=== PATIENT | female | born 1940 | race Caucasian/White ===

== ENCOUNTER 2016-08-07 02:57 | Inpatient (IN) ==
[2016-08-07] MEDS ORDERED: SODIUM CHLORIDE 0.9% 500 ML IV STA (03:06)
[2016-08-07] MEDS ORDERED: BUMETANIDE 1 MG/4 ML VIAL IV STA (03:06)
[2016-08-07] MEDS ORDERED: NITROGLYCERIN 2% OINT 1 INCH/GM PACK TOP STA (03:06)
[2016-08-07] MEDS ORDERED: ONDANSETRON 4 MG/2 ML VIAL IV STA (03:06)
[2016-08-07] MEDS ORDERED: MORPHINE 2 MG/1 ML SYRINGE IV STA (03:06)
[2016-08-07] MEDS ORDERED: NITROGLYCERIN 2% OINT 1 INCH/GM PACK TOP ONE (03:19)
[2016-08-07] MEDS ORDERED: ONDANSETRON 4 MG/2 ML VIAL ONE (03:19)
[2016-08-07] MEDS ORDERED: BUMETANIDE 1 MG/4 ML VIAL ONE (03:19)
[2016-08-07] MEDS ORDERED: MORPHINE 2 MG/1 ML SYRINGE ONE (03:20)
[2016-08-07 03:32] LABS: Allen Test Positive
[2016-08-07 03:34] LABS: ABG Base Excess -1.3 MMOL/L (-2.5-2.5); ABG HCO3 23.2 MMOL/L (20-26); ABG Oxygen Saturation 94.5 % (95-100); ABG PCO2 50.4 MM HG (35-48); ABG PH 7.313 (7.35-7.45); ABG PO2 76.9 MM HG (80-95); ABG TCO2 22.8 MMOL/L (23-27)
--- NOTE | 2016-08-07 03:39 | Emergency Department Note ---
Perri Mock Emily, am scribing for, and in the presence of, Dax Espinoza MD 03: 14. Alexis Mock Robert M, MD, personally performed the services described in this documentation, ascribed by Radha Rayo in my presence, and it is both accurate and complete 338 . 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 Pt had heart cath in May 2016, but no stents. She reports having noticed pedal edema in right leg more so than left since May, but denies weight gain. No other complaint/pain in ED. Onset (ago): minute(s) Consistency: constant Severity: moderate Severity scale (1-10): 6 Quality: aching, burning Allergies/Adverse Reactions: Allergies Allergy/AdvReac Type Severity Reaction Status Date / Time No Known Allergies Allergy Unverified 05/28/16 22:21 Home Medications: Home Medications Medication Instructions Recorded Confirmed Type Aspirin [Aspirin EC] 81 mg PO DAILY 05/29/16 08/07/16 History Carvedilol [Coreg] 12.5 mg PO BID 05/29/16 08/07/16 History Estrogens(Conj) Tab [Premarin Tab] 0.625 mg PO DAILY 05/29/16 08/07/16 History Gabapentin Cap/Tab [Neurontin 300 mg PO TID 05/29/16 08/07/16 History Cap/Tab] Irbesartan 300 mg PO DAILY 05/29/16 08/07/16 History Levothyroxine Sodium 150 mcg PO DAILY 05/29/16 08/07/16 History Meloxicam 7.5 mg PO DAILY 05/29/16 08/07/16 History Morphine ER Tab [Ms Contin] 30 mg PO BID 05/29/16 08/07/16 History Oxycodone HCl/Acetaminophen 1 each PO BID PRN 05/29/16 08/07/16 History [Percocet 7.5-325 mg Tablet] cloNIDine HCl [Clonidine HCl] 0.3 mg PO BEDTIME 05/29/16 08/07/16 History cloNIDine TAB [Catapres Tab] 0.2 mg PO DAILY 05/29/16 08/07/16 History clonazePAM TAB [KlonoPIN] 0.5 mg PO BEDTIME 05/29/16 08/07/16 History amLODIPine [Norvasc] 5 mg PO DAILY #30 tablet 05/31/16 08/07/16 Rx hydroCHLOROthiazide 12.5 mg PO DAILY #30 capsule 05/31/16 08/07/16 Rx [Hydrochlorothiazide] Review of System - Review of System 12 point system: reviewed and no additional remarkable complaints except as stated - Review of System Constitutional: Absent: fever, weight gain Head/Ears/Nose/Throat: Absent: nasal drainage Respiratory: Present: respiratory distress Cardiovascular: Present: chest pain, edema (in lower extremities more so in right than left) Gastrointestinal: Absent: abdominal pain, nausea, vomiting Medical,Surgical,& Family Hx - Medical History Musculoskeletal: History of: Back/Neck Problems - Surgical History Thoracic Surgeries: Patient denies;: Organ Transplant Neurologic Surgeries: Patient denies: Neurologic Surgery Reproductive Surgeries: Surgical HX of;: Hysterectomy Orthopedic Surgeries: Surgical HX of;: Spinal Surgery - Family History Family History: noncontributory - Social History Functional capacity: independent ambulation Exam Vital Signs: Vital Signs Temperature 98.2 F 08/07/16 03:00 Pulse Rate 61 08/07/16 03:00 Respiratory Rate 24 08/07/16 03:13 Blood Pressure 162/61 08/07/16 03:00 O2 Sat by Pulse Oximetry 90 L 08/07/16 03:00 - General General appearance: alert, in no apparent distress - Head Head exam: Present: atraumatic, normocephalic - Eye Eye exam: Present: PERRL, EOMI - ENT ENT exam: Present: mucous membranes moist. Absent: mucous membranes dry - Neck Neck exam: Present: full ROM. Absent: tenderness - Chest Chest inspection: Present: symmetric chest wall rise. Absent: tenderness - Respiratory Respiratory exam: Present: accessory muscle use (too distant to speak), rales, respiratory distress (mild to moderate), rhonchi. Absent: normal lung sounds bilaterally - Cardiovascular Cardiovascular exam: Present: tachycardia (mild), normal heart sounds - Abdominal Exam Abdominal exam: Present: soft, normal bowel sounds. Absent: tenderness - Extremities Exam Extremities exam: Present: full ROM, pedal edema (+1 greater in right than left) . Absent: tenderness - Neurological Exam Neurological exam: Present: alert, oriented X3, CN II-XII intact. Absent: motor sensory deficit - Psychiatric Psychiatric exam: Present: normal affect, normal mood - Skin Skin exam: Present: warm, dry Course - Consultations Consultation #1: Dr. Nelly Hutchinson will admit the patient to Dr. Ardon. Time: 04:12 Results - Labs CBC & BMP: 08/07/16 03:06 08/07/16 03:06 Lab Results: I have reviewed the patients labs Labs: Lab Results WBC 7.2 T/CUMM (4-12) 08/07/16 03:06 RBC 4.42 MC/CUMM (3.8-5.5) 08/07/16 03:06 Hgb 12.5 GM/DL (12.0-16.0) 08/07/16 03:06 Hct 37.4 VOL% (35.7-47.0) 08/07/16 03:06 MCV 84.6 FL (87-102) L 08/07/16 03:06 MCH 28 PG (27-34) 08/07/16 03:06 MCHC 33.4 GM/DL (32-36) 08/07/16 03:06 RDW 12.9 % (9.3-17.3) 08/07/16 03:06 Plt Count 375 T/CUMM (130-400) 08/07/16 03:06 MPV 10.4 FL (9.6-12.0) 08/07/16 03:06 Neut % (Auto) 56.5 % (38.7-73.9) 08/07/16 03:06 Lymph % (Auto) 26.6 % (21.3-54.2) 08/07/16 03:06 Amite % (Auto) 9.1 % (1.7-12.7) 08/07/16 03:06 Eos % (Auto) 6.2 % (0.00-10.9) 08/07/16 03:06 Baso % (Auto) 1.0 % (0.0-0.8) H 08/07/16 03:06 Neut # (Auto) 4.1 10*3/uL (1.4-7.4) 08/07/16 03:06 Lymph # (Auto) 1.9 10*3/uL (1.4-4.0) 08/07/16 03:06 [place]ite # (Auto) 0.7 10*3/uL (0.11-0.8) 08/07/16 03:06 Eos # (Auto) 0.5 10*3/uL (0.0-0.87) 08/07/16 03:06 Baso # (Auto) 0.1 10*3/uL (0.0-0.2) 08/07/16 03:06 Immature Gran % 0.6 % 08/07/16 03:06 Nucleated RBC % 0.0 /100WBC 08/07/16 03:06 Immature Gran # 0.04 # 08/07/16 03:06 Nucleated RBCs # 0.00 10*3/uL 08/07/16 03:06 INR 0.9 08/07/16 03:06 PT Patient/Control Mix 9.5 SECS 08/07/16 03:06 Sodium 131 MMOL/L (136-145) L 08/07/16 03:06 Potassium 4.7 MMOL/L (3.5-5.1) 08/07/16 03:06 Chloride 96 MMOL/L (98-107) L 08/07/16 03:06 Carbon Dioxide 28 MMOL/L (21-32) 08/07/16 03:06 Anion Gap 11.7 MMOL/L (5.0-15.0) 08/07/16 03:06 BUN 28 MG/DL (7-18) H 08/07/16 03:06 Creatinine 1.50 MG/DL (0.55-1.02) H 08/07/16 03:06 GFR Calculation 33 ML/MIN 08/07/16 03:06 BUN/Creatinine Ratio 18.00 RATIO (6.00-20.00) 08/07/16 03:06 Glucose 140 MG/DL (74-106) H 08/07/16 03:06 Calculated Osmolality 269.7 MOS/KG (273-304) L 08/07/16 03:06 Calcium 8.4 MG/DL (8.5-10.1) L 08/07/16 03:06 Magnesium 2.9 MG/DL (1.8-2.4) H 08/07/16 03:06 Total Bilirubin < 0.39 MG/DL (0.2-1.0) 08/07/16 03:06 AST 110 U/L (0-37) H 08/07/16 03:06 ALT 26 U/L (13-56) 08/07/16 03:06 Alkaline Phosphatase 111 U/L (45-117) 08/07/16 03:06 Troponin I < 0.015 NG/ML (0.00-0.045) 08/07/16 03:06 Total Protein 7.3 G/DL (6.4-8.3) 08/07/16 03:06 Albumin 3.7 G/DL (3.4-5.0) 08/07/16 03:06 Globulin 3.6 G/DL (2.3-3.5) H 08/07/16 03:06 Albumin/Globulin Ratio 1.0 RATIO (1.1-2.2) L 08/07/16 03:06 ABG pH 7.313 (7.35-7.45) L 08/07/16 03:25 ABG pCO2 50.4 MM HG (35-48) H 08/07/16 03:25 ABG pO2 76.9 MM HG (80-95) L 08/07/16 03:25 ABG HCO3 23.2 MMOL/L (20-26) 08/07/16 03:25 ABG Total CO2 22.8 MMOL/L (23-27) L 08/07/16 03:25 ABG O2 Saturation 94.5 % (95-100) L 08/07/16 03:25 ABG Base Excess -1.3 MMOL/L (-2.5-2.5) 08/07/16 03:25 FiO2 36.00 PERCENT (0-100) 08/07/16 03:25 - Diagnostic Findings Procedure: Chest x-ray: image reviewed by me (Right lower lobe opacity which is slightly more prominent than the left suggests pneumonia versus asymmetric CHF/ pulmonary edema versus pleural effusion) Disposition Clinical Impression: Respiratory distress, Hypoxia, Hypertension, Chronic low back pain, Probable asymmetric pulmonary edema, CHF (congestive heart failure) Case discussed with: patient, patient's family Disposition: Still a Patient Condition: Stable Time of Disposition: 04:11
[2016-08-07 03:48] LABS: Alanine Aminotransferase 26 U/L (13-56); Albumin 3.7 G/DL (3.4-5.0); Alkaline Phosphatase 111 U/L (45-117); Aspartate Amino Transferase 110 U/L (0-37); Bilirubin,Total < 0.39 MG/DL (0.2-1.0); Blood Urea Nitrogen 28 MG/DL (7-18); Calcium 8.4 MG/DL (8.5-10.1); Glucose 140 MG/DL (74-106); Magnesium 2.9 MG/DL (1.8-2.4); Osmolality,Calculated 269.7 MOS/KG (273-304); Potassium 4.7 MMOL/L (3.5-5.1); Sodium 131 MMOL/L (136-145); Total Protein 7.3 G/DL (6.4-8.3); Troponin I Only < 0.015 NG/ML (0.00-0.045)
[2016-08-07 03:49] LABS: Basophils # 0.1 10*3/uL (0.0-0.2); Eosinophils # 0.5 10*3/uL (0.0-0.87); Eosinophils % 6.2 % (0.00-10.9); Hematocrit 37.4 VOL% (35.7-47.0); Hemoglobin 12.5 GM/DL (12.0-16.0); Immature Granulocytes % 0.6 %; Immature Granulocytes Absolute 0.04 #; Lymphocytes # 1.9 10*3/uL (1.4-4.0); Lymphocytes % 26.6 % (21.3-54.2); Mean Corpuscular HGB Conc 33.4 GM/DL (32-36); Mean Corpuscular Hemoglobin 28 PG (27-34); Mean Corpuscular Volume 84.6 FL (87-102); Mean Platelet Volume 10.4 FL (9.6-12.0); Monocytes # 0.7 10*3/uL (0.11-0.8); Monocytes % 9.1 % (1.7-12.7); Neutrophils # 4.1 10*3/uL (1.4-7.4); Neutrophils % 56.5 % (38.7-73.9); Platelet Count 375 T/CUMM (130-400); Red Blood Count 4.42 MC/CUMM (3.8-5.5); Red Cell Distribution Width 12.9 % (9.3-17.3); White Blood Count 7.2 T/CUMM (4-12)
[2016-08-07 03:59] LABS: INR 0.9; PT Patient Result 9.5 SECS
[2016-08-07] MEDS ORDERED: cefTRIAXone 1,000 MG VIAL IV STA (04:09)
[2016-08-07] MEDS ORDERED: ACETAMINOPHEN 325 MG TABLET PO PRN (04:18)
[2016-08-07] MEDS ORDERED: ONDANSETRON 4 MG/2 ML VIAL IV PRN (04:18)
[2016-08-07] MEDS ORDERED: BISACODYL 5 MG TABLET PO PRN (04:18)
[2016-08-07] MEDS ORDERED: IBUPROFEN 600 MG TABLET PO PRN (04:18)
[2016-08-07] MEDS ORDERED: cefTRIAXone 1,000 MG VIAL ONE (04:22)
--- NOTE | 2016-08-07 05:01 | EKG Report ---
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
--- NOTE | 2016-08-07 07:19 | XRay Report ---
XR chest 1V portable Indication: Shortness of breath. Chest one view: Worsening right lower lobe pneumonia when compared 05/28/2016. There is some degree of infiltrate left lung base as well, as well as diffuse coarsening of interstitium of both lungs. Borderline cardiomegaly is stable. Impression: Worsening bibasilar pneumonia since May, especially on the right. PROCEDURE INTERPRETED AT [facility] DEPARTMENT OF RADIOLOGY Final Report Signed by: Hector Shell M.D.
[2016-08-07] MEDS: MELOXICAM 7.5 MG TABLET PO SCH (08:33)
[2016-08-07] MEDS: hydroCHLOROthiazide 12.5 MG CAPSULE PO SCH (08:33)
[2016-08-07] MEDS: ESTROGENS (CONJ) 0.625 MG TABLET PO SCH (08:33)
[2016-08-07] MEDS: ASPIRIN EC 81 MG TABLET PO SCH (08:34)
[2016-08-07] MEDS: IRBESARTAN 150 MG TABLET PO SCH (08:34)
[2016-08-07] MEDS: amLODIPine 5 MG TABLET PO SCH (08:34)
[2016-08-07] MEDS: cloNIDine 0.1 MG TABLET PO SCH ×2 (08:34→20:54)
[2016-08-07] MEDS: LEVOTHYROXINE 150 MCG TABLET PO SCH (08:34)
[2016-08-07] MEDS: GABAPENTIN 300 MG CAPSULE PO SCH ×3 (08:40→20:41)
[2016-08-07] MEDS: FUROSEMIDE 40 MG/4 ML VIAL IV SCH ×2 (08:40→20:43)
[2016-08-07] MEDS: CARVEDILOL 12.5 MG TABLET PO SCH ×2 (08:40→20:55)
[2016-08-07] MEDS: DOCUSATE SODIUM 100 MG CAPSULE PO SCH ×2 (08:40→20:41)
[2016-08-07] MEDS: PANTOPRAZOLE 40 MG TABLET PO SCH (08:49)
[2016-08-07 08:58] LABS: Apearance,Urine CLEAR (Clear); Bilirubin,Urine Negative (Negative); Blood, Urine Negative (Negative); Glucose,Urine (UA) Negative (Negative); Hyaline Casts,Urine 1 /LPF (0-3); Ketones,Urine Negative (Negative); Nitrite,Urine Negative (Negative); Protein,Urine Negative; RBC,Urine <1 /HPF (0-4); Urine Color Light Yellow (Yellow); Urine Specific Gravity 1.003 (1.001-1.035); Urine Urobilinogen < 2.0 EU/DL (0.2-1.0)
--- NOTE | 2016-08-07 09:36 | Family Practice History&Phys ---
Assessment and Plan (1) Chronic low back pain Status: Chronic Assessment and plan: 618 7: We will continue current medication of MS Perez. I am going to hold her Percocet for now Current Visit: No (2) Hypertension Status: Chronic Assessment and plan: 08/07/2016: Continue her current medicines for hypertension. Current Visit: No (3) Chest pain unknown etiology Status: Resolved Assessment and plan: 08/07/2016:. I do not believe this is cardiac origin but abnormal repeat a set of slices enzymes. Current Visit: No History of Present Illness Chief complaint: Dyspnea, burning chest pain History of present illness: Ms. Whatley is a 76 year old female A primary patient of Dr. Osiel Ardon. 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 Came in early this morning with complaints of having chest discomfort but describes it as "burning". She apparently had a republican last night and did not get into bed until 130 to 2:00 in the morning and she was going to bed and developed this pain. She denies any alcohol. She does not smoke and is stable otherwise. It was not associated with any diaphoresis nausea or vomiting. It was equivocally reproducible with deep palpation anteriorly. There was no pain in her left arm and or jaw. She recently had a cath done this past May and it was reported there with is no significant coronary artery disease. At this time she is stable in no acute distress. I do not believe this is cardiac origin as her initial troponin is less than 0.015. I will repeat a set for clarity. She is certainly not having any pain at this time. CBC is normal. ABGs revealed a PO2 of 76 PCO2 50 pH of 7.3. Chemistry is grossly normal except for slight elevation of creatinine 1.5. Urinalysis was negative. Home Medications Medication Instructions Recorded Confirmed Type Aspirin [Aspirin EC] 81 mg PO DAILY 05/29/16 08/07/16 History Carvedilol [Coreg] 12.5 mg PO BID 05/29/16 08/07/16 History Estrogens(Conj) Tab [Premarin Tab] 0.625 mg PO DAILY 05/29/16 08/07/16 History Gabapentin Cap/Tab [Neurontin 300 mg PO TID 05/29/16 08/07/16 History Cap/Tab] Irbesartan 300 mg PO DAILY 05/29/16 08/07/16 History Levothyroxine Sodium 150 mcg PO DAILY 05/29/16 08/07/16 History Meloxicam 7.5 mg PO DAILY 05/29/16 08/07/16 History Morphine ER Tab [Ms Contin] 30 mg PO BID 05/29/16 08/07/16 History Oxycodone HCl/Acetaminophen 1 each PO BID PRN 05/29/16 08/07/16 History [Percocet 7.5-325 mg Tablet] cloNIDine HCl [Clonidine HCl] 0.3 mg PO BEDTIME 05/29/16 08/07/16 History cloNIDine TAB [Catapres Tab] 0.2 mg PO DAILY 05/29/16 08/07/16 History clonazePAM TAB [KlonoPIN] 0.5 mg PO BEDTIME 05/29/16 08/07/16 History amLODIPine [Norvasc] 5 mg PO DAILY #30 tablet 05/31/16 08/07/16 Rx hydroCHLOROthiazide 12.5 mg PO DAILY #30 capsule 05/31/16 08/07/16 Rx [Hydrochlorothiazide] Allergies Allergy/AdvReac Type Severity Reaction Status Date / Time No Known Allergies Allergy Unverified 05/28/16 22:21 12 point system: reviewed and no additional remarkable complaints except as stated (That mentioned in the H&P and physical) Medical,Surgical,& Family Hx - Medical History Cardio: History of: CHF (DX PRESENTLY), Hypertension No history of: Aneurysm, Cardiac Dysrhythmia, Cerebrovascular Disease, [place], Pacemaker, PVD, Valvular Heart Disease, Cardiovascular Problems HEENT: History of: Eye Problem (READING GLASSES), Glaucoma, HEENT Problems ( SINUS (COUGH,RUNNY NOSE)) No history of: Ear Problem, Dental Problems, Oral Cancer Endocrine: History of: Thyroid Disorder No history of: Adrenal Disease, Diabetes Mellitus (IDDM), Diabetes Mellitus ( NIDDM), Endocrine Cancer Respiratory: History of: Respiratory Problems (SOB IN MAY AND JULY 2016) No history of: Asthma, Bronchitis, COPD, Intubation, Obstructive Sleep Apnea , Pulmonary Embolism, Pulmonary Hypertension, Pneumonia, Lung Cancer Genitourinary: History of: Recurring Urinary Tract Infections (WHEN WAS YOUNG), Problems (STRESS INCONTINENCE) Gastrointestinal: History of: GI Problems (HX BURNING IN CHEST AT NIGHT BUT NO DIAGNOISIS GERD) Musculoskeletal: History of: Back/Neck Problems, Herniated Disk, Musculoskeletal Problems (ARTHRITIS) - Surgical History Cardiac Surgeries: Sugical HX of: Cardiac Catheterization (MAY 2016 DR VELAZQUEZ) Thoracic Surgeries: Patient denies;: Kidney (Renal Surgery), Lithotripsy, Nephrectomy, Organ Transplant, Lobectomy Neurologic Surgeries: Patient denies: Neurologic Surgery HEENT Surgeries: Surgical HX of: Thyroid Surgery Patient denies: Eye Surgery, Tonsilectomy & Adenoidectomy Abdominal Surgeries: Surgical HX of: Abdominal Surgery, Appendectomy, Colonoscopy, EGD Patient denies: Cholecystectomy, Gastric Bypass Surgery, Hernia Repair Reproductive Surgeries: Surgical HX of;: Gynecologic Surgery, Hysterectomy Patient denies;: Cystoscopy, Genitourinary Surgery Orthopedic Surgeries: Surgical HX of;: Orthopedic Surgery (HERNIATED DISC), Spinal Surgery (NECK) - Family History Family History: Reports;: Family Anesthesia Reaction (SISTER (TROUBLE WAKING UP) ), Family Hypertension (BRO,SIS), Family Stroke (DAD) Denies;: Family Cancer, Family Diabetes, Family Heart Disease, Family Hematology, Family Psychiatric Problems, Additional Family History - Social History Smoking Status: Never smoker Frequency of Alcohol Use: None Type of Drug Use: None Exam - Constitutional Vitals: Period Temp Pulse Resp BP Sys/[place] Pulse Ox Last 24 Hr 98.2 F-98.2 F 61-61 18-24 162-162/61-61 90 Exam: Generally a pleasant lady. She is alert and oriented. I am a little concerned about mild depression. HEENT pupils are equal reactive to light extraocular movements are intact neck supple and trachea midline. There is no thyromegaly Cardiovascular rate is regular no gallop or rub. EKG reveals sinus rhythm with prolonged IL interval and occasional PVCs. Lungs are clear no shortness of breath at this time Abdomen soft nondistended Extremities no clubbing cyanosis. She does have less than 1+ edema of her right leg on. This is somewhat chronic Results - Labs CBC & BMP: 08/07/16 03:06 08/07/16 03:06
[2016-08-07] MEDS: MORPHINE ER 30 MG TABLET PO SCH ×2 (11:01→20:41)
[2016-08-07 11:32] LABS: Troponin I Only 0.096 NG/ML (0.00-0.045)
[2016-08-07] MEDS: clonazePAM 0.5 MG TABLET PO SCH (20:41)
[2016-08-08 05:16] LABS: Basophils # 0.1 10*3/uL (0.0-0.2); Basophils % 1.2 % (0.0-0.8); Eosinophils # 0.5 10*3/uL (0.0-0.87); Eosinophils % 8.2 % (0.00-10.9); Hematocrit 32.5 VOL% (35.7-47.0); Hemoglobin 10.8 GM/DL (12.0-16.0); Immature Granulocytes % 0.2 %; Immature Granulocytes Absolute 0.01 #; Lymphocytes % 35.1 % (21.3-54.2); Mean Corpuscular HGB Conc 33.2 GM/DL (32-36); Mean Corpuscular Hemoglobin 28 PG (27-34); Mean Corpuscular Volume 83.1 FL (87-102); Monocytes # 0.8 10*3/uL (0.11-0.8); Monocytes % 13.2 % (1.7-12.7); Neutrophils # 2.4 10*3/uL (1.4-7.4); Neutrophils % 42.1 % (38.7-73.9); Platelet Count 331 T/CUMM (130-400); Red Blood Count 3.91 MC/CUMM (3.8-5.5); Red Cell Distribution Width 12.8 % (9.3-17.3); White Blood Count 5.7 T/CUMM (4-12)
[2016-08-08 05:46] LABS: Calcium 8.3 MG/DL (8.5-10.1); Magnesium 2.7 MG/DL (1.8-2.4); Osmolality,Calculated 276.1 MOS/KG (273-304); Potassium 4.1 MMOL/L (3.5-5.1)
--- NOTE | 2016-08-08 08:11 | Family Practice History&Phys ---
Assessment and Plan (1) Chest pain unknown etiology Status: Acute Assessment and plan: Symptoms are more consistent with chest wall pain versus GI etiology. She had a recent cardiac catheterization was unremarkable. Patient still concerned about a cardiac etiology. Will have cardiology eval and then obtain additional studies as needed Current Visit: No (2) Dyspnea on exertion Status: Chronic Assessment and plan: Patient states she has had chronic dyspnea with exertion. Current Visit: No (3) Chronic low back pain Status: Chronic Assessment and plan: Chronic treated pain clinic Current Visit: No (4) Hypertension Status: Chronic Assessment and plan: Stable on present medication Current Visit: No History of Present Illness Chief complaint: Chest pain and dyspnea History of present illness: Ms. Whatley is a 76 year old female . Chacorta is a 76 year old female A primary patient of Dr. Osiel Ardon. 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 Came in early this morning with complaints of having chest discomfort but describes it as "burning". She apparently had a republican last night and did not get into bed until 130 to 2:00 in the morning and she was going to bed and developed this pain. She denies any alcohol. She does not smoke and is stable otherwise. It was not associated with any diaphoresis nausea or vomiting. It was equivocally reproducible with deep palpation anteriorly. There was no pain in her left arm and or jaw. She recently had a cath done this past May and it was reported there with is no significant coronary artery disease. At this time she is stable in no acute distress. I do not believe this is cardiac origin as her initial troponin is less than 0.015. Patient is concerned that her complaints are related to her Heart. It is more consistent with chest wall or GI related. Patient states that she feels it is not related to that. In view of history we will admit further evaluation and therapy Home Medications Medication Instructions Recorded Confirmed Type Aspirin [Aspirin EC] 81 mg PO DAILY 05/29/16 08/07/16 History Carvedilol [Coreg] 12.5 mg PO BID 05/29/16 08/07/16 History Estrogens(Conj) Tab [Premarin Tab] 0.625 mg PO DAILY 05/29/16 08/07/16 History Gabapentin Cap/Tab [Neurontin 300 mg PO TID 05/29/16 08/07/16 History Cap/Tab] Irbesartan 300 mg PO DAILY 05/29/16 08/07/16 History Levothyroxine Sodium 150 mcg PO DAILY 05/29/16 08/07/16 History Meloxicam 7.5 mg PO DAILY 05/29/16 08/07/16 History Morphine ER Tab [Ms Contin] 30 mg PO BID 05/29/16 08/07/16 History Oxycodone HCl/Acetaminophen 1 each PO BID PRN 05/29/16 08/07/16 History [Percocet 7.5-325 mg Tablet] cloNIDine HCl [Clonidine HCl] 0.3 mg PO BEDTIME 05/29/16 08/07/16 History cloNIDine TAB [Catapres Tab] 0.2 mg PO DAILY 05/29/16 08/07/16 History clonazePAM TAB [KlonoPIN] 0.5 mg PO BEDTIME 05/29/16 08/07/16 History amLODIPine [Norvasc] 5 mg PO DAILY #30 tablet 05/31/16 08/07/16 Rx hydroCHLOROthiazide 12.5 mg PO DAILY #30 capsule 05/31/16 08/07/16 Rx [Hydrochlorothiazide] Allergies Allergy/AdvReac Type Severity Reaction Status Date / Time No Known Allergies Allergy Unverified 05/28/16 22:21 Medical,Surgical,& Family Hx - Medical History Cardio: History of: CHF (DX PRESENTLY), Hypertension No history of: Aneurysm, Cardiac Dysrhythmia, Cerebrovascular Disease, [place], Pacemaker, PVD, Valvular Heart Disease, Cardiovascular Problems HEENT: History of: Eye Problem (READING GLASSES), Glaucoma, HEENT Problems ( SINUS (COUGH,RUNNY NOSE)) No history of: Ear Problem, Dental Problems, Oral Cancer Endocrine: History of: Thyroid Disorder No history of: Adrenal Disease, Diabetes Mellitus (IDDM), Diabetes Mellitus ( NIDDM), Endocrine Cancer Respiratory: History of: Respiratory Problems (SOB IN MAY AND JULY 2016) No history of: Asthma, Bronchitis, COPD, Intubation, Obstructive Sleep Apnea , Pulmonary Embolism, Pulmonary Hypertension, Pneumonia, Lung Cancer Genitourinary: History of: Recurring Urinary Tract Infections (WHEN WAS YOUNG), Problems (STRESS INCONTINENCE) Gastrointestinal: History of: GI Problems (HX BURNING IN CHEST AT NIGHT BUT NO DIAGNOISIS GERD) Musculoskeletal: History of: Back/Neck Problems, Herniated Disk, Musculoskeletal Problems (ARTHRITIS) - Surgical History Cardiac Surgeries: Sugical HX of: Cardiac Catheterization (MAY 2016 DR VELAZQUEZ) Thoracic Surgeries: Patient denies;: Kidney (Renal Surgery), Lithotripsy, Nephrectomy, Organ Transplant, Lobectomy Neurologic Surgeries: Patient denies: Neurologic Surgery HEENT Surgeries: Surgical HX of: Thyroid Surgery Patient denies: Eye Surgery, Tonsilectomy & Adenoidectomy Abdominal Surgeries: Surgical HX of: Abdominal Surgery, Appendectomy, Colonoscopy, EGD Patient denies: Cholecystectomy, Gastric Bypass Surgery, Hernia Repair Reproductive Surgeries: Surgical HX of;: Gynecologic Surgery, Hysterectomy Patient denies;: Cystoscopy, Genitourinary Surgery Orthopedic Surgeries: Surgical HX of;: Orthopedic Surgery (HERNIATED DISC), Spinal Surgery (NECK) - Family History Family History: Reports;: Family Anesthesia Reaction (SISTER (TROUBLE WAKING UP) ), Family Hypertension (BRO,SIS), Family Stroke (DAD) Denies;: Family Cancer, Family Diabetes, Family Heart Disease, Family Hematology, Family Psychiatric Problems, Additional Family History - Social History Smoking Status: Never smoker Frequency of Alcohol Use: None Type of Drug Use: None Marital Status: Lives With:: Alone Functional capacity: independent ambulation Exam - Constitutional Vitals: Period Temp Pulse Resp BP Sys/[place] Pulse Ox Last 24 Hr 96.9 F-98.3 F 49-51 18-21 103-135/54-70 94-98 General appearance: no acute distress - Head Head exam: Present: normal inspection - Eye Pupils: Present: CHALINO - ENT ENT exam: Present: normal exam - Neck Neck exam: Present: normal inspection - Respiratory Respiratory exam: Present: clear to auscultation bilaterally - Cardiovascular Cardiovascular exam: Present: regular rate and rhythm - GI/Abdominal GI/Abdominal exam: Present: normal bowel sounds, soft - Extremities Exam Extremities exam: Present: normal inspection - Back Exam Back exam: Present: normal inspection - Neurological Exam Neurological exam: Present: alert, oriented X3 - Psychiatric Psychiatric exam: Present: normal affect - Skin Skin exam: Present: normal color Results - Labs CBC & BMP: 08/08/16 04:41 08/08/16 04:41
[2016-08-08] MEDS: ASPIRIN EC 81 MG TABLET PO SCH (09:09)
[2016-08-08] MEDS: LEVOTHYROXINE 150 MCG TABLET PO SCH (09:10)
[2016-08-08] MEDS: IRBESARTAN 150 MG TABLET PO SCH (09:10)
[2016-08-08] MEDS: amLODIPine 5 MG TABLET PO SCH (09:10)
[2016-08-08] MEDS: MORPHINE ER 30 MG TABLET PO SCH ×2 (09:10→20:11)
[2016-08-08] MEDS: cloNIDine 0.1 MG TABLET PO SCH ×2 (09:10→20:10)
[2016-08-08] MEDS: GABAPENTIN 300 MG CAPSULE PO SCH ×3 (09:10→20:11)
[2016-08-08] MEDS: MELOXICAM 7.5 MG TABLET PO SCH (09:10)
[2016-08-08] MEDS: CARVEDILOL 12.5 MG TABLET PO SCH ×2 (09:10→20:11)
[2016-08-08] MEDS: hydroCHLOROthiazide 12.5 MG CAPSULE PO SCH (09:11)
[2016-08-08] MEDS: FUROSEMIDE 40 MG/4 ML VIAL IV SCH ×3 (09:11→20:11)
[2016-08-08] MEDS: PANTOPRAZOLE 40 MG TABLET PO SCH (09:11)
[2016-08-08] MEDS: DOCUSATE SODIUM 100 MG CAPSULE PO SCH ×2 (09:11→20:11)
[2016-08-08] MEDS: ESTROGENS (CONJ) 0.625 MG TABLET PO SCH (09:11)
--- NOTE | 2016-08-08 11:09 | Cardiology Consult Note ---
Danielito Mock Vanessa, RN, am scribing for, and in the presence of, Ralph Boyle MD 11:05. Assessment and Plan - Time spent with patient Time spent with patient: Greater than 30 minutes (1) Chest pain unknown etiology Status: Acute Assessment and plan: The patient is having some recurrent chest pain symptoms. She had this worked up in May with cardiac catheterization that did not show any significant obstructive coronary artery disease and she had normal left ventricular function. She is describing this as a burning and subsequently developed some wheezing. Clinically I think it is most likely that this is gastroesophageal reflux related. She denies ever having endoscopy. This might be an option in her workup. She does have a trivial troponin abnormality, and some subtle EKG changes so I cannot rule out the possibility of pericarditis, but clinically this seems more like gastroesophageal reflux. I would not want to put her on Indocin unless she had an endoscopy which was normal/benign. Current Visit: No (2) Dyspnea on exertion Status: Chronic Assessment and plan: This is a chronic issue. It has not recently worsened in severity. It sounds like after she had the burning chest pain she had some subsequent "wheezing and gurgling" which could also be related to gastroesophageal reflux. Current Visit: No (3) Hypertension Status: Chronic Assessment and plan: Overall, fairly well-controlled. Current Visit: No (4) Hypothyroidism Status: Acute Assessment and plan: Thyroid supplement has been continued Current Visit: Yes (5) Dyslipidemia Status: Chronic Assessment and plan: Patient has not been previously started on statin therapy due to mild elevation of LFTs without clear etiology. Current Visit: Yes (6) Overweight Status: Chronic Current Visit: No History of Present Illness - Data of Consult Patient: known to practice within the last 3 years Consult date: 08/08/16 Requesting Physician: Ernie Hutchinson - Consult Narrative Reason for consult: chest pain History of present illness: PRIMARY CRUISE COORDINATOR: DR. TUTTLE Ms. Whatley is a 76 year old white female with risk factors significant for: age, hypertension, dyslipidemia, and previously known history of CAD. Past medical history includes hypothyroidism, GERD, and fibromyalgia. Patient has had previous cardiac workup per Dr. Tuttle with cardiac catheterization in May 2016 for exertional chest pain and progressive dyspnea on exertion with woods zone troponin. Cardiac cath with no significant obstructive or fixed lesions, and normal LV function with ejection fraction greater than 55%, and mild aortic stenosis. Echocardiogram with normal LV function, mild to moderate TR, RVSP 41 mmHg. She was last evaluated by Dr. Tuttle in clinic on June 09, and her exertional dyspnea was stable, she was not experiencing chest pain, and she had no orthopnea, PND, palpitation, or significant lower extremity edema. Patient presented to the emergency room overnight on August 07 complaining of chest pain described as a "burning". Patient had no associated diaphoresis, nausea, or vomiting. EKG without acute ischemic finding. Chest x-ray with bibasilar pneumonia with worsening of right lower lobe and left lower lobe infiltrate. She also c/o wheezing/shortness of breath. She had a Trivial troponin level 0.096. Upon exam and interview, patient is sitting up in bedside chair conversation with nursing staff. She is in no acute distress. Denies any recent or current chest pain, dyspnea, or other anginal complaint. Reports she did have some swelling of her right lower extremity which has improved since hospital admission. Trace pretibial edema right lower extremity seen. Ms. Whaltey reports she experienced "burning" of the left and right chest after going to bed 2 nights ago. There was no radiation of the discomfort, and there was no associated diaphoresis, nausea, vomiting, presyncope, or other. During exam, patient does have some mild reproducible chest wall soreness which she reports is similar to discomfort she experienced switched prompted her presentation to the emergency room. She tells me that since she last saw Dr. Tuttle in clinic at May, she has joined a gym and works out a few times a week. She denies exertional chest discomfort or dyspnea during her workouts. She reports a nonproductive cough for 3 months, and she reports that she has had difficulty with sinus congestion also. Denies fever chills. No orthopnea, PND, palpitation, presyncope. Systolic BP 125-155 mmHg. Patient has been diuresed with IV Lasix since admission with moderate urine output. Labs reviewed. Cell counts stable. Sodium 135, potassium 4.1, magnesium 2.7. Troponin 0.096. BN P1 181. Creatinine 1.4 with GFR 38. Ms. Whatley is requesting to go home today and is requesting "some pills to make my chest feel better". Home Medications Medication Instructions Recorded Confirmed Type Aspirin [Aspirin EC] 81 mg PO DAILY 05/29/16 08/07/16 History Carvedilol [Coreg] 12.5 mg PO BID 05/29/16 08/07/16 History Estrogens(Conj) Tab [Premarin Tab] 0.625 mg PO DAILY 05/29/16 08/07/16 History Gabapentin Cap/Tab [Neurontin 300 mg PO TID 05/29/16 08/07/16 History Cap/Tab] Irbesartan 300 mg PO DAILY 05/29/16 08/07/16 History Levothyroxine Sodium 150 mcg PO DAILY 05/29/16 08/07/16 History Meloxicam 7.5 mg PO DAILY 05/29/16 08/07/16 History Morphine ER Tab [Ms Contin] 30 mg PO BID 05/29/16 08/07/16 History Oxycodone HCl/Acetaminophen 1 each PO BID PRN 05/29/16 08/07/16 History [Percocet 7.5-325 mg Tablet] cloNIDine HCl [Clonidine HCl] 0.3 mg PO BEDTIME 05/29/16 08/07/16 History cloNIDine TAB [Catapres Tab] 0.2 mg PO DAILY 05/29/16 08/07/16 History clonazePAM TAB [KlonoPIN] 0.5 mg PO BEDTIME 05/29/16 08/07/16 History amLODIPine [Norvasc] 5 mg PO DAILY #30 tablet 05/31/16 08/07/16 Rx hydroCHLOROthiazide 12.5 mg PO DAILY #30 capsule 05/31/16 08/07/16 Rx [Hydrochlorothiazide] CC: Piyush Ardon, DO - Home Medications and Allergies Home Medications: Home Medications Medication Instructions Recorded Confirmed Type Aspirin [Aspirin EC] 81 mg PO DAILY 05/29/16 08/07/16 History Carvedilol [Coreg] 12.5 mg PO BID 05/29/16 08/07/16 History Estrogens(Conj) Tab [Premarin Tab] 0.625 mg PO DAILY 05/29/16 08/07/16 History Gabapentin Cap/Tab [Neurontin 300 mg PO TID 05/29/16 08/07/16 History Cap/Tab] Irbesartan 300 mg PO DAILY 05/29/16 08/07/16 History Levothyroxine Sodium 150 mcg PO DAILY 05/29/16 08/07/16 History Meloxicam 7.5 mg PO DAILY 05/29/16 08/07/16 History Morphine ER Tab [Ms Contin] 30 mg PO BID 05/29/16 08/07/16 History Oxycodone HCl/Acetaminophen 1 each PO BID PRN 05/29/16 08/07/16 History [Percocet 7.5-325 mg Tablet] cloNIDine HCl [Clonidine HCl] 0.3 mg PO BEDTIME 05/29/16 08/07/16 History cloNIDine TAB [Catapres Tab] 0.2 mg PO DAILY 05/29/16 08/07/16 History clonazePAM TAB [KlonoPIN] 0.5 mg PO BEDTIME 05/29/16 08/07/16 History amLODIPine [Norvasc] 5 mg PO DAILY #30 tablet 05/31/16 08/07/16 Rx hydroCHLOROthiazide 12.5 mg PO DAILY #30 capsule 05/31/16 08/07/16 Rx [Hydrochlorothiazide] Allergies/Adverse Reactions: Allergies Allergy/AdvReac Type Severity Reaction Status Date / Time No Known Allergies Allergy Unverified 05/28/16 22:21 - Constitutional Constitutional: Present: fatigue. Absent: anorexia, chills, daytime sleepiness , fever(s), frequent falls, lethargy, night sweats, stops breathing during sleep , weakness, weight gain, weight loss - EENT Eyes: Absent: blurry vision, loss of vision Ears: Absent: decreased hearing Nose, mouth and throat: Present: nasal congestion. Absent: dysphagia, epistaxis , neck pain, sinus pressure - Cardiovascular Cardiovascular: Present: dyspnea on exertion. Absent: chest pain at rest, chest pain with activity, claudication, diaphoresis, dyspnea, edema, radiating jaw, neck or arm pain, lightheadedness, orthopnea, palpitations, PND - Respiratory Respiratory: Present: cough, dyspnea on exertion. Absent: dyspnea, hemoptysis, pain on inspiration, change in phlegm color - Gastrointestinal Gastrointestinal: Absent: abdominal pain, bloating, change in bowel habits, constipation, diarrhea, dysphagia, early satiety, melena, nausea, vomiting - Genitourinary Genitourinary: Absent: dysuria, flank pain, hematuria - Musculoskeletal Musculoskeletal: Present: arthralgias, back pain, myalgias - Neurological Neurological: Absent: abnormal gait, abnormal speech, confusion, dizziness, syncope, tremor(s) - Psychiatric Psychiatric: Present: anxiety. Absent: confusion, depression - Endocrine Endocrine: Absent: cold intolerance, heat intolerance - Hematologic/Lymphatic Hematologic/Lymphatic: Absent: easy bleeding, easy bruising Medical,Surgical,& Family Hx - Medical History Cardio: History of: Hypertension No history of: Aneurysm, Cardiac Dysrhythmia, Cerebrovascular Disease, [place], Pacemaker, PVD, Valvular Heart Disease, Cardiovascular Problems Psychological: History of: Anxiety Disorders, Depression Neurology: No history of: Dementia, Seizures, TIA HEENT: History of: Eye Problem (READING GLASSES), Glaucoma, HEENT Problems ( SINUS (COUGH,RUNNY NOSE)) No history of: Ear Problem, Dental Problems, Oral Cancer Endocrine: History of: Thyroid Disorder No history of: Adrenal Disease, Diabetes Mellitus (IDDM), Diabetes Mellitus ( NIDDM), Endocrine Cancer Respiratory: History of: Respiratory Problems (SOB IN MAY AND JULY 2016) No history of: Asthma, Bronchitis, COPD, Intubation, Obstructive Sleep Apnea , Pulmonary Embolism, Pulmonary Hypertension, Pneumonia, Lung Cancer Genitourinary: History of: Problems (STRESS INCONTINENCE) Gastrointestinal: History of: GERD, GI Problems (HX BURNING IN CHEST AT NIGHT BUT NO DIAGNOISIS GERD) Musculoskeletal: History of: Back/Neck Problems, Herniated Disk, Musculoskeletal Problems (ARTHRITIS) Other: No history of: Cancer - Surgical History Cardiac Surgeries: Sugical HX of: Cardiac Catheterization (MAY 2016 DR TUTTLE) Patient Denies: Internal Defibrillator Thoracic Surgeries: Patient denies;: Kidney (Renal Surgery), Lithotripsy, Nephrectomy, Organ Transplant, Lobectomy Neurologic Surgeries: Patient denies: Neurologic Surgery HEENT Surgeries: Surgical HX of: Thyroid Surgery Patient denies: Eye Surgery, Tonsilectomy & Adenoidectomy Abdominal Surgeries: Surgical HX of: Abdominal Surgery, Appendectomy, Colonoscopy, EGD Patient denies: Cholecystectomy, Gastric Bypass Surgery, Hernia Repair Reproductive Surgeries: Surgical HX of;: Gynecologic Surgery, Hysterectomy Patient denies;: Cystoscopy, Genitourinary Surgery Orthopedic Surgeries: Surgical HX of;: Orthopedic Surgery (HERNIATED DISC), Spinal Surgery (NECK) - Family History Family History: Reports;: Family Anesthesia Reaction (SISTER (TROUBLE WAKING UP) ), Family Hypertension (BRO,SIS), Family Stroke (DAD) Denies;: Family Cancer, Family Diabetes, Family Heart Disease, Family Hematology, Family Psychiatric Problems, Additional Family History - Social History Smoking Status: Never smoker Frequency of Alcohol Use: None Type of Drug Use: None Physical Examination Vital Signs Temp Pulse Resp BP Pulse Ox 98.2 F 61 24 162/61 90 L 08/07/16 03:00 08/07/16 03:00 08/07/16 03:00 08/07/16 03:00 08/07/16 03:00 General: Present: No Apparent Distress HEENT: Present: PERRL, Normocephaly Neck: Present: Supple Neck, Midline Trachea, No JVD/HJR, No Masses, Bruit ( Bilateral) Cardiac: Present: Reg Rate and Rhythm, Systolic Murmur Lungs: Present: Clear Ascult./Percussion, No Wheeze, Rales, Rhonchi. Absent: Oxygen Neuro: Present: Grossly Intact. Absent: Numbness, Tingling, Weakness, Resting Tremor, Essential Tremor Abdomen: Present: Soft, Active Bowel Sounds, No Masses, No Pulsations/Bruits. Absent: Ascites, Tender, Firm Skin: Present: Clear. Absent: Rash, Suspicious Lesions Musculoskeletal: Present: Normal Range of Motion Extremities: Present: No Clubbing, No Cyanosis, Normal Upper Extr. Pulses (3+ bilateral), Normal Lower Extr. Pulses (3+ bilaterally), Edema (Trace pretibial edema right lower extremity), Capillary Refill (Normal) Result/EKG - Labs CBC & BMP: 08/08/16 04:41 08/08/16 04:41 Lab Results: I have reviewed the past 24 hour labs Labs: Laboratory Results - last 24 hr 08/07/16 08/07/16 08/08/16 08:30 10:28 04:41 WBC 5.7 RBC 3.91 Hgb 10.8 L Hct 32.5 L MCV 83.1 L MCH 28 MCHC 33.2 RDW 12.8 Plt Count 331 MPV 10.0 Neut % (Auto) 42.1 Lymph % (Auto) 35.1 Wilkes % (Auto) 13.2 H Eos % (Auto) 8.2 Baso % (Auto) 1.2 H Neut # (Auto) 2.4 Lymph # (Auto) 2.0 Wilkes # (Auto) 0.8 Eos # (Auto) 0.5 Baso # (Auto) 0.1 Immature Gran % 0.2 Nucleated RBC % 0.0 Immature Gran # 0.01 Nucleated RBCs # 0.00 Sodium Potassium Chloride Carbon Dioxide Anion Gap BUN Creatinine GFR Calculation BUN/Creatinine Ratio Glucose Calculated Osmolality Calcium Magnesium Total Creatine Kinase 186 CK-MB (CK-2) 3.5 Troponin I 0.096 H D Urine Color Light yellow Urine Appearance Clear Urine pH 5.0 Ur Specific [place] 1.003 Urine Protein Negative Urine Glucose (UA) Negative Urine Ketones Negative Urine Blood Negative Urine Nitrate Negative Urine Bilirubin Negative Urine Urobilinogen < 2.0 H Urine Leukocytes Negative Urine RBC <1 Hyaline Casts 1 Ur Culture Indicated? Not indicated 08/08/16 04:41 WBC RBC Hgb Hct MCV MCH MCHC RDW Plt Count MPV Neut % (Auto) Lymph % (Auto) Wil[place] % (Auto) Eos % (Auto) Baso % (Auto) Neut # (Auto) Lymph # (Auto) [place] # (Auto) Eos # (Auto) Baso # (Auto) Immature Gran % Nucleated RBC % Immature Gran # Nucleated RBCs # Sodium 135 L Potassium 4.1 Chloride 94 L Carbon Dioxide 31 Anion Gap 14.1 BUN 31 H Creatinine 1.40 H GFR Calculation 38 BUN/Creatinine Ratio 22.00 H Glucose 102 Calculated Osmolality 276.1 Calcium 8.3 L Magnesium 2.7 H Total Creatine Kinase CK-MB (CK-2) Troponin I Urine Color Urine Appearance Urine pH Ur Specific [place] Urine Protein Urine Glucose (UA) Urine Ketones Urine Blood Urine Nitrate Urine Bilirubin Urine Urobilinogen Urine Leukocytes Urine RBC Hyaline Casts Ur Culture Indicated? - Diagnostic Findings Procedure: Chest x-ray: image reviewed by me, report reviewed by me - EKG EKG results: interpreted by me, no acute changes EKG shows: sinus rhythm IMontana Michael, MD, personally performed the services described in this documentation, ascribed by Nahed Esteves RN in my presence, and it is both accurate and complete 109 .
[2016-08-08] MEDS: clonazePAM 0.5 MG TABLET PO SCH (20:11)
--- NOTE | 2016-08-09 08:14 | Family Practice Progress Note ---
Family Practice - PN: Subj Interval history: Patient states that she feels better. Still having some fullness and epigastric region. I had planned to do a GI consult yesterday but patient stated that she felt like it was her heart. She has had a recent cardiac catheterization and saw Dr. Boyle yesterday. He has been agreed that it is not cardiac etiology and agrees to need GI eval. Will order an EGD this a.m. If scope is normal will consider discharge later today. Her physical exam is otherwise stable Exam (Progress Note) - Constitutional Vitals: Period Temp Pulse Resp BP Sys/[place] Pulse Ox Last 24 Hr 97.6 F-98.5 F 45-57 14-22 102-158/43-66 94-99 Results - Labs CBC & BMP: 08/08/16 04:41 08/08/16 04:41 Assessment and Plan (1) Chest pain unknown etiology Status: Acute Assessment and plan: Symptoms are more consistent with chest wall pain versus GI etiology. She had a recent cardiac catheterization was unremarkable. Patient still concerned about a cardiac etiology. Will have cardiology eval and then obtain additional studies as needed Current Visit: No (2) Dyspnea on exertion Status: Chronic Assessment and plan: Patient states she has had chronic dyspnea with exertion. Current Visit: No (3) Chronic low back pain Status: Chronic Assessment and plan: Chronic treated pain clinic Current Visit: No (4) Hypertension Status: Chronic Assessment and plan: Stable on present medication Current Visit: No
[2016-08-09] MEDS ORDERED: PROPOFOL 200 MG/20 ML VIAL IV ONE (09:00)
[2016-08-09] MEDS ORDERED: ESMOLOL 100 MG/10 ML VIAL IV ONE (09:00)
[2016-08-09] MEDS ORDERED: LIDOCAINE 1% 5 ML VIAL ONE (09:00)
[2016-08-09] MEDS: FUROSEMIDE 40 MG/4 ML VIAL IV SCH (09:40)
--- NOTE | 2016-08-09 09:55 | Gastrointestinal Consult Note ---
<Naina Miramontes - Last Filed: 08/09/16 09:48> Assessment and Plan (1) Atypical chest pain Status: Acute Assessment and plan: 08/09-Sudden onset of burning chest pain radiating across chest, no other associated symptoms. Hx of GERD in past. No prior endoscopy. longterm daily NSAID use. Plan for EGD to further evaluate. Plan and addendum to follow by Dr Riley. Current Visit: Yes History of Present Illness Chief complaint: Atypical chest pain History of present illness: Ms. Whatley is a 76 year old female who was admitted to the hospital with onset of chest pain. Pt states that she was in her usual state of health until Monday morning around 2 am when she had a sudden onset of chest pain. She states the pain was a burning sensation that spread across her chest. She states prior to this she had been up and out late at a [employer] and returned home around 130am. She states that she did not have any alcohol at the [employer] that night but she does smoke. She states the pain was severe in nature and did not alleviate with any known factors. She states she had no other associated symptoms with this. She presented to the ER for further evaluation at that time. She recently had an episode of chest pain and underwent heart catherization at that time with no findings of CAD. On admission, she had mild elevations of her troponin and BNP. Cardiology has evaluated patient and does not feel this is of cardiac origin. Pt states she has a history of GERD and takes OTC Prilosec when needed for this. She states that she has some dysphagia to dry solids but denies this with liquids or pills. She denies history of PUD in the past. States that she does take Mobic daily and has done so for years. Denies any melena or hematochezia. Denies any recent weight loss. States she has never had upper endoscopy and her last colonoscopy was 10 years ago and was told to return in 5 years for repeat scope in which she did not do. Home Medications Medication Instructions Recorded Confirmed Type Aspirin [Aspirin EC] 81 mg PO DAILY 05/29/16 08/07/16 History Carvedilol [Coreg] 12.5 mg PO BID 05/29/16 08/07/16 History Estrogens(Conj) Tab [Premarin Tab] 0.625 mg PO DAILY 05/29/16 08/07/16 History Gabapentin Cap/Tab [Neurontin 300 mg PO TID 05/29/16 08/07/16 History Cap/Tab] Irbesartan 300 mg PO DAILY 05/29/16 08/07/16 History Levothyroxine Sodium 150 mcg PO DAILY 05/29/16 08/07/16 History Meloxicam 7.5 mg PO DAILY 05/29/16 08/07/16 History Morphine ER Tab [Ms Contin] 30 mg PO BID 05/29/16 08/07/16 History Oxycodone HCl/Acetaminophen 1 each PO BID PRN 05/29/16 08/07/16 History [Percocet 7.5-325 mg Tablet] cloNIDine HCl [Clonidine HCl] 0.3 mg PO BEDTIME 05/29/16 08/07/16 History cloNIDine TAB [Catapres Tab] 0.2 mg PO DAILY 05/29/16 08/07/16 History clonazePAM TAB [KlonoPIN] 0.5 mg PO BEDTIME 05/29/16 08/07/16 History amLODIPine [Norvasc] 5 mg PO DAILY #30 tablet 05/31/16 08/07/16 Rx hydroCHLOROthiazide 12.5 mg PO DAILY #30 capsule 05/31/16 08/07/16 Rx [Hydrochlorothiazide] Allergies Allergy/AdvReac Type Severity Reaction Status Date / Time No Known Allergies Allergy Unverified 05/28/16 22:21 Medical,Surgical,& Family Hx - Medical History Cardio: History of: CHF (DX PRESENTLY), Hypertension No history of: Aneurysm, Cardiac Dysrhythmia, Cerebrovascular Disease, [place], Pacemaker, PVD, Valvular Heart Disease, Cardiovascular Problems Psychological: History of: Anxiety Disorders, Depression Neurology: No history of: Dementia, Seizures, TIA HEENT: History of: Eye Problem (READING GLASSES), Glaucoma, HEENT Problems ( SINUS (COUGH,RUNNY NOSE)) No history of: Ear Problem, Dental Problems, Oral Cancer Endocrine: History of: Thyroid Disorder No history of: Adrenal Disease, Diabetes Mellitus (IDDM), Diabetes Mellitus ( NIDDM), Endocrine Cancer Respiratory: History of: Respiratory Problems (SOB IN MAY AND JULY 2016) No history of: Asthma, Bronchitis, COPD, Intubation, Obstructive Sleep Apnea , Pulmonary Embolism, Pulmonary Hypertension, Pneumonia, Lung Cancer Genitourinary: History of: Recurring Urinary Tract Infections (WHEN WAS YOUNG), Problems (STRESS INCONTINENCE) Gastrointestinal: History of: GERD, GI Problems (HX BURNING IN CHEST AT NIGHT BUT NO DIAGNOISIS GERD) Musculoskeletal: History of: Back/Neck Problems, Herniated Disk, Musculoskeletal Problems (ARTHRITIS) Other: No history of: Cancer - Surgical History Cardiac Surgeries: Sugical HX of: Cardiac Catheterization (MAY 2016 DR VELAZQUEZ) Patient Denies: Internal Defibrillator Thoracic Surgeries: Patient denies;: Kidney (Renal Surgery), Lithotripsy, Nephrectomy, Organ Transplant, Lobectomy Neurologic Surgeries: Patient denies: Neurologic Surgery HEENT Surgeries: Surgical HX of: Thyroid Surgery Patient denies: Eye Surgery, Tonsilectomy & Adenoidectomy Abdominal Surgeries: Surgical HX of: Abdominal Surgery, Appendectomy, Colonoscopy, EGD Patient denies: Cholecystectomy, Gastric Bypass Surgery, Hernia Repair Reproductive Surgeries: Surgical HX of;: Gynecologic Surgery, Hysterectomy Patient denies;: Cystoscopy, Genitourinary Surgery Orthopedic Surgeries: Surgical HX of;: Orthopedic Surgery (HERNIATED DISC), Spinal Surgery (NECK) - Family History Family History: Reports;: Family Anesthesia Reaction (SISTER (TROUBLE WAKING UP) ), Family Hypertension (BRO,SIS), Family Stroke (DAD) Denies;: Family Cancer, Family Diabetes, Family Heart Disease, Family Hematology, Family Psychiatric Problems, Additional Family History - Social History Smoking Status: Never smoker Frequency of Alcohol Use: None Type of Drug Use: None 12 point system: reviewed and no additional remarkable complaints except as stated - Constitutional Constitutional: Present: as per HPI - EENT Eyes: Present: as per HPI Ears: Present: as per HPI Nose, mouth and throat: Present: as per HPI, dysphagia - Cardiovascular Cardiovascular: Present: as per HPI, chest pain at rest - Respiratory Respiratory: Present: as per HPI - Gastrointestinal Gastrointestinal: Present: as per HPI, dysphagia, heartburn - Genitourinary Genitourinary: Present: as per HPI - Musculoskeletal Musculoskeletal: Present: as per HPI - Neurological Neurological: Present: as per HPI - Psychiatric Psychiatric: Present: as per HPI - Endocrine Endocrine: Present: as per HPI - Hematologic/Lymphatic Hematologic/Lymphatic: Present: as per HPI Exam - Constitutional Vitals: Period Temp Pulse Resp BP Sys/[place] Pulse Ox Last 24 Hr 97.6 F-98.5 F 45-57 14-22 102-158/43-66 94-99 General appearance: normal weight, no acute distress - Head Head exam: Present: normal inspection, normocephalic - Eye Eye exam: Present: other (lids and conjunctiva unremarakble). Absent: scleral icterus - ENT ENT exam: Present: normal exam, normal oropharynx - Neck Neck exam: Present: normal inspection - Respiratory Respiratory exam: Present: clear to auscultation bilaterally. Absent: rales, rhonchi, wheezes - Cardiovascular Cardiovascular exam: Present: regular rate and rhythm. Absent: diastolic murmur , JVD, systolic murmur - GI/Abdominal GI/Abdominal exam: Present: normal bowel sounds, soft. Absent: ascites, distended, mass, organomegaly, tenderness - Extremities Exam Extremities exam: Present: normal inspection, full ROM - Back Exam Back exam: Present: normal inspection - Neurological Exam Neurological exam: Present: alert, oriented X3 - Psychiatric Psychiatric exam: Present: normal affect, normal mood - Skin Skin exam: Present: normal color, warm, dry Results - Labs CBC & BMP: 08/08/16 04:41 08/08/16 04:41 Lab Results: I have reviewed the past 24 hour labs <Lio Riley - Last Filed: 08/09/16 13:15> History of Present Illness History of present illness: Ms. Whatley is a 76 year old female Exam - Constitutional Vitals: Period Temp Pulse Resp BP Sys/[place] Pulse Ox Last 24 Hr 97.4 F-98.4 F 45-64 13-22 102-191/43-68 94-99 Results - Labs CBC & BMP: 08/08/16 04:41 08/08/16 04:41
[2016-08-09] MEDS: hydroCHLOROthiazide 12.5 MG CAPSULE PO SCH (09:59)
[2016-08-09] MEDS: cloNIDine 0.1 MG TABLET PO SCH (09:59)
[2016-08-09] MEDS: IRBESARTAN 150 MG TABLET PO SCH (09:59)
[2016-08-09] MEDS: DOCUSATE SODIUM 100 MG CAPSULE PO SCH (09:59)
[2016-08-09] MEDS: CARVEDILOL 12.5 MG TABLET PO SCH (09:59)
[2016-08-09] MEDS: ASPIRIN EC 81 MG TABLET PO SCH (09:59)
[2016-08-09] MEDS: PANTOPRAZOLE 40 MG TABLET PO SCH (10:00)
[2016-08-09] MEDS: MORPHINE ER 30 MG TABLET PO SCH (10:00)
[2016-08-09] MEDS: MELOXICAM 7.5 MG TABLET PO SCH (10:00)
[2016-08-09] MEDS: GABAPENTIN 300 MG CAPSULE PO SCH ×2 (10:00→16:15)
[2016-08-09] MEDS: amLODIPine 5 MG TABLET PO SCH (10:00)
[2016-08-09] MEDS: ESTROGENS (CONJ) 0.625 MG TABLET PO SCH (10:00)
[2016-08-09] MEDS: LEVOTHYROXINE 150 MCG TABLET PO SCH (10:00)
--- NOTE | 2016-08-09 13:22 | History and Physical Update ---
History and Physical Update - History and Physical H&P was reviewed, the patient examined and there: are no changes in the patients condition since last H&P was completed. - Physical Exam Mental Status: alert and oriented Heart: regular rate and rhythm Lung: clear to auscultation Abdomen: within normal limits Vitals: within normal limits
--- NOTE | 2016-08-09 13:24 | Operative Note ---
Date of procedure: 08/09/16 Pre-op diagnosis: Esophageal dysphagia, atypical chest pain Procedure: Procedure: Esophagogastroduodenoscopy with bougie dilation esophagus Brief clinical abstract: 76-year-old female is admitted with chest pain which appears to have been noncardiac with negative cardiology workup. She has a history of GERD symptoms over the last year or so and complains of solid food dysphagia. Indication for procedure: Dysphagia, atypical chest pain Endoscopic findings:[After informed consent was obtained, the patient was placed in the left lateral decubitus position. The gastroscope was inserted in the upper esophagus under direct vision with no resistance encountered. Esophageal mucosa appeared normal down to the squamocolumnar junction. There was a mildly obstructive fibrous appearing stricture at that level consistent with reflux etiology. A small hiatal hernia was present just distal to this. The endoscope was advanced in the stomach which was carefully examined including retroflexed view of the cardia and fundus with no other abnormality seen. The pyloric channel, duodenal bulb, second and third portion of the duodenum appeared normal. The endoscope was removed and Best dilator size 52 Faroese inserted in the upper esophagus and advanced beyond the level of the GE junction with mild resistance encountered. No blood was noted on the dilator afterwards and she had no chest pain. She appeared to tolerate the procedure well. Impression: #1 distal esophageal stricture secondary to GERD-status post bougie dilation #2 small hiatal hernia Recommendations: Continue daily PPI therapy. Redilate as needed for dysphagia symptoms. Anesthesia: MAC Surgeon / Physician: Lio Riley Estimated blood loss: none Specimens: none sent Condition: stable Disposition: post procedure unit Results - Labs CBC & BMP: 08/08/16 04:41 08/08/16 04:41 Discharge Plan - Discharge Medications No Action Carvedilol [Coreg] 12.5 mg PO BID Meloxicam 7.5 mg PO DAILY Gabapentin Cap/Tab [Neurontin Cap/Tab] 300 mg PO TID clonazePAM TAB [KlonoPIN] 0.5 mg PO BEDTIME cloNIDine TAB [Catapres Tab] 0.2 mg PO DAILY Estrogens(Conj) Tab [Premarin Tab] 0.625 mg PO DAILY Morphine ER Tab [Ms Contin] 30 mg PO BID cloNIDine HCl [Clonidine HCl] 0.3 mg PO BEDTIME Irbesartan 300 mg PO DAILY Oxycodone HCl/Acetaminophen [Percocet 7.5-325 mg Tablet] 1 each PO BID PRN PRN Reason: Pain amLODIPine [Norvasc] 5 mg PO DAILY #30 tablet hydroCHLOROthiazide [Hydrochlorothiazide] 12.5 mg PO DAILY #30 capsule Levothyroxine Sodium 150 mcg PO DAILY Aspirin [Aspirin EC] 81 mg PO DAILY - Follow Up or Referral - Forms/Instructions
--- NOTE | 2016-08-09 13:38 | Anesthesia Post-Op ---
Anesthesia Post OP - Post Ansesthetic Evaluation Patient seen in post op: Yes Resp: within normal limits CV: within normal limits Mental: within normal limits Temp: within normal limits Gcth-Su-Epxjogrza: within normal limits Nausea and Vomiting: within normal limits Pain: within normal limits
[2016-08-09 16:17] VITALS: BP 170/73
--- NOTE | 2016-08-09 16:27 | Cardiology Progress Note ---
I, Nahed Esteves RN, am scribing for, and in the presence of, Ralph Boyle MD 16:26. Assessment and Plan - Time spent with patient Time spent with patient: Greater than 30 minutes (1) Chest pain Status: Acute Assessment and plan: It appears that the patient chest pain symptoms are gastroesophageal reflux related. She has been started on appropriate therapy. I do not think any additional cardiac workup or treatment is required at this time. I am going to drop off of her case. If I can be of further assistance please let us know. Current Visit: Yes (2) GERD (gastroesophageal reflux disease) Status: Acute Assessment and plan: Treatment initiated by gastroenterology. Current Visit: Yes (3) Dyspnea on exertion Status: Chronic Assessment and plan: This is a chronic issue. It has not recently worsened in severity. Current Visit: No (4) Hypertension Status: Chronic Assessment and plan: Overall, fairly well-controlled. Current Visit: No (5) Hypothyroidism Status: Acute Assessment and plan: Thyroid supplement has been continued Current Visit: Yes (6) Dyslipidemia Status: Chronic Assessment and plan: Patient has not been previously started on statin therapy due to mild elevation of LFTs without clear etiology. 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 TUTTLE SUMMARY: Ms. Whatley is a 76 year old white female with risk factors significant for: age, hypertension, dyslipidemia, and previously known history of CAD. Past medical history includes hypothyroidism, GERD, and fibromyalgia. Patient has had previous cardiac workup per Dr. Tuttle with cardiac catheterization in May 2016 for exertional chest pain and progressive dyspnea on exertion with woods zone troponin. Cardiac cath with no significant obstructive or fixed lesions, and normal LV function with ejection fraction greater than 55%, and mild aortic stenosis. Echocardiogram with normal LV function, mild to moderate TR, RVSP 41 mmHg. She was last evaluated by Dr. Tuttle in clinic on June 09, and her exertional dyspnea was stable, she was not experiencing chest pain, and she had no orthopnea, PND, palpitation, or significant lower extremity edema. Patient was admitted on August 07 with atypical chest pain, had trivial troponin 0.096, and cardiac workup has been benign. July UPDATE: Ms. Whatley is sleeping soundly without distress noted this morning. She rouses, and she is appropriate. No chest pain, shortness of breath, or anginal complaint. She does report some epigastric discomfort. Afebrile, systolic BP 140-160 mmHg. Labs reviewed. H&H is stable. Sodium 135. Potassium is 4.1. Gastroenterology workup reveals gastroesophageal reflux with stricture which has been treated. From a cardiac standpoint, the patient is doing well. Current Medications Acetaminophen (Tylenol Tab) 650 mg PO Q6H PRN PRN Reason: Fever > 100.4 or Headache Amlodipine Besylate (Norvasc) 5 mg PO DAILY [facility] Last Admin: 08/08/16 09:10 Dose: 5 mg Aspirin () 81 mg PO DAILY [facility] Last Admin: 08/08/16 09:09 Dose: 81 mg Bisacodyl (Dulcolax Tab) 10 mg PO DAILY PRN PRN Reason: Constipation Carvedilol (Coreg) 12.5 mg PO BID [facility] Last Admin: 08/08/16 20:11 Dose: 12.5 mg Clonazepam (Klonopin) 0.5 mg PO BEDTIME [facility] Last Admin: 08/08/16 20:11 Dose: 0.5 mg Clonidine HCl (Catapres Tab) 0.3 mg PO BEDTIME [facility] Last Admin: 08/08/16 20:10 Dose: 0.3 mg Clonidine HCl (Catapres Tab) 0.2 mg PO DAILY [facility] Last Admin: 08/08/16 09:10 Dose: 0.2 mg Docusate Sodium (Colace Cap) 100 mg PO BID [facility] Last Admin: 08/08/16 20:11 Dose: 100 mg Estrogens Conjugated (Premarin Tab) 0.625 mg PO DAILY [facility] Last Admin: 08/08/16 09:11 Dose: 0.625 mg Furosemide (Lasix Inj) 40 mg IV BID [facility] Last Admin: 08/08/16 20:11 Dose: 40 mg Gabapentin (Neurontin Cap/Tab) 300 mg PO TID [facility] Last Admin: 08/08/16 20:11 Dose: 300 mg Hydrochlorothiazide () 12.5 mg PO DAILY [facility] Last Admin: 08/08/16 09:11 Dose: 12.5 mg Ibuprofen (Motrin Tab) 600 mg PO Q6H PRN PRN Reason: Fever > 100.4 or Headache Irbesartan (Avapro) 300 mg PO DAILY [facility] Last Admin: 08/08/16 09:10 Dose: 300 mg Levothyroxine Sodium (Synthroid Tab) 150 mcg PO DAILY [facility] Last Admin: 08/08/16 09:10 Dose: 150 mcg Meloxicam (Mobic) 7.5 mg PO DAILY [facility] Last Admin: 08/08/16 09:10 Dose: 7.5 mg Morphine Sulfate (Ms Contin) 30 mg PO BID [facility] Last Admin: 08/08/16 20:11 Dose: 30 mg Ondansetron HCl (Zofran Inj) 4 mg IV Q6H PRN PRN Reason: Nausea/Vomiting Pantoprazole Sodium (Protonix Tab) 40 mg PO DAILY [facility] Last Admin: 08/08/16 09:11 Dose: 40 mg Exam (Progress Note) - Constitutional Vitals: Period Temp Pulse Resp BP Sys/[place] Pulse Ox Last 24 Hr 97.6 F-98.5 F 45-57 14-22 102-158/43-66 94-99 Exam: General: Present: No Apparent Distress HEENT: Present: PERRL, Normocephaly Neck: Present: Supple Neck, Midline Trachea, No JVD/HJR, No Masses, Bruit ( Bilateral) Cardiac: Present: Reg Rate and Rhythm, Systolic Murmur Lungs: Present: Clear Ascult./Percussion, No Wheeze, Rales, Rhonchi. Absent: Oxygen Neuro: Present: Grossly Intact. Absent: Numbness, Tingling, Weakness, Resting Tremor, Essential Tremor Abdomen: Present: Soft, Active Bowel Sounds, No Masses, No Pulsations/Bruits. Absent: Ascites, Tender, Firm Skin: Present: Clear. Absent: Rash, Suspicious Lesions Musculoskeletal: Present: Normal Range of Motion Extremities: Present: No Clubbing, No Cyanosis, Normal Upper Extr. Pulses (3+ bilateral), Normal Lower Extr. Pulses (3+ bilaterally), Edema (Trace pretibial edema right lower extremity), Capillary Refill (Normal) Result/EKG - Labs CBC & BMP: 08/08/16 04:41 08/08/16 04:41 Lab Results: I have reviewed the past 24 hour labs - EKG EKG results: interpreted by me, no acute changes EKG shows: sinus rhythm I, Ralph Boyle MD, personally performed the services described in this documentation, ascribed by Nahed Esteves RN in my presence, and it is both accurate and complete 626 .
--- NOTE | 2016-08-09 17:33 | Discharge Summary ---
Hospital Course - Hospital Course Hospital Course: Patient is a 76-year-old white female who was admitted to the emergency room with onset of substernal type of chest pain that began in the early a.m. of admission. The pain was not relieved with peja-pyn-bunrxbi antacids and other meds. Patient was very concerned that it was cardiac related and presented to the emergency room. In view of history patient was admitted for further evaluation and therapy HOSPITAL COURSE - the patient was admitted hospital lab and x-ray studies obtained. Cardiac isoenzymes and EKGs were stable. Patient was seen in consultation for Dr. 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 It was felt that her pain was noncardiac in nature. In view of this patient was seen by Dr. Riley and an EGD was performed. Patient was found to have a distal esophageal stricture. The stricture was dilated and patient tolerated procedure well. Patient's symptoms had resolved at time of discharge is doing well. No other abnormal findings were noted. We'll discharge to home care and arrange follow-up to the office. We'll continue present medications. Will have patient call or return to the emergency room if condition worsens and if problems develop Diagnosis - Discharge Diagnosis (1) esophageal stricture Status: Acute (2) Chest pain unknown etiology Status: Acute (3) Dyspnea on exertion Status: Chronic (4) Chronic low back pain Status: Chronic (5) Hypertension Status: Chronic Discharge Plan - Discharge Data Disposition: Disch To Home/Self Care Condition at Discharge: Stable Discharge Diet: advance to your usual diet Activity: resume usual activities as tolerated Hygiene: no restrictions Weight Bearing at Discharge: full weight bearing Driving: no restrictions Contact your physician if you experience:: fever over 101, Nausea/Vomiting, Shortness of breath - Discharge Medications New Pantoprazole Tab [Protonix Tab] 40 mg PO DAILY #30 tablet Continue Carvedilol [Coreg] 12.5 mg PO BID Meloxicam 7.5 mg PO DAILY Gabapentin Cap/Tab [Neurontin Cap/Tab] 300 mg PO TID clonazePAM TAB [KlonoPIN] 0.5 mg PO BEDTIME cloNIDine TAB [Catapres Tab] 0.2 mg PO DAILY Estrogens(Conj) Tab [Premarin Tab] 0.625 mg PO DAILY Morphine ER Tab [Ms Contin] 30 mg PO BID cloNIDine HCl [Clonidine HCl] 0.3 mg PO BEDTIME Irbesartan 300 mg PO DAILY Oxycodone HCl/Acetaminophen [Percocet 7.5-325 mg Tablet] 1 each PO BID PRN PRN Reason: Pain amLODIPine [Norvasc] 5 mg PO DAILY #30 tablet hydroCHLOROthiazide [Hydrochlorothiazide] 12.5 mg PO DAILY #30 capsule Levothyroxine Sodium 150 mcg PO DAILY Aspirin [Aspirin EC] 81 mg PO DAILY - Follow Up or Referral Follow Up: Piyush Ardon DO [Physician] - 2 Weeks - Forms/Instructions Exam - Constitutional Vitals: Period Temp Pulse Resp BP Sys/[place] Pulse Ox Last 24 Hr 97.4 F-98.4 F 53-69 13-22 140-191/50-73 94-99 General appearance: no acute distress - Head Head exam: Present: normal inspection - Eye Pupils: Present: CHALINO - ENT ENT exam: Present: normal exam - Neck Neck exam: Present: normal inspection - Respiratory Respiratory exam: Present: clear to auscultation bilaterally - Cardiovascular Cardiovascular exam: Present: regular rate and rhythm - GI/Abdominal GI/Abdominal exam: Present: normal bowel sounds, soft - Extremities Exam Extremities exam: Present: normal inspection - Back Exam Back exam: Present: normal inspection - Neurological Exam Neurological exam: Present: alert - Psychiatric Psychiatric exam: Present: normal affect - Skin Skin exam: Present: normal color Discharge Results Procedures and tests throughout hospitalization: Pending Orders 08/07/16 04:29 Blood Culture Stat 08/10/16 04:00 Basic Metabolic Panel IN AM Comp Blood Count Auto Diff IN AM Labs on day of discharge: Preliminary micro results at discharge 08/07/16 04:29 Blood Culture - Preliminary Blood No growth at 1 day 08/07/16 04:29 Blood Culture - Preliminary Blood No growth at 1 day DS: Provider Date of admission: 08/07/16 04:18 Primary care physician: . No PCP Attending physician on admission: Piyush Ardon DO Consults: 08/07/16 04:18 Consult to Case Mgmt/Social Srvs [CONS] Routine Reason for Case Mgmt/Social Srvs: Discharge Planning 08/07/16 12:04 Consult to Physician [CONS] Routine Comment: Consulting Provider: Cardiology - [facility] When should Consulting Provider be notified: In am Person Notified: maxwell Date Notified: 08/08/16 Time Notified: 07:50 08/09/16 08:03 Consult to Physician [CONS] Routine Comment: EGD THIS A.MAdela Consulting Provider: Lio Riley Person Notified: lizzeth Date Notified: 08/09/16 Time Notified: 08:10 Discharging clinician: Piyush Ardon DO
== END 2016-08-09 18:58 | disposition home or self-care (01) | DRG 392 ==
LOC: EDBD → EDUNIT# → N.ED 02:57 → N.EDINP 04:18 → N.2E 04:40
PROVIDERS: ADMIT Family Medicine; ATTEND Family Medicine

== ENCOUNTER 2016-09-14 15:00 | Inpatient (IN) ==
[~2016-09-14 15:00] MED LIST: HEPARIN/NACL 0.9% 2 UNITS/ML 1,000 ML IV ONE; LIDOCAINE 1% 20 ML VIAL ONE; MIDAZOLAM 2 MG/2 ML VIAL ONE; fentaNYL 100 MCG/2 ML VIAL ONE
[2016-09-14] MEDS ORDERED: ZALEPLON 5 MG CAPSULE PO PRN (15:04)
[2016-09-14] MEDS ORDERED: diphenhydrAMINE CAP 25 MG CAPSULE PO PRN (15:04)
[2016-09-14] MEDS ORDERED: ACETAMINOPHEN 325 MG TABLET PO PRN (15:04)
--- NOTE | 2016-09-14 15:23 | Cardiac Catheterization ---
Date of Procedure:: 09/14/16 Pre-op Diagnosis: ST Elevation and flash pulmonary edema Post-op diagnosis: other (Poorly controlled hypertension and flash pulmonary edema secondary to dystolic dysfunction) Procedure: Procedures: 1. Left heart catheterization resting hemodynamics 2. Selective left and right coronary angiography 3. Selective left and right renal angiography Roberts 4. Right femoral iliac angiography 5. Closure right femoral arteriotomy with Angio-Seal closure device After consent was taken from the patient. Taken to the catheterization lab for left heart catheterization via the femoral artery. Time out was taken and recorded. 1% lidocaine was infiltrated in the skin and subcutaneous tissue overlying the right femoral artery. Modified Seldinger technique and an 18- gauge Cook needle was used for access to the right femoral artery. An 0.35 J- wire was advanced through the needle into the central aorta under fluoroscopy. A small skin was made and a 6 [place] sheath was placed over the wire. The sheath was aspirated and flushed. A JL46 was advanced over the wires in the left main coronary artery was selectively engaged. Multiple orthogonal views of the left system were obtained. The catheter was then exchanged over the wire. The sheath was aspirated and flushed. A JR4 catheter was advanced over the wire into the central aorta. The right coronary was selectively engaged and orthogonal views of the right coronary artery were obtained. The catheter was then exchanged over the wire, the sheath was aspirated and flushed. At this time an angled pigtail catheter was advanced across the aortic valve into the ventricle. Pullback measurements were performed. After I reviewed the films I felt given her third presentation after flash pulmonary edema and severely uncontrolled hypertension that I should check her renal arteries. At this time the sheath was aspirated and flushed the J-tube R4 catheter was advanced back into the ventral aorta and the left than the right renal arteries were cannulated and angiogram performed. The page makeup system operator reviewed the films. The sheath was aspirated and flushed and a right femoral and iliac angiography was performed. The access site was amenable for closure and the area was reprepped with ChloraPrep and draped with sterile towels. The Angio-Seal closure device was used in standard technique. There was no hematoma and distal pulses were good. Diagnostic fluoroscopy time 3 minutes total contrast exposure 88 mGy and total contrast exposure 50 cc of Visipaque FINDINGS: LV: 121/26 LVEDP: 28 Ao: 119/68 EF: Not assessed LM: Angiographically normal LAD: Angiographically normal LCx: Angiographically normal, nondominant RCA: Angiographically normal, dominant Left renal artery: There is mild ostial stenosis (less than 10%) Right renal artery: There is moderate ostial stenosis from 50-70%. RFA/BISI: Angiographically normal Assessment: 1. Uncontrolled hypertension 2. Elevated end-diastolic pressure suggesting diastolic heart failure and pulmonary edema 3. Angiographically normal right dominant epicardial coronary arteries 4. Mild to moderate renal vascular disease as described above PLAN: 1. Multiple monitor in the hospital with diuresis 2. Consult primary care physician to assist with care 3. Follow-up with Dr. Tuttle a discharge. He was present for the procedure and I discussed the films with him. Implants: Angioseal closure device Anesthesia: moderate conscious sedation Surgeon / Physician: Rosa Dorado Casing Wringer Operator: none Estimated blood loss: none Specimens: none sent Condition: stable Disposition: floor - Medications / Follow-up
[2016-09-14 15:32] LABS: Basophils # 0.1 10*3/uL (0.0-0.2); Basophils % 0.9 % (0.0-0.8); Eosinophils # 0.2 10*3/uL (0.0-0.87); Eosinophils % 3.1 % (0.00-10.9); Hematocrit 34.5 VOL% (35.7-47.0); Hemoglobin 11.4 GM/DL (12.0-16.0); Immature Granulocytes % 0.6 %; Immature Granulocytes Absolute 0.04 #; Lymphocytes # 1.2 10*3/uL (1.4-4.0); Lymphocytes % 17.6 % (21.3-54.2); Mean Corpuscular Hemoglobin 29 PG (27-34); Mean Corpuscular Volume 87.6 FL (87-102); Monocytes # 0.4 10*3/uL (0.11-0.8); Monocytes % 6.3 % (1.7-12.7); Neutrophils # 4.7 10*3/uL (1.4-7.4); Neutrophils % 71.5 % (38.7-73.9); Platelet Count 485 T/CUMM (130-400); Red Blood Count 3.94 MC/CUMM (3.8-5.5); Red Cell Distribution Width 13.8 % (9.3-17.3); White Blood Count 6.6 T/CUMM (4-12)
[2016-09-14 15:46] LABS: Calcium 8.4 MG/DL (8.5-10.1); Osmolality,Calculated 266.8 MOS/KG (273-304); Potassium 5.1 MMOL/L (3.5-5.1)
--- NOTE | 2016-09-14 15:51 | Cardiology History & Physical ---
Assessment and Plan - Time spent with patient Time spent with patient: Less than 30 minutes (1) Pulmonary edema Status: Acute Qualifiers: Chronicity: acute Qualified Code(s): J81.0 - Acute pulmonary edema (2) Diastolic heart failure Status: Acute Qualifiers: Heart failure chronicity: acute on chronic Qualified Code(s): I50.33 - Acute on chronic diastolic (congestive) heart failure (3) CHF (congestive heart failure) Status: Chronic Qualifiers: Congestive heart failure type: diastolic (4) GERD (gastroesophageal reflux disease) Status: Chronic Qualifiers: Esophagitis presence: without esophagitis Qualified Code(s): K21.9 - Gastro -esophageal reflux disease without esophagitis (5) Hypothyroidism Status: Chronic (6) Respiratory distress Status: Acute (7) Dyslipidemia Status: Chronic (8) Dyspnea on exertion Status: Chronic (9) Hypertension Status: Chronic (10) Overweight Status: Chronic (11) Suspected sleep apnea Status: Chronic History of Present Illness Chief complaint: I cannot breathe History of present illness: Ms. Whatley is a 76 year old female patient of Dr. Alejandro Velazquez who presents by EMS with change in her ECG. The Sand Analyst was activated from the field because of ST elevation. I met the patient andshe had a significant change in her EKG with bundle branch block similar to a left bundle branch block with a severely uncontrolled blood pressure of 198/110 in the ambulance bay she was not having chest pain at that time but complained of chest tightness and by exam had pulmonary edema. I also quickly had reviewed her films from 05/30/2016 that showed basically angiographically normal coronaries with mild luminal irregularities. Although I did not feel this represented ST elevation there is sick certainly had been a change from her previous tracings I discussed with the patient briefly in the hallway in the emergency room about proceeding with left heart catheterization selective coronary angiography and possible percutaneous coronary mention. She agreed. She understood risk benefits and options that she is just had a heart cath approximately 100 days ago. Home Medications Medication Instructions Recorded Confirmed Type Aspirin [Aspirin EC] 81 mg PO DAILY 05/29/16 08/07/16 History Carvedilol [Coreg] 12.5 mg PO BID 05/29/16 08/07/16 History Estrogens(Conj) Tab [Premarin Tab] 0.625 mg PO DAILY 05/29/16 08/07/16 History Gabapentin Cap/Tab [Neurontin 300 mg PO TID 05/29/16 08/07/16 History Cap/Tab] Irbesartan 300 mg PO DAILY 05/29/16 08/07/16 History Levothyroxine Sodium 150 mcg PO DAILY 05/29/16 08/07/16 History Meloxicam 7.5 mg PO DAILY 05/29/16 08/07/16 History Morphine ER Tab [Ms Contin] 30 mg PO BID 05/29/16 08/07/16 History Oxycodone HCl/Acetaminophen 1 each PO BID PRN 05/29/16 08/07/16 History [Percocet 7.5-325 mg Tablet] cloNIDine HCl [Clonidine HCl] 0.3 mg PO BEDTIME 05/29/16 08/07/16 History cloNIDine TAB [Catapres Tab] 0.2 mg PO DAILY 05/29/16 08/07/16 History clonazePAM TAB [KlonoPIN] 0.5 mg PO BEDTIME 05/29/16 08/07/16 History amLODIPine [Norvasc] 5 mg PO DAILY #30 tablet 05/31/16 08/07/16 Rx hydroCHLOROthiazide 12.5 mg PO DAILY #30 capsule 05/31/16 08/07/16 Rx [Hydrochlorothiazide] Pantoprazole Tab [Protonix Tab] 40 mg PO DAILY #30 tablet 08/09/16 Rx Allergies Allergy/AdvReac Type Severity Reaction Status Date / Time No Known Allergies Allergy Unverified 05/28/16 22:21 - Constitutional Constitutional: Present: lethargy, malaise, stops breathing during sleep. Absent: anorexia, chills, increased appetite, weight loss - EENT Eyes: Present: blurry vision, diplopia Nose, mouth and throat: Absent: dysphagia, nasal congestion - Cardiovascular Cardiovascular: Present: dyspnea, dyspnea on exertion. Absent: chest pain at rest, chest pain with activity - Respiratory Respiratory: Present: cough, dyspnea, dyspnea on exertion, pain on inspiration - Gastrointestinal Gastrointestinal: Absent: abdominal pain, dyspepsia - Genitourinary Genitourinary: Absent: abnormal vaginal bleeding, difficulty urinating - Musculoskeletal Musculoskeletal: Present: muscle weakness, myalgias - Neurological Neurological: Absent: abnormal gait, disequilibrium, focal weakness - Psychiatric Psychiatric: Present: anxiety, depression. Absent: confusion - Endocrine Endocrine: Absent: cold intolerance, heat intolerance - Hematologic/Lymphatic Hematologic/Lymphatic: Absent: easy bleeding, easy bruising Medical,Surgical,& Family Hx - Medical History Cardio: History of: CHF (DX PRESENTLY), Hypertension No history of: Aneurysm, Cardiac Dysrhythmia, Cerebrovascular Disease, [place], Pacemaker, PVD, Valvular Heart Disease, Cardiovascular Problems Psychological: History of: Anxiety Disorders, Depression Neurology: No history of: Dementia, Seizures, TIA HEENT: History of: Eye Problem (READING GLASSES), Glaucoma, HEENT Problems ( SINUS (COUGH,RUNNY NOSE)) No history of: Ear Problem, Dental Problems, Oral Cancer Endocrine: History of: Thyroid Disorder No history of: Adrenal Disease, Diabetes Mellitus (IDDM), Diabetes Mellitus ( NIDDM), Endocrine Cancer Respiratory: History of: Respiratory Problems (SOB IN MAY AND JULY 2016) No history of: Asthma, Bronchitis, COPD, Intubation, Obstructive Sleep Apnea , Pulmonary Embolism, Pulmonary Hypertension, Pneumonia, Lung Cancer Genitourinary: History of: Recurring Urinary Tract Infections (WHEN WAS YOUNG), Problems (STRESS INCONTINENCE) Gastrointestinal: History of: GERD, GI Problems (HX BURNING IN CHEST AT NIGHT BUT NO DIAGNOISIS GERD) Musculoskeletal: History of: Back/Neck Problems, Herniated Disk, Musculoskeletal Problems (ARTHRITIS) Other: No history of: Cancer - Surgical History Cardiac Surgeries: Sugical HX of: Cardiac Catheterization (MAY 2016 DR VELAZQUEZ) Patient Denies: Internal Defibrillator Thoracic Surgeries: Patient denies;: Kidney (Renal Surgery), Lithotripsy, Nephrectomy, Organ Transplant, Lobectomy Neurologic Surgeries: Patient denies: Neurologic Surgery HEENT Surgeries: Surgical HX of: Thyroid Surgery Patient denies: Eye Surgery, Tonsilectomy & Adenoidectomy Abdominal Surgeries: Surgical HX of: Abdominal Surgery, Appendectomy, Colonoscopy, EGD Patient denies: Cholecystectomy, Gastric Bypass Surgery, Hernia Repair Reproductive Surgeries: Surgical HX of;: Gynecologic Surgery, Hysterectomy Patient denies;: Cystoscopy, Genitourinary Surgery Orthopedic Surgeries: Surgical HX of;: Orthopedic Surgery (HERNIATED DISC), Spinal Surgery (NECK) - Family History Family History: Reports;: Family Anesthesia Reaction (SISTER (TROUBLE WAKING UP) ), Family Hypertension (BRO,SIS), Family Stroke (DAD) Denies;: Family Cancer, Family Diabetes, Family Heart Disease, Family Psychiatric Problems - Social History Frequency of Alcohol Use: None Type of Drug Use: None Marital Status: Lives With:: Alone Functional capacity: independent ambulation Cardiology Physical Exam - Constitutional General appearance: over weight - Head Head exam: Present: normal inspection - Eye Eye exam: Present: EOMI Pupils: Present: CHALINO - Respiratory Respiratory exam: Present: accessory muscle use, rales - Cardiovascular Cardiovascular exam: Present: irregular rhythm (tones obscured by respiratory noise) - GI/Abdominal GI/Abdominal exam: Present: normal bowel sounds - Extremities Exam Extremities exam: Present: normal inspection - Back Exam Back exam: Present: normal inspection - Neurological Exam Neurological exam: Present: alert, oriented X3 - Psychiatric Psychiatric exam: Present: anxious, depressed - Skin Skin exam: Present: normal color, warm Result/EKG - Labs CBC & BMP: 09/14/16 15:20 09/14/16 15:20 Labs: Laboratory Results - last 24 hr 09/14/16 09/14/16 09/14/16 15:20 15:20 15:20 WBC 6.6 RBC 3.94 Hgb 11.4 L Hct 34.5 L MCV 87.6 MCH 29 MCHC 33.0 RDW 13.8 Plt Count 485 H MPV 10.0 Neut % (Auto) 71.5 Lymph % (Auto) 17.6 L [place] % (Auto) 6.3 Eos % (Auto) 3.1 Baso % (Auto) 0.9 H Neut # (Auto) 4.7 Lymph # (Auto) 1.2 L [place] # (Auto) 0.4 Eos # (Auto) 0.2 Baso # (Auto) 0.1 Immature Gran % 0.6 Nucleated RBC % 0.0 Immature Gran # 0.04 Nucleated RBCs # 0.00 Sodium 130 L Potassium 5.1 Chloride 96 L Carbon Dioxide 23 Anion Gap 16.1 H BUN 26 H Creatinine 1.60 H GFR Calculation 0 BUN/Creatinine Ratio 16.00 Glucose 132 H Calculated Osmolality 266.8 L Calcium 8.4 L Magnesium 3.1 H - EKG EKG results: interpreted by me (IVCD/LBBB, sinus rhythm)
--- NOTE | 2016-09-14 16:49 | XRay Report ---
XR chest 1V portable Indication: Shortness of breath Comparison: Chest x-ray 08/07/2016. Technique: Portable AP chest was performed. Findings: There is been interval partial clearing of airspace opacification most involving the lower right chest. There may be minimal airspace disease in the left lung base. Upper lungs remain clear. Chest is otherwise stable. Impression: 1. Interval partial clearing of airspace disease most noticeable in the right lower chest suggests improving infection and/or edema. 09/14/2016 4:46 PM PROCEDURE INTERPRETED AT [facility] DEPARTMENT OF RADIOLOGY Final Report Signed by: Dr. Clarence Espinoza
[2016-09-14] MEDS: oxyCODONE/ACETAMINOPHEN 5-325 MG TABLET PO PRN (18:02)
[2016-09-14] MEDS: DOCUSATE SODIUM 100 MG CAPSULE PO SCH (20:17)
[2016-09-14] MEDS: MORPHINE ER 30 MG TABLET PO SCH (20:17)
[2016-09-14] MEDS: GABAPENTIN 300 MG CAPSULE PO SCH (20:18)
[2016-09-14] MEDS: ENOXAPARIN 40 MG/0.4 ML SYRINGE SUBCUT SCH (20:18)
[2016-09-14] MEDS ORDERED: cloNIDine 0.1 MG TABLET PO SCH (21:00)
[2016-09-14] MEDS ORDERED: CARVEDILOL 12.5 MG TABLET PO SCH (21:00)
[2016-09-15 05:49] LABS: Basophils % 0.5 % (0.0-0.8); Eosinophils # 0.1 10*3/uL (0.0-0.87); Eosinophils % 1.1 % (0.00-10.9); Hematocrit 33.4 VOL% (35.7-47.0); Hemoglobin 11.1 GM/DL (12.0-16.0); Immature Granulocytes % 0.4 %; Immature Granulocytes Absolute 0.03 #; Lymphocytes # 1.6 10*3/uL (1.4-4.0); Lymphocytes % 19.1 % (21.3-54.2); Mean Corpuscular HGB Conc 33.2 GM/DL (32-36); Mean Corpuscular Hemoglobin 28 PG (27-34); Mean Corpuscular Volume 84.8 FL (87-102); Mean Platelet Volume 10.8 FL (9.6-12.0); Monocytes # 0.8 10*3/uL (0.11-0.8); Monocytes % 9.4 % (1.7-12.7); Neutrophils # 5.9 10*3/uL (1.4-7.4); Neutrophils % 69.5 % (38.7-73.9); Platelet Count 402 T/CUMM (130-400); Red Blood Count 3.94 MC/CUMM (3.8-5.5); Red Cell Distribution Width 13.9 % (9.3-17.3); White Blood Count 8.5 T/CUMM (4-12)
[2016-09-15 06:13] LABS: Calcium 8.8 MG/DL (8.5-10.1); Osmolality,Calculated 267.5 MOS/KG (273-304); Potassium 5.2 MMOL/L (3.5-5.1)
[2016-09-15] MEDS: oxyCODONE/ACETAMINOPHEN 5-325 MG TABLET PO PRN (06:43)
[2016-09-15] MEDS: LEVOTHYROXINE 150 MCG TABLET PO SCH (06:43)
--- NOTE | 2016-09-15 06:53 | EKG Report ---
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
[2016-09-15] MEDS: cloNIDine 0.1 MG TABLET PO PRN ×2 (07:28→11:36)
--- NOTE | 2016-09-15 08:36 | XRay Report ---
History: Shortness of breath Date: 09/15/2016 Study: Chest x-ray PA and lateral Comparison exam: 09/14/2016 The cardiac silhouette is not enlarged. The mediastinal contours are unremarkable. The pulmonary vasculature is not engorged. There is improved patchy and hazy airspace disease in the right lower lung compared to the previous study. There is no interval worsening. There is trace pleural effusion in the fissures. Osseous structures are unchanged. Impression: Improving right lower lung edema/infiltrate PROCEDURE INTERPRETED AT [facility] DEPARTMENT OF RADIOLOGY Final Report Signed by: Dr. Kendy Riley
[2016-09-15] MEDS ORDERED: PANTOPRAZOLE 40 MG TABLET PO SCH (09:00)
[2016-09-15] MEDS ORDERED: cloNIDine 0.1 MG TABLET PO SCH ×2 (09:00→21:00)
--- NOTE | 2016-09-15 09:04 | Consultation ---
Assessment and Plan (1) Pulmonary edema Status: Acute Assessment and plan: 09/15/2016: Patient's weight is down a little bit more continuing give her medications for this. We will continue to monitor INR daily with Current Visit: Yes Qualifiers: Chronicity: acute Qualified Code(s): J81.0 - Acute pulmonary edema (2) Hypotension Status: Acute Assessment and plan: 09/15/2016: Yesterday her blood pressure was actually slightly low so we held her medications. It did come up last night and actually this morning is a little elevated so we will restart her clonidine at 0.2 twice daily. I will leave to cardiology whether we will continue her Coreg. Her heart rate was around 62 at this time Current Visit: Yes History of Present Illness - Consult Narrative Reason for consult: Hypertension management History of present illness: Ms. Whatley is a 76 year old female Primary patient of Dr. Ardon, came to the hospital with ST elevation in flash pulmonary edema. She had poorly controlled hypertension with diastolic dysfunction history. Was seen by cardiology yesterday and it felt like a cath procedure was necessary due to the elevation of the enzymes. It was noted that she did have a elevated end-diastolic pressure of 28. Main vessels were angiographically normal. At this time she is doing some better her weight is down by about 3 pounds today from yesterday. She is alert and oriented and in no acute distress. A chest x-ray was done this morning which revealed less pulmonary edema relative to yesterday. On exam I do not appreciate any gallops or rub from the heart she does have some bibasal rales only. Lab: Hemoglobin 11.1 hematocrit 33.4, sodium 132, potassium 5.2, creatinine 1.20 (down 0.1 0.60) CC: Rosa Dorado, DO - Home Medications and Allergies Home Medications: Home Medications Medication Instructions Recorded Confirmed Type Aspirin [Aspirin EC] 81 mg PO DAILY 05/29/16 08/07/16 History Carvedilol [Coreg] 12.5 mg PO BID 05/29/16 08/07/16 History Estrogens(Conj) Tab [Premarin Tab] 0.625 mg PO DAILY 05/29/16 08/07/16 History Gabapentin Cap/Tab [Neurontin 300 mg PO TID 05/29/16 08/07/16 History Cap/Tab] Irbesartan 300 mg PO DAILY 05/29/16 08/07/16 History Levothyroxine Sodium 150 mcg PO DAILY 05/29/16 08/07/16 History Meloxicam 7.5 mg PO DAILY 05/29/16 08/07/16 History Morphine ER Tab [Ms Contin] 30 mg PO BID 05/29/16 08/07/16 History Oxycodone HCl/Acetaminophen 1 each PO BID PRN 05/29/16 08/07/16 History [Percocet 7.5-325 mg Tablet] cloNIDine HCl [Clonidine HCl] 0.3 mg PO BEDTIME 05/29/16 08/07/16 History cloNIDine TAB [Catapres Tab] 0.2 mg PO DAILY 05/29/16 08/07/16 History clonazePAM TAB [KlonoPIN] 0.5 mg PO BEDTIME 05/29/16 08/07/16 History amLODIPine [Norvasc] 5 mg PO DAILY #30 tablet 05/31/16 08/07/16 Rx hydroCHLOROthiazide 12.5 mg PO DAILY #30 capsule 05/31/16 08/07/16 Rx [Hydrochlorothiazide] Pantoprazole Tab [Protonix Tab] 40 mg PO DAILY #30 tablet 08/09/16 Rx Allergies/Adverse Reactions: Allergies Allergy/AdvReac Type Severity Reaction Status Date / Time No Known Allergies Allergy Unverified 05/28/16 22:21 12 point system: reviewed and no additional remarkable complaints except as stated (Except as mentioned in H&P and past medical history) Medical,Surgical,& Family Hx - Medical History Cardio: History of: CHF (DX PRESENTLY), Hypertension No history of: Aneurysm, Cardiac Dysrhythmia, Cerebrovascular Disease, [place], Pacemaker, PVD, Valvular Heart Disease, Cardiovascular Problems Psychological: History of: Anxiety Disorders, Depression Neurology: No history of: Dementia, Seizures, TIA HEENT: History of: Eye Problem (READING GLASSES), Glaucoma, HEENT Problems ( SINUS (COUGH,RUNNY NOSE)) No history of: Ear Problem, Dental Problems, Oral Cancer Endocrine: History of: Thyroid Disorder No history of: Adrenal Disease, Diabetes Mellitus (IDDM), Diabetes Mellitus ( NIDDM), Endocrine Cancer Respiratory: History of: Respiratory Problems (SOB IN MAY AND JULY 2016) No history of: Asthma, Bronchitis, COPD, Intubation, Obstructive Sleep Apnea , Pulmonary Embolism, Pulmonary Hypertension, Pneumonia, Lung Cancer Genitourinary: History of: Recurring Urinary Tract Infections (WHEN WAS YOUNG), Problems (STRESS INCONTINENCE) Gastrointestinal: History of: Diverticulitis/ Diverticulosis, GERD, Hemorrhoids , GI Problems (HX BURNING IN CHEST AT NIGHT BUT NO DIAGNOISIS GERD) Musculoskeletal: History of: Back/Neck Problems, Herniated Disk, Musculoskeletal Problems (ARTHRITIS) Hematology: History of: Anemia Reproductive: History of: Ovarian Cysts Other: No history of: Cancer - Surgical History Cardiac Surgeries: Sugical HX of: Cardiac Catheterization (MAY 2016 DR VELAZQUEZ) Patient Denies: Internal Defibrillator Thoracic Surgeries: Patient denies;: Kidney (Renal Surgery), Lithotripsy, Nephrectomy, Organ Transplant, Lobectomy Neurologic Surgeries: Patient denies: Neurologic Surgery HEENT Surgeries: Surgical HX of: Thyroid Surgery Patient denies: Eye Surgery, Tonsilectomy & Adenoidectomy Abdominal Surgeries: Surgical HX of: Abdominal Surgery, Appendectomy, Colonoscopy, EGD Patient denies: Cholecystectomy, Gastric Bypass Surgery, Hernia Repair Reproductive Surgeries: Surgical HX of;: Gynecologic Surgery, Hysterectomy Patient denies;: Cystoscopy, Genitourinary Surgery Orthopedic Surgeries: Surgical HX of;: Orthopedic Surgery (HERNIATED DISC), Spinal Surgery (NECK) - Family History Family History: Reports;: Family Anesthesia Reaction (SISTER (TROUBLE WAKING UP) ), Family Hypertension (BRO,SIS), Family Stroke (DAD) Denies;: Family Cancer, Family Diabetes, Family Heart Disease, Family Psychiatric Problems - Social History Smoking Status: Never smoker Frequency of Alcohol Use: None Type of Drug Use: None Exam - Constitutional Vitals: Period Temp Pulse Resp BP Sys/[place] Pulse Ox Last 24 Hr 97.6 F-98.7 F 51-140 10-21 87-161/44-97 91-97 Exam: Generally very alert female is in no acute distress at this time. She is concerned about her recent onset of shortness of breath. HEENT neck is supple trachea midline Cardiovascular rate regular no gallop or rub 1 out of 6 systolic ejection murmur. Lungs only a few basal rales Abdomen soft nondistended Extremities no clubbing cyanosis or edema Neurologically fully intact no lateralizing signs motor sensory depth Results - Labs CBC & BMP: 09/15/16 04:22 09/15/16 04:22 Specialty Discharge - Follow Up or Referrals
[2016-09-15] MEDS: IRBESARTAN 150 MG TABLET PO SCH (09:14)
[2016-09-15] MEDS: ASPIRIN EC 81 MG TABLET PO SCH (09:15)
[2016-09-15] MEDS: GABAPENTIN 300 MG CAPSULE PO SCH ×3 (09:15→22:18)
[2016-09-15] MEDS: MORPHINE ER 30 MG TABLET PO SCH ×2 (09:15→22:30)
[2016-09-15] MEDS: amLODIPine 5 MG TABLET PO SCH (09:15)
[2016-09-15] MEDS: PANTOPRAZOLE 40 MG TABLET PO SCH (09:22)
[2016-09-15] MEDS: DOCUSATE SODIUM 100 MG CAPSULE PO SCH ×2 (09:31→22:18)
[2016-09-15] MEDS ORDERED: ONDANSETRON 4 MG/2 ML VIAL IV PRN (09:35)
--- NOTE | 2016-09-15 10:16 | EKG Report ---
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
[2016-09-15 12:07] LABS: Apearance,Urine CLEAR (Clear); Bacteria,Urine Occasional /HPF (Few); Bilirubin,Urine Negative (Negative); Blood, Urine Negative (Negative); Glucose,Urine (UA) Negative (Negative); Ketones,Urine Negative (Negative); Nitrite,Urine Negative (Negative); Protein,Urine Negative; RBC,Urine <1 /HPF (0-4); Squamous Epithelial Cell,Urine Occasional /HPF (0-10); Urine Color Straw (Yellow); Urine Urobilinogen < 2.0 EU/DL (0.2-1.0); WBC,Urine 3 /HPF (0-6)
[2016-09-15] MEDS ORDERED: amLODIPine 5 MG TABLET PO ONE (13:23)
[2016-09-15] MEDS ORDERED: cloNIDine 0.2 MG/24 HR PATCH TRANSDERM SCH (13:30)
[2016-09-15] MEDS ORDERED: CARVEDILOL 6.25 MG TABLET PO SCH (14:51)
--- NOTE | 2016-09-15 14:56 | Cardiology Progress Note ---
Danielito Mock Vanessa RN, am scribing for, and in the presence of, Rosa Ann DO 14 :55. Assessment and Plan - Time spent with patient Time spent with patient: Less than 30 minutes (1) Uncontrolled hypertension Status: Resolved Current Visit: No (2) CHF (congestive heart failure) Status: Chronic Current Visit: No Qualifiers: Congestive heart failure type: diastolic (3) Progressive angina Status: Acute Current Visit: No (4) Dyspnea on exertion Status: Chronic Current Visit: No (5) Overweight Status: Chronic Current Visit: No (6) Suspected sleep apnea Status: Chronic Current Visit: No (7) Chest pain unknown etiology Status: Acute Current Visit: No (8) Hypertension Status: Chronic Current Visit: No (9) Chronic low back pain Status: Chronic Current Visit: No (10) Hypothyroidism Status: Chronic Current Visit: No (11) Dyslipidemia Status: Chronic Current Visit: No (12) Atypical chest pain Status: Acute Current Visit: No (13) GERD (gastroesophageal reflux disease) Status: Chronic Current Visit: No Qualifiers: Esophagitis presence: without esophagitis Qualified Code(s): K21.9 - Gastro -esophageal reflux disease without esophagitis (14) Pulmonary edema Status: Acute Current Visit: Yes Qualifiers: Chronicity: acute Qualified Code(s): J81.0 - Acute pulmonary edema (15) Diastolic heart failure Status: Acute Current Visit: Yes Qualifiers: Heart failure chronicity: acute on chronic Qualified Code(s): I50.33 - Acute on chronic diastolic (congestive) heart failure Cardiology - PN: Subj Interval history: PRIMARY GLUE COOK: DR. ANN SUMMARY: Ms. Whatley, 76 year old WF, with risk factors significant for: age, overweight, hypertension, dyslipidemia, and she has never smoked. Past medical history includes hypothyroidism, congestive heart failure due to diastolic dysfunction ( biatrial enlargement, EF 55% per echo in May 2016), suspected sleep apnea, fibromyalgia, and GERD. Patient presented to [place]'s ED via EMS on the afternoon of September 14 with chest tightness and significant hypertension with BP 198/110. EKG per EMS demonstrated a bundle branch blocck very similiar to a left bundle branch block, and she had pulmonary edema by physical exam. Films from left heart catheterization in May 2016 were quickly reviewed, and patient noted to have overall angiographically normal coronary vessels with mild luminal irregularities. Although it was not felt to be a true STEMI, due to patient's EKG change and clinical presentation, it was elected patient undergo urgent left heart catheterization. Patient was transferred urgently by EMS straight from ER to cardiac cardiac catheterization technician. Cath revealed the following: FINDINGS: LV: 121/26 LVEDP: 28 Ao: 119/68 EF: Not assessed LM: Angiographically normal LAD: Angiographically normal LCx: Angiographically normal, nondominant RCA: Angiographically normal, dominant Left renal artery: There is mild ostial stenosis (less than 10%) Right renal artery: There is moderate ostial stenosis from 50-70%. RFA/BISI: Angiographically normal Assessment: 1. Uncontrolled hypertension 2. Elevated end-diastolic pressure suggesting diastolic heart failure and pulmonary edema 3. Angiographically normal right dominant epicardial coronary arteries 4. Mild to moderate renal vascular disease as described above Dr. Tuttle, patient's primary coke drawer hand, was present in the lab at time of cath. These findings and films were discussed with him. Post cath, patient's symptoms were contributed to poorly controlled hypertension and flash pulmonary edema secondary to diastolic dysfunction. She was housed in the CCU overnight for close observation and diuresis. August: This afternoon, patient was anxious for discharge. I agreed to adjust medications and keep her another night. I made some adjustments to medications I think her problems are very labile blood pressure last blood pressure chart in the computer was extremely high when I arrived at the bedside her blood pressure is 108/58 with a pulse of 54. I think clonidine is her largest issue I will try to transition her to a clonidine patch. We will decrease her beta- jose l as well this can contribute to hypertension. Exam (Progress Note) - Constitutional Vitals: Period Temp Pulse Resp BP Sys/[place] Pulse Ox Last 24 Hr 97.0 F-98.7 F 51-140 10-21 87-209/44-111 91-98 General appearance: normal weight - Head Head exam: Present: normal inspection - Eye Eye exam: Present: EOMI Pupils: Present: [place] - Neck Neck exam: Present: normal inspection - Respiratory Respiratory exam: Present: clear to auscultation bilaterally - Cardiovascular Cardiovascular exam: Present: regular rate and rhythm - GI/Abdominal GI/Abdominal exam: Present: normal bowel sounds - Extremities Exam Extremities exam: Present: normal inspection, other (Cath site looks good) - Back Exam Back exam: Present: normal inspection - Neurological Exam Neurological exam: Present: alert, oriented X3 - Psychiatric Psychiatric exam: Present: anxious, depressed - Skin Skin exam: Present: normal color, warm, dry Result/EKG - Labs CBC & BMP: 09/15/16 04:22 09/15/16 04:22 Labs: Laboratory Results - last 24 hr 09/14/16 09/14/16 09/14/16 15:20 15:20 15:20 WBC 6.6 RBC 3.94 Hgb 11.4 L Hct 34.5 L MCV 87.6 MCH 29 MCHC 33.0 RDW 13.8 Plt Count 485 H MPV 10.0 Neut % (Auto) 71.5 Lymph % (Auto) 17.6 L [place] % (Auto) 6.3 Eos % (Auto) 3.1 Baso % (Auto) 0.9 H Neut # (Auto) 4.7 Lymph # (Auto) 1.2 L [place] # (Auto) 0.4 Eos # (Auto) 0.2 Baso # (Auto) 0.1 Immature Gran % 0.6 Nucleated RBC % 0.0 Immature Gran # 0.04 Nucleated RBCs # 0.00 Sodium 130 L Potassium 5.1 Chloride 96 L Carbon Dioxide 23 Anion Gap 16.1 H BUN 26 H Creatinine 1.60 H GFR Calculation 0 BUN/Creatinine Ratio 16.00 Glucose 132 H Calculated Osmolality 266.8 L Calcium 8.4 L Magnesium 3.1 H Troponin I B-Natriuretic Peptide Urine Color Urine Appearance Urine pH Ur Specific [place] Urine Protein Urine Glucose (UA) Urine Ketones Urine Blood Urine Nitrate Urine Bilirubin Urine Urobilinogen Urine Leukocytes Urine RBC Urine WBC Ur Squamous Epith Cells Urine Bacteria Ur Culture Indicated? 09/14/16 09/14/16 09/14/16 15:20 15:20 18:46 WBC RBC Hgb Hct MCV MCH MCHC RDW Plt Count MPV Neut % (Auto) Lymph % (Auto) [place] % (Auto) Eos % (Auto) Baso % (Auto) Neut # (Auto) Lymph # (Auto) [place] # (Auto) Eos # (Auto) Baso # (Auto) Immature Gran % Nucleated RBC % Immature Gran # Nucleated RBCs # Sodium Potassium Chloride Carbon Dioxide Anion Gap BUN Creatinine GFR Calculation BUN/Creatinine Ratio Glucose Calculated Osmolality Calcium Magnesium Troponin I 0.048 H 0.367 H D B-Natriuretic Peptide 329 H Urine Color Urine Appearance Urine pH Ur Specific [place] Urine Protein Urine Glucose (UA) Urine Ketones Urine Blood Urine Nitrate Urine Bilirubin Urine Urobilinogen Urine Leukocytes Urine RBC Urine WBC Ur Squamous Epith Cells Urine Bacteria Ur Culture Indicated? 09/14/16 09/15/16 09/15/16 21:11 04:22 04:22 WBC 8.5 RBC 3.94 Hgb 11.1 L Hct 33.4 L MCV 84.8 L MCH 28 MCHC 33.2 RDW 13.9 Plt Count 402 H MPV 10.8 Neut % (Auto) 69.5 Lymph % (Auto) 19.1 L [place] % (Auto) 9.4 Eos % (Auto) 1.1 Baso % (Auto) 0.5 Neut # (Auto) 5.9 Lymph # (Auto) 1.6 [place] # (Auto) 0.8 Eos # (Auto) 0.1 Baso # (Auto) 0.0 Immature Gran % 0.4 Nucleated RBC % 0.0 Immature Gran # 0.03 Nucleated RBCs # 0.00 Sodium 132 L Potassium 5.2 H Chloride 97 L Carbon Dioxide 26 Anion Gap 14.2 BUN 25 H Creatinine 1.20 H GFR Calculation 44 BUN/Creatinine Ratio 20.00 Glucose 100 Calculated Osmolality 267.5 L Calcium 8.8 Magnesium Troponin I 0.440 H B-Natriuretic Peptide Urine Color Urine Appearance Urine pH Ur Specific [place] Urine Protein Urine Glucose (UA) Urine Ketones Urine Blood Urine Nitrate Urine Bilirubin Urine Urobilinogen Urine Leukocytes Urine RBC Urine WBC Ur Squamous Epith Cells Urine Bacteria Ur Culture Indicated? 09/15/16 12:09 WBC RBC Hgb Hct MCV MCH MCHC RDW Plt Count MPV Neut % (Auto) Lymph % (Auto) [place] % (Auto) Eos % (Auto) Baso % (Auto) Neut # (Auto) Lymph # (Auto) [place] # (Auto) Eos # (Auto) Baso # (Auto) Immature Gran % Nucleated RBC % Immature Gran # Nucleated RBCs # Sodium Potassium Chloride Carbon Dioxide Anion Gap BUN Creatinine GFR Calculation BUN/Creatinine Ratio Glucose Calculated Osmolality Calcium Magnesium Troponin I B-Natriuretic Peptide Urine Color Straw Urine Appearance Clear Urine pH 7.0 Ur Specific [place] 1.010 Urine Protein Negative Urine Glucose (UA) Negative Urine Ketones Negative Urine Blood Negative Urine Nitrate Negative Urine Bilirubin Negative Urine Urobilinogen < 2.0 H Urine Leukocytes Trace Urine RBC <1 Urine WBC 3 Ur Squamous Epith Cells Occasional Urine Bacteria Occasional Ur Culture Indicated? Not indicated Specialty Discharge - Follow Up or Referrals Follow up with: Alejandro Tuttle MD [Physician] - 1 Week (Follow up appointment with Dr. Tuttle at [facility] with BMP, Mg, CBC, EKG) I, Rosa Ann, DO, personally performed the services described in this documentation, ascribed by Nahed Esteves RN in my presence, and it is both accurate and complete [id number] .
[2016-09-15] MEDS: ENOXAPARIN 40 MG/0.4 ML SYRINGE SUBCUT SCH (22:18)
[2016-09-16] MEDS: oxyCODONE/ACETAMINOPHEN 5-325 MG TABLET PO PRN (00:15)
[2016-09-16] MEDS ORDERED: ALUMINUM/MAGNES/SIMETH MAX STR 30 ML UDCUP PO PRN (01:37)
[2016-09-16] MEDS ORDERED: amLODIPine 10 MG TABLET PO SCH (09:00)
--- NOTE | 2016-09-16 09:21 | Family Practice Progress Note ---
Family Practice - PN: Subj Interval history: pt seen and examined at [facility], PCP Dr. Ardon. Pt admitted for Pulmonary edema, diastolic DHF , with shortness of breath , symptoms improved, Patient mentions the similar episode has been happening intermittently X 3 so far since 3-4 months, Today SOB improved, feeling better since yesterday, no chestpain , headaches or dizziness, no overnight events reported by the nurse. Patient stays alone, Exam (Progress Note) - Constitutional Vitals: Period Temp Pulse Resp BP Sys/[place] Pulse Ox Last 24 Hr 97.2 F-98.6 F 53-88 12-22 116-209/59-111 91-100 Exam: General Examination: GENERAL APPEARANCE: alert and oriented, pleasant, in no acute distress, sitting at the bedside, having breakfast HEENT: normal. EYES: extraocular movement intact (EOMI), conjunctiva clear, normal. mid dilated pupils ( on Mscontin/norcos) NECK/THYROID: neck supple, full range of motion, no cervical lymphadenopathy, no thyromegaly. HEART: regular rate and rhythm, no murmurs, rubs, gallops. LUNGS: clear to auscultation bilaterally,except basal crackles, ABDOMEN: soft, nontender, nondistended, no organomegaly , bowel sounds present. EXTREMITIES: no edema. NEUROLOGIC: alert and oriented, cranial nerves 2-12 grossly intact, Results - Labs CBC & BMP: 09/15/16 04:22 09/15/16 04:22 Lab Results: I have reviewed the past 24 hour labs - Impressions reviewed cath report Assessment and Plan (1) Pulmonary edema Status: Acute Assessment and plan: Improving, continue medications, continue recommendations as per senior technical analyst. 2. Diastolic heart failure, stable on medications 3. Hypertension, improving stable on medication, 4.Chronic back pain, controlled, on MS Contin and norcos. 5.hypothyroidism stable on meds. 6. Discussed options of home health, at the time of discharge Possible discharge today, Current Visit: Yes Qualifiers: Chronicity: acute Qualified Code(s): J81.0 - Acute pulmonary edema (2) Diastolic heart failure Status: Chronic Current Visit: Yes Qualifiers: Heart failure chronicity: acute on chronic Qualified Code(s): I50.33 - Acute on chronic diastolic (congestive) heart failure (3) Chronic low back pain Status: Chronic Current Visit: Yes (4) Dyslipidemia Status: Chronic Current Visit: Yes (5) GERD (gastroesophageal reflux disease) Status: Chronic Current Visit: Yes Qualifiers: Esophagitis presence: without esophagitis Qualified Code(s): K21.9 - Gastro -esophageal reflux disease without esophagitis (6) Hypertension Status: Chronic Current Visit: Yes (7) Hypothyroidism Status: Chronic Current Visit: Yes Specialty Discharge - Follow Up or Referrals Follow up with: Alejandro Tuttle MD [Physician] - 09/29/16 2:10 pm (Follow up appointment with Dr. Tuttle at [facility] clinic with BMP, Mg, CBC, EKG)
[2016-09-16] MEDS: DOCUSATE SODIUM 100 MG CAPSULE PO SCH (10:44)
[2016-09-16] MEDS: amLODIPine 5 MG TABLET PO SCH (10:44)
[2016-09-16] MEDS: GABAPENTIN 300 MG CAPSULE PO SCH ×2 (10:45→15:27)
[2016-09-16] MEDS: ASPIRIN EC 81 MG TABLET PO SCH (10:45)
[2016-09-16] MEDS: IRBESARTAN 150 MG TABLET PO SCH (10:45)
[2016-09-16] MEDS: MORPHINE ER 30 MG TABLET PO SCH (10:45)
[2016-09-16] MEDS: LEVOTHYROXINE 150 MCG TABLET PO SCH (10:46)
[2016-09-16] MEDS: PANTOPRAZOLE 40 MG TABLET PO SCH (10:47)
[2016-09-16 12:14] VITALS: BP 196/88
--- NOTE | 2016-09-16 15:39 | Discharge Summary ---
Thaddeus Mock April, RN, am scribing for, and in the presence of, Rosa Dorado DO 15 :39. Hospital Course - Hospital Course Hospital Course: PRIMARY PATENT ATTORNEY: DR. Tuttle DISCHARGE SUMMARY: Ms. Whatley, 76 year old WF, with risk factors significant for: age, overweight, hypertension, dyslipidemia, and she has never smoked. Past medical history includes hypothyroidism, congestive heart failure due to diastolic dysfunction ( biatrial enlargement, EF 55% per echo in May 2016), suspected sleep apnea, fibromyalgia, and GERD. Patient presented to [place]'s ED via EMS on the afternoon of September 14 with chest tightness and significant hypertension with BP 198/110. EKG per EMS demonstrated a bundle branch blocck very similiar to a left bundle branch block, and she had pulmonary edema by physical exam. Films from left heart catheterization in May 2016 were quickly reviewed, and patient noted to have overall angiographically normal coronary vessels with mild luminal irregularities. Although it was not felt to be a true STEMI, due to patient's EKG change and clinical presentation, it was elected patient undergo urgent left heart catheterization. Patient was transferred urgently by EMS straight from ER to cardiac supervisor labor gang. Cath revealed the following: FINDINGS: LV: 121/26 LVEDP: 28 Ao: 119/68 EF: Not assessed LM: Angiographically normal LAD: Angiographically normal LCx: Angiographically normal, nondominant RCA: Angiographically normal, dominant Left renal artery: There is mild ostial stenosis (less than 10%) Right renal artery: There is moderate ostial stenosis from 50-70%. RFA/BISI: Angiographically normal Assessment: 1. Uncontrolled hypertension 2. Elevated end-diastolic pressure suggesting diastolic heart failure and pulmonary edema 3. Angiographically normal right dominant epicardial coronary arteries 4. Mild to moderate renal vascular disease as described above Dr. Tuttle, patient's primary procurement analyst, was present in the lab at time of cath. These findings and films were discussed with him. Post cath, patient's symptoms were contributed to poorly controlled hypertension and flash pulmonary edema secondary to diastolic dysfunction. She was housed in the CCU overnight for close observation and diuresis. Today Ms. Whatley is seen resting in bed on the telemetry unit. She denies having any chest pain. She continues to have slight dyspnea on exertion, but states this is improved. Right groin is stable without evidence of bleeding or hematoma. Pedal pulses present bilaterally. Her blood pressure medicines have been adjusted and her blood pressure has improved. Her systolic continues to be elevated at times, but her diastolic has been normal throughout the night. Most recent blood pressure 165/72. Patient verbalizes that she would like to be discharged. We will schedule follow-up for her to see Dr. Tuttle in clinic in 2 weeks with labs. Ms. Whatley continues to have somewhat labile blood pressure but it is better with conversion to the clonidine patch [place] lower than the lows are higher. I am concerned that she may have some issues with remembering to take her medicines appropriately. Her blood pressures have done better her cath site looks good and she feels well she has no pulmonary edema by exam this time and she is not short of breath she is clearly much better than upon arrival. - Time spent with patient Time with patient DS: Greater than 30 minutes Diagnosis - Discharge Diagnosis (1) Diastolic heart failure Status: Chronic (2) Progressive angina Status: Resolved (3) Chronic low back pain Status: Chronic (4) Dyslipidemia Status: Chronic (5) Dyspnea on exertion Status: Chronic (6) Hypothyroidism Status: Chronic (7) Uncontrolled hypertension Status: Resolved Specialty Discharge - Follow Up or Referrals Follow up with: Alejandro Tuttle MD [Physician] - 09/29/16 2:10 pm (Follow up appointment with Dr. Tuttle at [facility] with BMP, Mg, CBC, EKG) Discharge Plan - Discharge Data Condition at Discharge: Stable Discharge Diet: heart healthy Activity: other (Post cath expectations) Hygiene: other (Post cath expectations) Weight Bearing at Discharge: other (Post cath expectations) Driving: other (Post cath expectations) Contact your physician if you experience:: fever over 101, Difficulty voiding, Redness or swelling, Nausea/Vomiting, Shortness of breath, Bleeding, pain uncontrolled by pain medications - Discharge Medications New amLODIPine [Norvasc] 5 mg PO DAILY tablet cloNIDine 0.2 MG/24 HR PATCH [Ockyhmnv-IPE-3 Patch] 1 patch TRANSDERM Q7DAY # 4 patch Continue Carvedilol [Coreg] 12.5 mg PO BID Gabapentin Cap/Tab [Neurontin Cap/Tab] 300 mg PO TID clonazePAM TAB [KlonoPIN] 0.5 mg PO BEDTIME Estrogens(Conj) Tab [Premarin Tab] 0.625 mg PO DAILY Morphine ER Tab [Ms Contin] 30 mg PO BID Irbesartan 300 mg PO DAILY Oxycodone HCl/Acetaminophen [Percocet 7.5-325 mg Tablet] 1 each PO BID PRN PRN Reason: Pain hydroCHLOROthiazide [Hydrochlorothiazide] 12.5 mg PO DAILY #30 capsule Levothyroxine Sodium 150 mcg PO DAILY Pantoprazole Tab [Protonix Tab] 40 mg PO DAILY #30 tablet Discontinued cloNIDine TAB [Catapres Tab] 0.2 mg PO DAILY cloNIDine HCl [Clonidine HCl] 0.3 mg PO BEDTIME No Action Aspirin [Aspirin EC] 81 mg PO DAILY - Follow Up or Referral Follow Up: Alejandro Tuttle MD [Physician] - 09/29/16 2:10 pm (Follow up appointment with Dr. Tuttle at [facility] with BMP, Mg, CBC, EKG) - Forms/Instructions Instructions: Coronary Artery Disease (GEN), Left Heart Catheterization (DC), Heart Healthy Diet (GEN) Exam - Constitutional Vitals: Period Temp Pulse Resp BP Sys/[place] Pulse Ox Last 24 Hr 97.2 F-98.6 F 53-88 12-22 116-209/59-111 91-100 General appearance: normal weight, no acute distress - Head Head exam: Absent: abrasion, hematoma - Eye Eye exam: Absent: periorbital swelling, laceration to eyelids - Respiratory Respiratory exam: Present: clear to auscultation bilaterally. Absent: accessory muscle use, chest wall tenderness - Cardiovascular Cardiovascular exam: Present: regular rate and rhythm - GI/Abdominal GI/Abdominal exam: Present: normal bowel sounds, soft. Absent: distended, tenderness - Extremities Exam Extremities exam: Present: other (Cath site looks good, good pedal pulses). Absent: edema - Neurological Exam Neurological exam: Present: alert, oriented X3 - Psychiatric Psychiatric exam: Present: normal affect, normal mood - Skin Skin exam: Present: warm, dry Discharge Results Procedures and tests throughout hospitalization: Pending Orders 09/15/16 10:14 MRSA Surveillence, Inf Control Routine Labs on day of discharge: Labs from last 24 hours 09/15/16 12:09 Urine Color Straw Urine Appearance Clear Urine pH 7.0 Ur Specific [place] 1.010 Urine Protein Negative Urine Glucose (UA) Negative Urine Ketones Negative Urine Blood Negative Urine Nitrate Negative Urine Bilirubin Negative Urine Urobilinogen < 2.0 H Urine Leukocytes Trace Urine RBC <1 Urine WBC 3 Ur Squamous Epith Cells Occasional Urine Bacteria Occasional Ur Culture Indicated? Not indicated - Imaging and Cardiology Cardiology Procedure: report reviewed by me Procedure: Chest x-ray: report reviewed by me DS: Provider Date of admission: 09/14/16 Attending physician on admission: Dr. Rosa Dorado Consults: 09/14/16 15:04 Consult to Cardiac Rehabilitation [CONS] Routine Reason for Cardiac Rehabilitation: Risk Factor Modification 09/14/16 15:11 Consult to Physician [CONS] Routine Comment: Patient known to you Consulting Provider: Piyush Ardon Date Notified: 09/14/16 Time Notified: 16:36 Ave Mock Shea, DO, personally performed the services described in this documentation, ascribed by Joceline Travis RN in my presence, and it is both accurate and complete [id number] .
--- NOTE | 2016-09-19 09:45 | Physician Query Form ---
CLICK EDIT DOCUMENT TO SELECT QUERY ANSWER --> OK --> SIGN No Chamorro RN Clinical Ship'S Captain W) [phone] (f) [phone] [email or web address] PROVIDERS: Make your selection(s) from the choices in EACH section by typing an "x" and enter comments in the comment section. Please use your independent medical judgment in providing your response. This request does not imply that any particular answer is desired or expected. CLINICAL INDICATORS: (Providers should not edit this section) Based on lab results of creatinine on admission of 1.60 with a GFR of 44 and decreased to 1.20. Pt. treated with IV fluids of Normal Saline. Clarify which of the following most accurately represents the patient's renal status: (X ) Acute kidney injury (non-traumatic) ( ) Acute renal failure ( ) Acute renal failure with underlying Chronic Kidney Disease (CKD) - please provide stage below ( ) CKD - please provide stage below ( ) Other, please specify: ( ) Clinically unable to determine Chronic Kidney Disease Stages Source: National Kidney Disease Foundation ( ) Stage I (eGFR > or = 90) ( ) Stage II (eGFR 60 - 89) ( ) Stage III (eGFR 30 - 59) ( ) Stage IV (eGFR 15 - 29) ( ) Stage V (eGFR < 15 or dialysis) COMMENTS: PLEASE ALSO DOCUMENT RESPONSE IN PROGRESS NOTES AND/OR DISCHARGE SUMMARY Use of terms such as suspected, likely, or probable (associated with a specific diagnosis that is being evaluated, monitored, or treated as if it exists) are acceptable and can be restated in the discharge summary if not ruled out. MTDD
== END 2016-09-16 16:39 | disposition home or self-care (01) | DRG 287 ==
LOC: N.CL 15:06 → N.CC 15:55 → N.TELEN 09-15 20:19 → N.CC 09-16 11:20
PROVIDERS: ADMIT Internal Medicine Cardiovascular Disease; ATTEND Internal Medicine Cardiovascular Disease
PROC: CLCCHCL (ICD-10-PCS; 2016-09-14 15:15)

== ENCOUNTER 2018-07-08 19:06 | Inpatient (IN) ==
[2018-07-08 20:11] LABS: Basophils # 0.1 10*3/uL (0.0-0.2); Basophils % 0.7 % (0.0-0.8); Eosinophils # 0.3 10*3/uL (0.0-0.87); Eosinophils % 1.7 % (0.00-10.9); Hematocrit 27.1 VOL% (35.7-47.0); Hemoglobin 9.1 GM/DL (12.0-16.0); Immature Granulocytes % 1.7 %; Immature Granulocytes Absolute 0.25 #; Lymphocytes % 13.2 % (21.3-54.2); Mean Corpuscular HGB Conc 33.6 GM/DL (32-36); Mean Corpuscular Volume 82.6 FL (87-102); Mean Platelet Volume 8.4 FL (9.6-12.0); Monocytes % 10.5 % (1.7-12.7); Neutrophils % 72.2 % (38.7-73.9); Platelet Count 625 T/CUMM (130-400); Red Blood Count 3.28 MC/CUMM (3.8-5.5); Red Cell Distribution Width 14.5 % (9.3-17.3); White Blood Count 14.8 T/CUMM (4-12)
[2018-07-08 20:15] LABS: Apearance,Urine CLEAR (Clear); Bilirubin,Urine Negative (Negative); Blood, Urine Negative (Negative); Glucose,Urine (UA) Negative (Negative); Ketones,Urine Negative (Negative); Nitrite,Urine Negative (Negative); Protein,Urine Negative; RBC,Urine 1 /HPF (0-4); Squamous Epithelial Cell,Urine Occasional /HPF (0-10); Urine Color Yellow (Yellow); Urine Specific Gravity 1.012 (1.001-1.035); Urine Urobilinogen < 2.0 EU/DL (0.2-1.0); WBC,Urine 1 /HPF (0-6)
[2018-07-08 20:31] LABS: Albumin 3.6 G/DL (3.4-5.0); Bilirubin,Total 1.1 MG/DL (0.2-1.0); Calcium 8.3 MG/DL (8.5-10.1); Osmolality,Calculated 236.6 MOS/KG (273-304); Total Protein 6.5 G/DL (6.4-8.3)
[2018-07-08] MEDS ORDERED: ONDANSETRON 4 MG/2 ML VIAL ONE (21:01)
[2018-07-08] MEDS ORDERED: ONDANSETRON 4 MG/2 ML VIAL IV STA (21:01)
[2018-07-08] MEDS ORDERED: MORPHINE 4 MG/1 ML VIAL IV STA (21:01)
[2018-07-08] MEDS ORDERED: MORPHINE 4 MG/1 ML VIAL ONE (21:03)
[2018-07-08] MEDS ORDERED: ONDANSETRON 4 MG/2 ML VIAL IV PRN (21:30)
[2018-07-08] MEDS ORDERED: KETOROLAC 30 MG/1 ML VIAL IV PRN (21:30)
[2018-07-08] MEDS ORDERED: ACETAMINOPHEN 325 MG TABLET PO PRN (21:30)
[2018-07-08] MEDS: SODIUM CHLORIDE 0.9% 1,000 ML IV SCH (23:00)
[2018-07-09 04:03] LABS: Basophils # 0.1 10*3/uL (0.0-0.2); Basophils % 0.6 % (0.0-0.8); Eosinophils # 0.3 10*3/uL (0.0-0.87); Eosinophils % 1.6 % (0.00-10.9); Hemoglobin 10.3 GM/DL (12.0-16.0); Immature Granulocytes Absolute 0.33 #; Lymphocytes # 2.2 10*3/uL (1.4-4.0); Lymphocytes % 13.5 % (21.3-54.2); Mean Corpuscular HGB Conc 34.3 GM/DL (32-36); Mean Corpuscular Volume 82.2 FL (87-102); Mean Platelet Volume 8.7 FL (9.6-12.0); Monocytes % 12.1 % (1.7-12.7); Neutrophils % 70.2 % (38.7-73.9); Platelet Count 751 T/CUMM (130-400); Red Blood Count 3.65 MC/CUMM (3.8-5.5); Red Cell Distribution Width 14.8 % (9.3-17.3); White Blood Count 16.4 T/CUMM (4-12)
[2018-07-09 04:27] LABS: Bilirubin,Total 1.5 MG/DL (0.2-1.0); Calcium 9.4 MG/DL (8.5-10.1); Osmolality,Calculated 242.2 MOS/KG (273-304); Total Protein 7.4 G/DL (6.4-8.3)
[2018-07-09] MEDS ORDERED: ACETAMINOPHEN 325 MG TABLET PO PRN (08:04)
[2018-07-09] MEDS: SODIUM CHLOR 0.9% KCL 20 MEQ 20 MEQ/1,000 ML BAG IV SCH ×3 (08:54→17:24)
[2018-07-09] MEDS: FERROUS SULFATE 325 MG TABLET PO SCH (08:55)
[2018-07-09] MEDS: DOCUSATE SODIUM 100 MG CAPSULE PO SCH ×2 (08:55→21:21)
[2018-07-09] MEDS: buPROPion XL 150 MG TABLET PO SCH (08:55)
[2018-07-09] MEDS: LOSARTAN 50 MG TABLET PO SCH (08:56)
[2018-07-09] MEDS: GABAPENTIN 300 MG CAPSULE PO SCH ×3 (08:56→21:21)
[2018-07-09] MEDS: PANTOPRAZOLE 40 MG TABLET PO SCH (08:57)
[2018-07-09] MEDS: ROSUVASTATIN 10 MG TABLET PO SCH (08:58)
[2018-07-09] MEDS: CARVEDILOL 12.5 MG TABLET PO SCH ×2 (08:58→21:21)
[2018-07-09] MEDS: PARoxetine 20 MG TABLET PO SCH (08:59)
[2018-07-09] MEDS ORDERED: amLODIPine 5 MG TABLET PO SCH (09:00)
[2018-07-09] MEDS: SODIUM CHLORIDE 0.9% 1,000 ML IV SCH (09:03)
[2018-07-10] MEDS: SODIUM CHLOR 0.9% KCL 20 MEQ 20 MEQ/1,000 ML BAG IV SCH ×3 (01:00→19:40)
[2018-07-10 04:57] LABS: Albumin 3.6 G/DL (3.4-5.0); Bilirubin,Total 1.9 MG/DL (0.2-1.0); Calcium 8.9 MG/DL (8.5-10.1); Osmolality,Calculated 251.5 MOS/KG (273-304); Risk Ratio 1.66; Total Protein 6.5 G/DL (6.4-8.3)
[2018-07-10 05:03] LABS: Ferritin 215.8 ng/ml (8-252); Free T4 (Free Thyroxine) 1.02 NG/DL (0.76-1.46)
[2018-07-10 05:11] LABS: Basophils # 0.1 10*3/uL (0.0-0.2); Basophils % 0.7 % (0.0-0.8); Eosinophils # 0.4 10*3/uL (0.0-0.87); Eosinophils % 3.1 % (0.00-10.9); Hematocrit 28.6 VOL% (35.7-47.0); Hemoglobin 9.5 GM/DL (12.0-16.0); Immature Granulocytes % 1.7 %; Immature Granulocytes Absolute 0.19 #; Lymphocytes # 1.4 10*3/uL (1.4-4.0); Mean Corpuscular HGB Conc 33.2 GM/DL (32-36); Mean Corpuscular Volume 85.6 FL (87-102); Mean Platelet Volume 9.3 FL (9.6-12.0); Monocytes % 13.7 % (1.7-12.7); Neutrophils % 68.8 % (38.7-73.9); Platelet Count 633 T/CUMM (130-400); Red Blood Count 3.34 MC/CUMM (3.8-5.5); Red Cell Distribution Width 15.6 % (9.3-17.3); White Blood Count 11.2 T/CUMM (4-12)
[2018-07-10] MEDS: LEVOTHYROXINE 137 MCG TABLET PO SCH (06:45)
[2018-07-10] MEDS: ROSUVASTATIN 10 MG TABLET PO SCH (09:09)
[2018-07-10] MEDS: amLODIPine 10 MG TABLET PO SCH (09:10)
[2018-07-10] MEDS: buPROPion XL 150 MG TABLET PO SCH (09:10)
[2018-07-10] MEDS: SPIRONOLACTONE 25 MG TABLET PO SCH (09:11)
[2018-07-10] MEDS: PARoxetine 20 MG TABLET PO SCH (09:11)
[2018-07-10] MEDS: DOCUSATE SODIUM 100 MG CAPSULE PO SCH ×2 (09:11→21:10)
[2018-07-10] MEDS: GABAPENTIN 300 MG CAPSULE PO SCH ×3 (09:11→21:10)
[2018-07-10] MEDS: CARVEDILOL 12.5 MG TABLET PO SCH ×2 (09:12→21:10)
[2018-07-10] MEDS: PANTOPRAZOLE 40 MG TABLET PO SCH (09:12)
[2018-07-10] MEDS: LOSARTAN 50 MG TABLET PO SCH (09:12)
[2018-07-10] MEDS: FERROUS SULFATE 325 MG TABLET PO SCH (09:13)
[2018-07-11] MEDS: SODIUM CHLOR 0.9% KCL 20 MEQ 20 MEQ/1,000 ML BAG IV SCH ×5 (05:00→23:40)
[2018-07-11 05:32] LABS: Basophils # 0.1 10*3/uL (0.0-0.2); Basophils % 1.1 % (0.0-0.8); Eosinophils # 0.4 10*3/uL (0.0-0.87); Eosinophils % 4.4 % (0.00-10.9); Hematocrit 29.7 VOL% (35.7-47.0); Hemoglobin 9.5 GM/DL (12.0-16.0); Immature Granulocytes % 1.4 %; Immature Granulocytes Absolute 0.14 #; Lymphocytes # 1.3 10*3/uL (1.4-4.0); Lymphocytes % 12.4 % (21.3-54.2); Mean Corpuscular Volume 86.3 FL (87-102); Mean Platelet Volume 8.8 FL (9.6-12.0); Monocytes % 15.9 % (1.7-12.7); Neutrophils % 64.8 % (38.7-73.9); Platelet Count 638 T/CUMM (130-400); Red Blood Count 3.44 MC/CUMM (3.8-5.5); Red Cell Distribution Width 16.4 % (9.3-17.3); White Blood Count 10.1 T/CUMM (4-12)
[2018-07-11 06:08] LABS: Albumin 3.6 G/DL (3.4-5.0); Bilirubin,Total 1.4 MG/DL (0.2-1.0); Calcium 8.5 MG/DL (8.5-10.1); Osmolality,Calculated 258.9 MOS/KG (273-304); Total Protein 6.5 G/DL (6.4-8.3)
[2018-07-11 06:12] LABS: Anisocytosis 1+; Eosinophils 3 % (0-10); Lymphocytes 12 % (20-55); Macrocytosis 1+; Platelet Estimate Increased; Segmented Neutrophils 68 % (50-85); Total Cells Counted 100
[2018-07-11] MEDS: LEVOTHYROXINE 137 MCG TABLET PO SCH (06:32)
[2018-07-11 09:36] LABS: Hepatitis B Core IgM Quant < 0.05 Index; Hepatitis B Surface Ag Quant < 0.10 Index; Hepatitis B Surface Ag Result Negative (Negative); Hepatitis C Virus Ab Quant 0.36 Index; Hepatitis C Virus Ab Result Negative (Negative)
[2018-07-11] MEDS: ROSUVASTATIN 10 MG TABLET PO SCH (09:40)
[2018-07-11] MEDS: amLODIPine 10 MG TABLET PO SCH (09:40)
[2018-07-11] MEDS: PANTOPRAZOLE 40 MG TABLET PO SCH (09:40)
[2018-07-11] MEDS: buPROPion XL 150 MG TABLET PO SCH (09:40)
[2018-07-11] MEDS: LOSARTAN 50 MG TABLET PO SCH (09:41)
[2018-07-11] MEDS: FERROUS SULFATE 325 MG TABLET PO SCH (09:42)
[2018-07-11] MEDS: DOCUSATE SODIUM 100 MG CAPSULE PO SCH ×2 (09:42→21:30)
[2018-07-11] MEDS: CARVEDILOL 12.5 MG TABLET PO SCH ×2 (09:42→21:30)
[2018-07-11] MEDS: SPIRONOLACTONE 25 MG TABLET PO SCH (09:42)
[2018-07-11] MEDS: GABAPENTIN 300 MG CAPSULE PO SCH ×3 (09:42→21:30)
[2018-07-11] MEDS: PARoxetine 20 MG TABLET PO SCH (09:42)
[2018-07-12] MEDS: SODIUM CHLOR 0.9% KCL 20 MEQ 20 MEQ/1,000 ML BAG IV SCH ×3 (03:48→10:30)
[2018-07-12 05:04] LABS: Basophils # 0.1 10*3/uL (0.0-0.2); Basophils % 1.3 % (0.0-0.8); Eosinophils # 0.4 10*3/uL (0.0-0.87); Eosinophils % 3.7 % (0.00-10.9); Hematocrit 29.6 VOL% (35.7-47.0); Hemoglobin 9.5 GM/DL (12.0-16.0); Immature Granulocytes % 1.4 %; Immature Granulocytes Absolute 0.13 #; Lymphocytes # 1.5 10*3/uL (1.4-4.0); Lymphocytes % 15.6 % (21.3-54.2); Mean Corpuscular HGB Conc 32.1 GM/DL (32-36); Mean Corpuscular Volume 88.6 FL (87-102); Mean Platelet Volume 8.9 FL (9.6-12.0); Monocytes % 15.7 % (1.7-12.7); Neutrophils % 62.3 % (38.7-73.9); Platelet Count 619 T/CUMM (130-400); Red Blood Count 3.34 MC/CUMM (3.8-5.5); White Blood Count 9.4 T/CUMM (4-12)
[2018-07-12 05:30] LABS: Albumin 3.7 G/DL (3.4-5.0); Bilirubin,Total 0.9 MG/DL (0.2-1.0); Calcium 8.6 MG/DL (8.5-10.1); Osmolality,Calculated 258.9 MOS/KG (273-304); Total Protein 6.8 G/DL (6.4-8.3)
[2018-07-12 05:41] LABS: Eosinophils 5 % (0-10); Hypochromasia 1+; Lymphocytes 17 % (20-55); Ovalocytes Slight; Platelet Estimate Adequate; Segmented Neutrophils 66 % (50-85); Total Cells Counted 100
[2018-07-12] MEDS: LEVOTHYROXINE 137 MCG TABLET PO SCH (06:45)
[2018-07-12] MEDS: ROSUVASTATIN 10 MG TABLET PO SCH (09:25)
[2018-07-12] MEDS: LOSARTAN 50 MG TABLET PO SCH (09:25)
[2018-07-12] MEDS: PANTOPRAZOLE 40 MG TABLET PO SCH (09:25)
[2018-07-12] MEDS: DOCUSATE SODIUM 100 MG CAPSULE PO SCH (09:25)
[2018-07-12] MEDS: buPROPion XL 150 MG TABLET PO SCH (09:26)
[2018-07-12] MEDS: PARoxetine 20 MG TABLET PO SCH (09:26)
[2018-07-12] MEDS: CARVEDILOL 12.5 MG TABLET PO SCH (09:26)
[2018-07-12] MEDS: FERROUS SULFATE 325 MG TABLET PO SCH (09:26)
[2018-07-12] MEDS: SPIRONOLACTONE 25 MG TABLET PO SCH (09:26)
[2018-07-12] MEDS: amLODIPine 10 MG TABLET PO SCH (09:26)
[2018-07-12] MEDS: GABAPENTIN 300 MG CAPSULE PO SCH (09:26)
[2018-07-12 11:39] VITALS: BP 150/78
== END 2018-07-12 12:30 | disposition swing bed (61) | DRG 641 ==
LOC: EDBD → EDUNIT# → N.EDINP 19:06 → N.ED 19:06 → N.TELEN 22:29
PROVIDERS: ADMIT Family Medicine; ATTEND Family Medicine

== ENCOUNTER 2018-07-31 07:43 | Observation (INO) ==
[2018-07-31 09:32] LABS: Basophils # 0.1 10*3/uL (0.0-0.2); Basophils % 0.5 % (0.0-0.8); Eosinophils # 0.2 10*3/uL (0.0-0.87); Eosinophils % 1.3 % (0.00-10.9); Hemoglobin 9.4 GM/DL (12.0-16.0); Immature Granulocytes % 1.6 %; Immature Granulocytes Absolute 0.27 #; Lymphocytes # 1.5 10*3/uL (1.4-4.0); Lymphocytes % 8.8 % (21.3-54.2); Mean Corpuscular HGB Conc 32.4 GM/DL (32-36); Mean Corpuscular Volume 87.3 FL (87-102); Mean Platelet Volume 9.2 FL (9.6-12.0); Neutrophils % 79.8 % (38.7-73.9); Platelet Count 576 T/CUMM (130-400); Red Blood Count 3.32 MC/CUMM (3.8-5.5); Red Cell Distribution Width 16.1 % (9.3-17.3); White Blood Count 16.9 T/CUMM (4-12)
[2018-07-31 09:34] LABS: Apearance,Urine CLEAR (Clear); Bilirubin,Urine Negative (Negative); Blood, Urine Negative (Negative); Glucose,Urine (UA) Negative (Negative); Hyaline Casts,Urine 1 /LPF (0-3); Ketones,Urine Negative (Negative); Nitrite,Urine Negative (Negative); Protein,Urine Negative; RBC,Urine 1 /HPF (0-4); Urine Color Yellow (Yellow); Urine Urobilinogen < 2.0 EU/DL (0.2-1.0)
[2018-07-31] MEDS ORDERED: ONDANSETRON 4 MG/2 ML VIAL IV PRN (09:47)
[2018-07-31 09:53] LABS: Calcium 8.9 MG/DL (8.5-10.1); Osmolality,Calculated 264.1 MOS/KG (273-304)
[2018-07-31] MEDS: SODIUM CHLORIDE 0.9% 1,000 ML IV SCH (11:30)
[2018-07-31] MEDS: ACETAMINOPHEN 325 MG TABLET PO PRN (13:27)
[2018-07-31] MEDS: oxyCODONE/ACETAMINOPHEN 5-325 MG TABLET PO PRN (14:24)
[2018-07-31] MEDS: GABAPENTIN 300 MG CAPSULE PO SCH ×2 (16:01→20:30)
[2018-07-31] MEDS: COLLAGENASE OINT 30 GM TUBE TOP SCH (17:30)
[2018-07-31] MEDS: MORPHINE ER 30 MG TABLET PO SCH (20:30)
[2018-07-31] MEDS: CARVEDILOL 12.5 MG TABLET PO SCH (20:30)
[2018-07-31] MEDS: DOCUSATE SODIUM 100 MG CAPSULE PO SCH (20:30)
[2018-08-01] MEDS: oxyCODONE/ACETAMINOPHEN 5-325 MG TABLET PO PRN (00:40)
[2018-08-01] MEDS: SODIUM CHLORIDE 0.9% 1,000 ML IV SCH (02:22)
[2018-08-01 04:59] LABS: Basophils # 0.1 10*3/uL (0.0-0.2); Basophils % 0.8 % (0.0-0.8); Eosinophils # 0.3 10*3/uL (0.0-0.87); Eosinophils % 2.4 % (0.00-10.9); Hematocrit 25.6 VOL% (35.7-47.0); Hemoglobin 8.1 GM/DL (12.0-16.0); Immature Granulocytes % 1.3 %; Immature Granulocytes Absolute 0.14 #; Lymphocytes # 1.9 10*3/uL (1.4-4.0); Lymphocytes % 17.2 % (21.3-54.2); Mean Corpuscular HGB Conc 31.6 GM/DL (32-36); Mean Corpuscular Volume 89.2 FL (87-102); Mean Platelet Volume 9.4 FL (9.6-12.0); Monocytes % 13.5 % (1.7-12.7); Neutrophils % 64.8 % (38.7-73.9); Platelet Count 513 T/CUMM (130-400); Red Blood Count 2.87 MC/CUMM (3.8-5.5); Red Cell Distribution Width 16.4 % (9.3-17.3); White Blood Count 11.1 T/CUMM (4-12)
[2018-08-01 05:17] LABS: Albumin 2.9 G/DL (3.4-5.0); Bilirubin,Total 0.7 MG/DL (0.2-1.0); Calcium 8.5 MG/DL (8.5-10.1); Osmolality,Calculated 270.2 MOS/KG (273-304); Total Protein 5.8 G/DL (6.4-8.3)
[2018-08-01] MEDS ORDERED: LEVOTHYROXINE 137 MCG TABLET PO SCH (07:00)
[2018-08-01 07:37] LABS: Basophils # 0.1 10*3/uL (0.0-0.2); Basophils % 0.8 % (0.0-0.8); Eosinophils # 0.3 10*3/uL (0.0-0.87); Eosinophils % 2.2 % (0.00-10.9); Hematocrit 26.8 VOL% (35.7-47.0); Hemoglobin 8.5 GM/DL (12.0-16.0); Immature Granulocytes % 1.3 %; Immature Granulocytes Absolute 0.15 #; Lymphocytes # 1.4 10*3/uL (1.4-4.0); Lymphocytes % 11.6 % (21.3-54.2); Mean Corpuscular HGB Conc 31.7 GM/DL (32-36); Mean Corpuscular Volume 90.5 FL (87-102); Mean Platelet Volume 9.1 FL (9.6-12.0); Monocytes % 11.7 % (1.7-12.7); Neutrophils % 72.4 % (38.7-73.9); Platelet Count 504 T/CUMM (130-400); Red Blood Count 2.96 MC/CUMM (3.8-5.5); Red Cell Distribution Width 16.4 % (9.3-17.3); White Blood Count 11.6 T/CUMM (4-12)
[2018-08-01 07:50] VITALS: BP 137/59
[2018-08-01 08:08] LABS: Folate 17.2 NG/ML (5.4-24.0); Vitamin B12 625 PG/ML (211-911)
[2018-08-01] MEDS: CARVEDILOL 12.5 MG TABLET PO SCH (08:08)
[2018-08-01] MEDS: MORPHINE ER 30 MG TABLET PO SCH (08:10)
[2018-08-01] MEDS: GABAPENTIN 300 MG CAPSULE PO SCH (08:10)
[2018-08-01] MEDS: DOCUSATE SODIUM 100 MG CAPSULE PO SCH (08:15)
[2018-08-01] MEDS: COLLAGENASE OINT 30 GM TUBE TOP SCH (08:16)
[2018-08-01 08:50] LABS: Sedimentation Rate-Westergren 95 MM/HR (0-30)
[2018-08-01] MEDS ORDERED: PANTOPRAZOLE 40 MG TABLET PO SCH ×2 (09:00)
[2018-08-01] MEDS ORDERED: buPROPion XL 150 MG TABLET PO SCH (09:00)
[2018-08-01] MEDS ORDERED: amLODIPine 10 MG TABLET PO SCH (09:00)
[2018-08-01] MEDS ORDERED: LOSARTAN 50 MG TABLET PO SCH (09:00)
[2018-08-01] MEDS ORDERED: RIVAROXABAN 20 MG TABLET PO SCH (09:00)
[2018-08-01] MEDS ORDERED: ROSUVASTATIN 10 MG TABLET PO SCH (09:00)
[2018-08-01] MEDS ORDERED: SPIRONOLACTONE 25 MG TABLET PO SCH (09:00)
[2018-08-01] MEDS ORDERED: FERROUS SULFATE 325 MG TABLET PO SCH (09:00)
[2018-08-01] MEDS ORDERED: MELOXICAM 7.5 MG TABLET PO SCH (09:00)
[2018-08-01] MEDS ORDERED: SODIUM BICARBONATE 650 MG TABLET PO SCH (09:00)
[2018-08-01] MEDS: ACETAMINOPHEN 325 MG TABLET PO PRN (10:48)
[2018-08-01] MEDS ORDERED: cloNIDine 0.2 MG/24 HR PATCH TRANSDERM SCH (13:39)
[2018-08-02 10:03] LABS: Hemoglobin A1 (Alkaline) 97.9 % (96.5-98.5); Hemoglobin A2 (Alkaline) 2.1 % (1.5-3.5)
== END 2018-08-01 12:16 | disposition home or self-care (01) ==
LOC: EDUNIT# → N.EDINP 07:43 → N.ED 07:43 → N.2E 12:56
PROVIDERS: ADMIT Family Medicine; ATTEND Family Medicine

== ENCOUNTER 2018-08-02 02:59 | Inpatient (IN) ==
[2018-08-02] MEDS ORDERED: methylPREDNISolone SOD SUC 125 MG/2 ML VIAL IV STA (03:18)
[2018-08-02] MEDS ORDERED: KETOROLAC 30 MG/1 ML VIAL IV STA (03:18)
[2018-08-02 03:48] LABS: Basophils # 0.1 10*3/uL (0.0-0.2); Basophils % 0.7 % (0.0-0.8); Eosinophils # 0.6 10*3/uL (0.0-0.87); Eosinophils % 3.8 % (0.00-10.9); Hematocrit 25.3 VOL% (35.7-47.0); Hemoglobin 8.3 GM/DL (12.0-16.0); Immature Granulocytes % 0.8 %; Immature Granulocytes Absolute 0.11 #; Lymphocytes # 1.4 10*3/uL (1.4-4.0); Lymphocytes % 9.4 % (21.3-54.2); Mean Corpuscular HGB Conc 32.8 GM/DL (32-36); Mean Corpuscular Volume 87.8 FL (87-102); Mean Platelet Volume 9.9 FL (9.6-12.0); Monocytes % 11.3 % (1.7-12.7); Platelet Count 597 T/CUMM (130-400); Red Blood Count 2.88 MC/CUMM (3.8-5.5); Red Cell Distribution Width 16.2 % (9.3-17.3); White Blood Count 14.6 T/CUMM (4-12)
[2018-08-02 04:24] LABS: Albumin 3.3 G/DL (3.4-5.0); Bilirubin,Total 0.5 MG/DL (0.2-1.0); CKMB % 1.1 %; Calcium 8.9 MG/DL (8.5-10.1); Osmolality,Calculated 266.7 MOS/KG (273-304); Total Protein 6.5 G/DL (6.4-8.3); Troponin I 0.026 NG/ML (0.00-0.045)
[2018-08-02 04:48] LABS: Apearance,Urine CLEAR (Clear); Bacteria,Urine Occasional /HPF (Few); Bilirubin,Urine Negative (Negative); Blood, Urine Small mg/dL (Negative); Glucose,Urine (UA) Negative (Negative); Ketones,Urine Negative (Negative); Nitrite,Urine Negative (Negative); Protein,Urine Negative; RBC,Urine 4 /HPF (0-4); Urine Color Yellow (Yellow); Urine Specific Gravity 1.013 (1.001-1.035); Urine Urobilinogen < 2.0 EU/DL (0.2-1.0); WBC,Urine 23 /HPF (0-6)
[2018-08-02] MEDS ORDERED: ACETAMINOPHEN 325 MG TABLET PO PRN (06:15)
[2018-08-02] MEDS ORDERED: ONDANSETRON 4 MG/2 ML VIAL IV PRN (06:15)
[2018-08-02] MEDS: HYDROmorphone 2 MG/1 ML VIAL IV PRN ×3 (07:50→22:01)
[2018-08-02] MEDS: SODIUM CHLORIDE 0.9% 1,000 ML IV SCH ×2 (08:01→15:58)
[2018-08-02 08:39] LABS: Troponin I 0.015 NG/ML (0.00-0.045)
[2018-08-02] MEDS: buPROPion XL 150 MG TABLET PO SCH (09:37)
[2018-08-02] MEDS: SODIUM BICARBONATE 650 MG TABLET PO SCH ×2 (09:37→20:27)
[2018-08-02] MEDS: SPIRONOLACTONE 25 MG TABLET PO SCH (09:38)
[2018-08-02] MEDS: DOCUSATE SODIUM 100 MG CAPSULE PO SCH ×2 (09:38→20:27)
[2018-08-02] MEDS: MORPHINE ER 30 MG TABLET PO SCH ×2 (09:38→20:27)
[2018-08-02] MEDS: CARVEDILOL 12.5 MG TABLET PO SCH ×2 (09:38→20:27)
[2018-08-02] MEDS: amLODIPine 10 MG TABLET PO SCH (09:38)
[2018-08-02] MEDS: GABAPENTIN 300 MG CAPSULE PO SCH ×3 (09:39→20:27)
[2018-08-02] MEDS: PANTOPRAZOLE 40 MG TABLET PO SCH (09:39)
[2018-08-02] MEDS: FERROUS SULFATE 325 MG TABLET PO SCH (09:39)
[2018-08-02] MEDS: RIVAROXABAN 20 MG TABLET PO SCH (09:39)
[2018-08-02] MEDS: LOSARTAN 50 MG TABLET PO SCH (09:46)
[2018-08-03] MEDS: SODIUM CHLORIDE 0.9% 1,000 ML IV SCH ×2 (00:05→08:54)
[2018-08-03 04:53] LABS: Basophils % 0.3 % (0.0-0.8); Eosinophils % 0.3 % (0.00-10.9); Hematocrit 24.2 VOL% (35.7-47.0); Hemoglobin 7.7 GM/DL (12.0-16.0); Immature Granulocytes Absolute 0.16 #; Lymphocytes # 1.4 10*3/uL (1.4-4.0); Mean Corpuscular HGB Conc 31.8 GM/DL (32-36); Monocytes % 8.6 % (1.7-12.7); Neutrophils % 80.8 % (38.7-73.9); Platelet Count 557 T/CUMM (130-400); Red Blood Count 2.69 MC/CUMM (3.8-5.5); Red Cell Distribution Width 16.1 % (9.3-17.3); White Blood Count 15.8 T/CUMM (4-12)
[2018-08-03 05:29] LABS: Albumin 3.1 G/DL (3.4-5.0); Bilirubin,Total 0.6 MG/DL (0.2-1.0); Osmolality,Calculated 270.4 MOS/KG (273-304); Total Protein 6.3 G/DL (6.4-8.3)
[2018-08-03] MEDS: LEVOTHYROXINE 137 MCG TABLET PO SCH (06:12)
[2018-08-03] MEDS: GABAPENTIN 300 MG CAPSULE PO SCH ×3 (08:54→21:21)
[2018-08-03] MEDS: LOSARTAN 50 MG TABLET PO SCH (08:54)
[2018-08-03] MEDS: FERROUS SULFATE 325 MG TABLET PO SCH (08:54)
[2018-08-03] MEDS: SODIUM BICARBONATE 650 MG TABLET PO SCH ×2 (08:54→21:20)
[2018-08-03] MEDS: buPROPion XL 150 MG TABLET PO SCH (08:54)
[2018-08-03] MEDS: RIVAROXABAN 20 MG TABLET PO SCH (08:55)
[2018-08-03] MEDS: DOCUSATE SODIUM 100 MG CAPSULE PO SCH ×2 (08:55→21:21)
[2018-08-03] MEDS: CARVEDILOL 12.5 MG TABLET PO SCH ×2 (08:55→21:21)
[2018-08-03] MEDS: PANTOPRAZOLE 40 MG TABLET PO SCH (08:55)
[2018-08-03] MEDS: MORPHINE ER 30 MG TABLET PO SCH ×2 (08:55→21:20)
[2018-08-03] MEDS: SPIRONOLACTONE 25 MG TABLET PO SCH (08:55)
[2018-08-03] MEDS: amLODIPine 10 MG TABLET PO SCH (08:55)
[2018-08-03] MEDS: HYDROmorphone 2 MG/1 ML VIAL IV PRN ×2 (10:29→22:30)
[2018-08-03] MEDS: AMOXICILLIN 875 MG TABLET PO SCH ×2 (14:26→21:20)
[2018-08-04] MEDS: LEVOTHYROXINE 137 MCG TABLET PO SCH (07:11)
[2018-08-04] MEDS: AMOXICILLIN 875 MG TABLET PO SCH ×2 (09:48→20:54)
[2018-08-04] MEDS: GABAPENTIN 300 MG CAPSULE PO SCH ×3 (09:49→20:54)
[2018-08-04] MEDS: buPROPion XL 150 MG TABLET PO SCH (09:50)
[2018-08-04] MEDS: CARVEDILOL 12.5 MG TABLET PO SCH ×2 (09:50→20:55)
[2018-08-04] MEDS: SPIRONOLACTONE 25 MG TABLET PO SCH (09:50)
[2018-08-04] MEDS: LOSARTAN 50 MG TABLET PO SCH ×2 (09:50→10:00)
[2018-08-04] MEDS: DOCUSATE SODIUM 100 MG CAPSULE PO SCH ×2 (09:50→20:55)
[2018-08-04] MEDS: PANTOPRAZOLE 40 MG TABLET PO SCH (09:51)
[2018-08-04] MEDS: amLODIPine 10 MG TABLET PO SCH ×2 (09:51→10:01)
[2018-08-04] MEDS: SODIUM BICARBONATE 650 MG TABLET PO SCH ×2 (09:51→20:54)
[2018-08-04] MEDS: RIVAROXABAN 20 MG TABLET PO SCH (09:51)
[2018-08-04] MEDS: FERROUS SULFATE 325 MG TABLET PO SCH (09:51)
[2018-08-04] MEDS: MORPHINE ER 30 MG TABLET PO SCH ×2 (10:08→20:55)
[2018-08-04 10:16] LABS: Basophils # 0.1 10*3/uL (0.0-0.2); Basophils % 0.7 % (0.0-0.8); Eosinophils # 0.3 10*3/uL (0.0-0.87); Hematocrit 25.7 VOL% (35.7-47.0); Hemoglobin 8.3 GM/DL (12.0-16.0); Immature Granulocytes % 0.6 %; Immature Granulocytes Absolute 0.08 #; Lymphocytes % 7.8 % (21.3-54.2); Mean Corpuscular HGB Conc 32.3 GM/DL (32-36); Mean Corpuscular Volume 88.9 FL (87-102); Mean Platelet Volume 9.2 FL (9.6-12.0); Monocytes % 10.5 % (1.7-12.7); Neutrophils % 78.4 % (38.7-73.9); Platelet Count 573 T/CUMM (130-400); Red Blood Count 2.89 MC/CUMM (3.8-5.5); Red Cell Distribution Width 16.1 % (9.3-17.3); White Blood Count 12.6 T/CUMM (4-12)
[2018-08-05 05:08] LABS: Basophils # 0.1 10*3/uL (0.0-0.2); Basophils % 0.9 % (0.0-0.8); Eosinophils # 0.5 10*3/uL (0.0-0.87); Eosinophils % 4.2 % (0.00-10.9); Hematocrit 25.9 VOL% (35.7-47.0); Hemoglobin 8.4 GM/DL (12.0-16.0); Immature Granulocytes % 1.1 %; Immature Granulocytes Absolute 0.12 #; Lymphocytes # 1.7 10*3/uL (1.4-4.0); Lymphocytes % 15.5 % (21.3-54.2); Mean Corpuscular HGB Conc 32.4 GM/DL (32-36); Mean Corpuscular Volume 88.7 FL (87-102); Mean Platelet Volume 9.4 FL (9.6-12.0); Monocytes % 12.3 % (1.7-12.7); Platelet Count 597 T/CUMM (130-400); Red Blood Count 2.92 MC/CUMM (3.8-5.5); Red Cell Distribution Width 16.2 % (9.3-17.3); White Blood Count 10.7 T/CUMM (4-12)
[2018-08-05] MEDS: LEVOTHYROXINE 137 MCG TABLET PO SCH (06:26)
[2018-08-05] MEDS: SODIUM BICARBONATE 650 MG TABLET PO SCH (10:21)
[2018-08-05] MEDS: AMOXICILLIN 875 MG TABLET PO SCH (10:21)
[2018-08-05] MEDS: LOSARTAN 50 MG TABLET PO SCH (10:22)
[2018-08-05] MEDS: MORPHINE ER 30 MG TABLET PO SCH (10:22)
[2018-08-05] MEDS: buPROPion XL 150 MG TABLET PO SCH (10:22)
[2018-08-05] MEDS: GABAPENTIN 300 MG CAPSULE PO SCH (10:22)
[2018-08-05] MEDS: SPIRONOLACTONE 25 MG TABLET PO SCH (10:22)
[2018-08-05] MEDS: FERROUS SULFATE 325 MG TABLET PO SCH (10:22)
[2018-08-05] MEDS: PANTOPRAZOLE 40 MG TABLET PO SCH (10:22)
[2018-08-05] MEDS: DOCUSATE SODIUM 100 MG CAPSULE PO SCH (10:22)
[2018-08-05] MEDS: RIVAROXABAN 20 MG TABLET PO SCH (10:23)
[2018-08-05] MEDS: amLODIPine 10 MG TABLET PO SCH (10:23)
[2018-08-05] MEDS: CARVEDILOL 12.5 MG TABLET PO SCH (10:23)
[2018-08-05 12:45] VITALS: BP 170/58
[2018-08-08] MEDS ORDERED: cloNIDine 0.2 MG/24 HR PATCH TRANSDERM SCH (08:08)
== END 2018-08-05 12:40 | disposition home or self-care (01) | DRG 948 ==
LOC: EDBD → EDUNIT# → N.ED 02:59 → N.EDINP 04:47 → N.2E 05:21
PROVIDERS: ADMIT Family Medicine; ATTEND Family Medicine

== ENCOUNTER 2018-09-03 08:07 | Inpatient (IN) ==
[2018-09-03 08:53] LABS: Basophils # 0.1 10*3/uL (0.0-0.2); Basophils % 1.4 % (0.0-0.8); Eosinophils # 0.3 10*3/uL (0.0-0.87); Eosinophils % 4.5 % (0.00-10.9); Hematocrit 33.4 VOL% (35.7-47.0); Hemoglobin 11.1 GM/DL (12.0-16.0); Immature Granulocytes % 0.6 %; Immature Granulocytes Absolute 0.04 #; Lymphocytes # 1.3 10*3/uL (1.4-4.0); Lymphocytes % 17.5 % (21.3-54.2); Mean Corpuscular HGB Conc 33.2 GM/DL (32-36); Mean Corpuscular Volume 86.5 FL (87-102); Mean Platelet Volume 8.9 FL (9.6-12.0); Monocytes % 12.1 % (1.7-12.7); Neutrophils % 63.9 % (38.7-73.9); Platelet Count 543 T/CUMM (130-400); Red Blood Count 3.86 MC/CUMM (3.8-5.5); White Blood Count 7.2 T/CUMM (4-12)
[2018-09-03 09:01] LABS: INR 0.9; PT Patient Result 9.6 SECS; Partial Thromboplastin Time 26.1 SECS (0-40)
[2018-09-03 09:14] LABS: Alanine Aminotransferase 37 U/L (13-56); Albumin 3.4 G/DL (3.4-5.0); Alkaline Phosphatase 100 U/L (45-117); Aspartate Amino Transferase 71 U/L (0-37); Bilirubin,Total < 0.39 MG/DL (0.2-1.0); Blood Urea Nitrogen 20 MG/DL (7-18); Calcium 9.5 MG/DL (8.5-10.1); Glucose 103 MG/DL (74-106); Osmolality,Calculated 257.2 MOS/KG (273-304); Total Protein 7.3 G/DL (6.4-8.3)
[2018-09-03 09:15] LABS: Urine Color Red (Yellow)
[2018-09-03 09:16] LABS: Apearance,Urine Turbid (Clear); Bilirubin,Urine Negative (Negative); Blood, Urine Large mg/dL (Negative); Glucose,Urine (UA) Negative (Negative); Ketones,Urine Negative (Negative); Nitrite,Urine Negative (Negative); Protein,Urine 3+ MG/DL; RBC,Urine TNTC /HPF (0-4); Urine Specific Gravity 1.005 (1.001-1.035); Urine Urobilinogen < 2.0 EU/DL (0.2-1.0); WBC,Urine F /HPF (0-6)
[2018-09-03 09:17] LABS: Bacteria,Urine Few /HPF (Few); Squamous Epithelial Cell,Urine Few /HPF (0-10)
[2018-09-03] MEDS ORDERED: ONDANSETRON 4 MG/2 ML VIAL IV PRN (10:49)
[2018-09-03] MEDS ORDERED: SODIUM CHLORIDE 0.9% 400 ML IV STA (11:02)
[2018-09-03] MEDS ORDERED: cefTRIAXone 1,000 MG in SYRINGE 1 EACH IV ONE (12:20)
[2018-09-03] MEDS: SODIUM CHLORIDE 0.9% 1,000 ML IV SCH ×2 (13:26→19:20)
[2018-09-03] MEDS ORDERED: fentaNYL 100 MCG/2 ML VIAL ONE (14:07)
[2018-09-03] MEDS ORDERED: PROPOFOL 200 MG/20 ML VIAL IV ONE (14:07)
[2018-09-03] MEDS ORDERED: PHENYLEPHRINE 1 MG/10 ML SYRINGE IV ONE (14:08)
[2018-09-03] MEDS ORDERED: SODIUM CHLORIDE 0.9% 100 ML IV ONE (14:08)
[2018-09-03] MEDS ORDERED: MIDAZOLAM 2 MG/2 ML VIAL ONE (14:08)
[2018-09-03] MEDS ORDERED: ACETAMINOPHEN 325 MG TABLET PO PRN (16:55)
[2018-09-03] MEDS: GABAPENTIN 300 MG CAPSULE PO SCH (21:06)
[2018-09-03] MEDS: CARVEDILOL 12.5 MG TABLET PO SCH (21:06)
[2018-09-03] MEDS: SODIUM BICARBONATE 650 MG TABLET PO SCH (21:06)
[2018-09-03] MEDS: busPIRone 5 MG TABLET PO SCH (21:06)
[2018-09-03] MEDS: ROSUVASTATIN 10 MG TABLET PO SCH (21:06)
[2018-09-03] MEDS: hydrALAZINE 25 MG TABLET PO SCH (21:06)
[2018-09-03] MEDS: Ramelteon [Rozerem] 8 MG PO SCH ×2 (23:04→23:21)
[2018-09-04] MEDS: SODIUM CHLORIDE 0.9% 1,000 ML IV SCH ×3 (03:20→20:49)
[2018-09-04 05:58] LABS: Basophils # 0.1 10*3/uL (0.0-0.2); Basophils % 1.2 % (0.0-0.8); Eosinophils # 0.4 10*3/uL (0.0-0.87); Eosinophils % 5.3 % (0.00-10.9); Hematocrit 25.1 VOL% (35.7-47.0); Hemoglobin 8.4 GM/DL (12.0-16.0); Immature Granulocytes % 0.7 %; Immature Granulocytes Absolute 0.05 #; Lymphocytes # 1.4 10*3/uL (1.4-4.0); Lymphocytes % 19.2 % (21.3-54.2); Mean Corpuscular HGB Conc 33.5 GM/DL (32-36); Mean Corpuscular Volume 86.3 FL (87-102); Mean Platelet Volume 9.1 FL (9.6-12.0); Monocytes % 12.4 % (1.7-12.7); Neutrophils % 61.2 % (38.7-73.9); Platelet Count 446 T/CUMM (130-400); Red Blood Count 2.91 MC/CUMM (3.8-5.5); Red Cell Distribution Width 13.9 % (9.3-17.3); White Blood Count 7.4 T/CUMM (4-12)
[2018-09-04] MEDS: LEVOTHYROXINE 125 MCG TABLET PO SCH (06:14)
[2018-09-04 06:35] LABS: Alanine Aminotransferase 33 U/L (13-56); Albumin 2.6 G/DL (3.4-5.0); Alkaline Phosphatase 80 U/L (45-117); Aspartate Amino Transferase 63 U/L (0-37); Bilirubin,Total < 0.39 MG/DL (0.2-1.0); Blood Urea Nitrogen 15 MG/DL (7-18); Calcium 8.5 MG/DL (8.5-10.1); Glucose 94 MG/DL (74-106); Osmolality,Calculated 257.1 MOS/KG (273-304); Thyroid Stimulating Hormone 0.211 uIU/ml (0.358-3.74)
[2018-09-04] MEDS ORDERED: SODIUM CHLORIDE 0.9% 1,000 ML IV PRN (07:34)
[2018-09-04] MEDS ORDERED: MAGNESIUM SULF RIDER 2 GM in PREMIX 1 EACH IV PRN (07:47)
[2018-09-04] MEDS ORDERED: MAGNESIUM SULF RIDER 4 GM in PREMIX 1 EACH IV PRN (07:47)
[2018-09-04] MEDS: busPIRone 5 MG TABLET PO SCH ×3 (09:35→20:42)
[2018-09-04] MEDS: buPROPion XL 150 MG TABLET PO SCH (09:35)
[2018-09-04] MEDS: hydrALAZINE 25 MG TABLET PO SCH ×2 (09:36→20:42)
[2018-09-04] MEDS: SODIUM BICARBONATE 650 MG TABLET PO SCH ×2 (09:36→20:42)
[2018-09-04] MEDS: CARVEDILOL 12.5 MG TABLET PO SCH ×2 (09:36→20:42)
[2018-09-04] MEDS: GABAPENTIN 300 MG CAPSULE PO SCH ×3 (09:36→20:43)
[2018-09-04] MEDS: amLODIPine 10 MG TABLET PO SCH (09:37)
[2018-09-04] MEDS: FERROUS SULFATE 325 MG TABLET PO SCH (09:37)
[2018-09-04] MEDS: LOSARTAN 50 MG TABLET PO SCH (09:37)
[2018-09-04] MEDS: Ramelteon [Rozerem] 8 MG PO SCH (20:42)
[2018-09-04] MEDS: ROSUVASTATIN 10 MG TABLET PO SCH (20:42)
[2018-09-05 05:11] LABS: Basophils # 0.1 10*3/uL (0.0-0.2); Basophils % 1.2 % (0.0-0.8); Eosinophils # 0.5 10*3/uL (0.0-0.87); Eosinophils % 5.7 % (0.00-10.9); Immature Granulocytes % 0.9 %; Immature Granulocytes Absolute 0.08 #; Lymphocytes # 1.6 10*3/uL (1.4-4.0); Mean Corpuscular HGB Conc 32.8 GM/DL (32-36); Mean Corpuscular Volume 86.5 FL (87-102); Mean Platelet Volume 8.8 FL (9.6-12.0); Monocytes % 15.7 % (1.7-12.7); Neutrophils % 58.5 % (38.7-73.9); Platelet Count 408 T/CUMM (130-400); Red Cell Distribution Width 14.3 % (9.3-17.3); White Blood Count 8.9 T/CUMM (4-12)
[2018-09-05] MEDS: SODIUM CHLORIDE 0.9% 1,000 ML IV SCH ×3 (05:15→21:00)
[2018-09-05 05:20] LABS: Albumin 3.1 G/DL (3.4-5.0); Bilirubin,Total 1.2 MG/DL (0.2-1.0); Osmolality,Calculated 266.4 MOS/KG (273-304); Total Protein 6.4 G/DL (6.4-8.3)
[2018-09-05 05:23] LABS: Hemoglobin 10.5 GM/DL (12.0-16.0)
[2018-09-05 05:35] LABS: Band Neutrophils 1 % (0-10); Eosinophils 8 % (0-10); Hypochromasia 1+; Lymphocytes 16 % (20-55); Platelet Estimate Adequate; Segmented Neutrophils 63 % (50-85); Total Cells Counted 100
[2018-09-05] MEDS ORDERED: cefTRIAXone 1,000 MG in SYRINGE 1 EACH IV ONE (09:00)
[2018-09-05] MEDS ORDERED: PROPOFOL 200 MG/20 ML VIAL IV ONE (10:18)
[2018-09-05] MEDS ORDERED: ePHEDrine 50 MG/ML AMP ONE (10:18)
[2018-09-05] MEDS ORDERED: SEVOFLURANE 1 UNIT/15 MINUTE INH ONE (10:18)
[2018-09-05] MEDS ORDERED: PHENYLEPHRINE 1 MG/10 ML SYRINGE IV ONE (10:18)
[2018-09-05] MEDS ORDERED: fentaNYL 100 MCG/2 ML VIAL ONE (10:18)
[2018-09-05] MEDS: LOSARTAN 50 MG TABLET PO SCH (11:23)
[2018-09-05] MEDS: SODIUM BICARBONATE 650 MG TABLET PO SCH ×2 (11:23→20:51)
[2018-09-05] MEDS: buPROPion XL 150 MG TABLET PO SCH (11:23)
[2018-09-05] MEDS: LEVOTHYROXINE 125 MCG TABLET PO SCH (11:24)
[2018-09-05] MEDS: hydrALAZINE 25 MG TABLET PO SCH ×2 (11:24→20:49)
[2018-09-05] MEDS: FERROUS SULFATE 325 MG TABLET PO SCH (11:24)
[2018-09-05] MEDS: CARVEDILOL 12.5 MG TABLET PO SCH ×2 (11:24→20:50)
[2018-09-05] MEDS: busPIRone 5 MG TABLET PO SCH ×3 (11:29→20:49)
[2018-09-05] MEDS: amLODIPine 10 MG TABLET PO SCH (11:34)
[2018-09-05] MEDS: GABAPENTIN 300 MG CAPSULE PO SCH ×3 (11:34→20:50)
[2018-09-05] MEDS: ROSUVASTATIN 10 MG TABLET PO SCH (20:50)
[2018-09-05] MEDS: Ramelteon [Rozerem] 8 MG PO SCH (20:51)
[2018-09-06] MEDS: SODIUM CHLORIDE 0.9% 1,000 ML IV SCH ×2 (03:54→12:09)
[2018-09-06 05:22] LABS: Basophils # 0.1 10*3/uL (0.0-0.2); Basophils % 1.2 % (0.0-0.8); Eosinophils # 0.5 10*3/uL (0.0-0.87); Eosinophils % 6.1 % (0.00-10.9); Hematocrit 28.5 VOL% (35.7-47.0); Hemoglobin 9.1 GM/DL (12.0-16.0); Immature Granulocytes % 0.9 %; Immature Granulocytes Absolute 0.07 #; Lymphocytes # 1.4 10*3/uL (1.4-4.0); Lymphocytes % 18.4 % (21.3-54.2); Mean Corpuscular HGB Conc 31.9 GM/DL (32-36); Mean Corpuscular Volume 88.5 FL (87-102); Mean Platelet Volume 8.4 FL (9.6-12.0); Monocytes % 13.9 % (1.7-12.7); Neutrophils % 59.5 % (38.7-73.9); Platelet Count 390 T/CUMM (130-400); Red Blood Count 3.22 MC/CUMM (3.8-5.5); Red Cell Distribution Width 14.6 % (9.3-17.3); White Blood Count 7.7 T/CUMM (4-12)
[2018-09-06 05:40] LABS: Calcium 8.9 MG/DL (8.5-10.1)
[2018-09-06] MEDS: LEVOTHYROXINE 125 MCG TABLET PO SCH (06:00)
[2018-09-06] MEDS: CARVEDILOL 12.5 MG TABLET PO SCH (08:10)
[2018-09-06] MEDS: amLODIPine 10 MG TABLET PO SCH (08:10)
[2018-09-06] MEDS: busPIRone 5 MG TABLET PO SCH (08:10)
[2018-09-06] MEDS: hydrALAZINE 25 MG TABLET PO SCH (08:10)
[2018-09-06] MEDS: buPROPion XL 150 MG TABLET PO SCH (08:10)
[2018-09-06] MEDS: SODIUM BICARBONATE 650 MG TABLET PO SCH (08:10)
[2018-09-06] MEDS: LOSARTAN 50 MG TABLET PO SCH (08:10)
[2018-09-06] MEDS: GABAPENTIN 300 MG CAPSULE PO SCH (08:11)
[2018-09-06] MEDS: FERROUS SULFATE 325 MG TABLET PO SCH (08:17)
[2018-09-06 11:59] VITALS: BP 125/78
== END 2018-09-06 12:00 | disposition home health service (06) | DRG 987 ==
LOC: EDUNIT# → EDBD → N.ED 08:07 → N.EDINP 11:15 → N.2E 15:13
PROVIDERS: ADMIT Family Medicine; ATTEND Family Medicine

== ENCOUNTER 2018-10-30 08:24 | Observation (INO) ==
[2018-10-30 08:47] LABS: Basophils # 0.1 10*3/uL (0.0-0.2); Basophils % 1.2 % (0.0-0.8); Eosinophils # 0.2 10*3/uL (0.0-0.87); Eosinophils % 1.7 % (0.00-10.9); Hematocrit 35.6 VOL% (35.7-47.0); Hemoglobin 11.6 GM/DL (12.0-16.0); Immature Granulocytes % 0.9 %; Immature Granulocytes Absolute 0.08 #; Lymphocytes # 2.3 10*3/uL (1.4-4.0); Lymphocytes % 25.2 % (21.3-54.2); Mean Corpuscular HGB Conc 32.6 GM/DL (32-36); Mean Corpuscular Volume 82.6 FL (87-102); Mean Platelet Volume 8.4 FL (9.6-12.0); Monocytes % 10.8 % (1.7-12.7); Neutrophils % 60.2 % (38.7-73.9); Platelet Count 580 T/CUMM (130-400); Red Blood Count 4.31 MC/CUMM (3.8-5.5); Red Cell Distribution Width 14.5 % (9.3-17.3)
[2018-10-30 08:56] LABS: INR 0.9; PT Patient Result 10.1 SECS (9.6-12.2); Partial Thromboplastin Time 26.4 SECS (20.8-36.0)
[2018-10-30 09:07] LABS: Alanine Aminotransferase 21 U/L (13-56); Albumin 3.6 G/DL (3.4-5.0); Alkaline Phosphatase 112 U/L (45-117); Aspartate Amino Transferase 63 U/L (0-37); Bilirubin,Total < 0.39 MG/DL (0.2-1.0); Blood Urea Nitrogen 16 MG/DL (7-18); Calcium 9.7 MG/DL (8.5-10.1); Estimated Glom Filtration Rate 60 ML/MIN; Glucose 103 MG/DL (74-106); Osmolality,Calculated 264.5 MOS/KG (273-304); Total Protein 7.9 G/DL (6.4-8.3); Troponin I < 0.015 NG/ML (0.00-0.045)
[2018-10-30] MEDS ORDERED: MORPHINE 4 MG/1 ML VIAL IV PRN (12:06)
[2018-10-30] MEDS ORDERED: ONDANSETRON 4 MG/2 ML VIAL IV PRN (12:06)
[2018-10-30 14:03] LABS: Troponin I < 0.015 NG/ML (0.00-0.045)
[2018-10-30 15:05] LABS: Troponin I < 0.015 NG/ML (0.00-0.045)
[2018-10-30] MEDS: busPIRone 15 MG TABLET PO SCH ×2 (16:21→22:01)
[2018-10-30] MEDS: GABAPENTIN 300 MG CAPSULE PO SCH ×2 (16:21→22:04)
[2018-10-30] MEDS ORDERED: hydrALAZINE 25 MG TABLET PO SCH (21:00)
[2018-10-30] MEDS ORDERED: BIMATOPROST 0.01% OPH SOLN 2.5 ML BOTTLE BOTH EYES SCH (21:00)
[2018-10-30] MEDS ORDERED: SODIUM BICARBONATE 650 MG TABLET PO SCH (21:00)
[2018-10-30] MEDS ORDERED: ROSUVASTATIN 10 MG TABLET PO SCH ×2 (21:00)
[2018-10-30] MEDS ORDERED: NITROFURANTOIN MACRO/MONO 100 MG CAPSULE PO SCH (21:00)
[2018-10-30] MEDS ORDERED: Ramelteon [Rozerem] 8 MG PO SCH (21:00)
[2018-10-30] MEDS ORDERED: carvediloL 12.5 MG TABLET PO SCH (21:00)
[2018-10-30] MEDS ORDERED: DOCUSATE SODIUM 100 MG CAPSULE PO SCH (21:00)
[2018-10-30] MEDS: ACETAMINOPHEN 325 MG TABLET PO PRN (23:08)
[2018-10-31] MEDS: ACETAMINOPHEN 325 MG TABLET PO PRN (06:29)
[2018-10-31] MEDS ORDERED: LEVOTHYROXINE 125 MCG TABLET PO SCH (07:00)
[2018-10-31 08:05] VITALS: BP 120/59
[2018-10-31] MEDS ORDERED: LOSARTAN 50 MG TABLET PO SCH (09:00)
[2018-10-31] MEDS ORDERED: buPROPion XL 150 MG TABLET PO SCH (09:00)
[2018-10-31] MEDS ORDERED: amLODIPine 10 MG TABLET PO SCH (09:00)
[2018-10-31] MEDS ORDERED: PANTOPRAZOLE 40 MG TABLET PO SCH (09:00)
[2018-10-31] MEDS ORDERED: Buprenorphine [Butrans] 1 PATCH TRANSDERM SCH (14:10)
[2018-10-31] MEDS ORDERED: POLYETHYLENE GLYCOL POWDER 17 GM PACK PO SCH (14:10)
[2018-11-01] MEDS ORDERED: FERROUS SULFATE 325 MG TABLET PO SCH (09:00)
== END 2018-10-31 10:05 | disposition home or self-care (01) ==
LOC: N.ED 08:24 → N.EDINP 08:24 → N.TELEN 11:36
PROVIDERS: ADMIT Family Medicine; ATTEND Family Medicine

== ENCOUNTER 2019-10-09 10:53 | Inpatient (IN) ==
[2019-10-09] MEDS ORDERED: PIPERACILLIN/TAZOBACTAM 3,375 MG in SODIUM CHLORIDE 0.9% 100 ML IV STA (11:48)
[2019-10-09] MEDS ORDERED: SODIUM CHLORIDE 0.9% 1,000 ML IV STA ×2 (11:50→16:02)
[2019-10-09 12:34] LABS: Apearance,Urine CLOUDY (Clear); Bilirubin,Urine Negative (Negative); Blood, Urine Moderate mg/dL (Negative); Glucose,Urine (UA) 50 mg/dL (Negative); Ketones,Urine 5 mg/dL (Negative); Nitrite,Urine Negative (Negative); Protein,Urine >=500 MG/DL; RBC,Urine 1221 /HPF (0-4); Urine Color Yellow (Yellow); Urine Specific Gravity 1.016 (1.001-1.035); Urine Urobilinogen < 2.0 EU/DL (0.2-1.0); WBC,Urine 123625 /HPF (0-6)
[2019-10-09 12:36] LABS: Alanine Aminotransferase 34 U/L (13-56); Albumin 3.8 G/DL (3.4-5.0); Alkaline Phosphatase 103 U/L (45-117); Aspartate Amino Transferase 43 U/L (0-37); Blood Urea Nitrogen 24 MG/DL (7-18); Calcium 9.2 MG/DL (8.5-10.1); Estimated Glom Filtration Rate 28 ML/MIN; Glucose 280 MG/DL (74-106); Osmolality,Calculated 283.1 MOS/KG (273-304); Total Protein 7.6 G/DL (6.4-8.3)
[2019-10-09 12:36] LABS: Basophils # 0.1 10*3/uL (0.0-0.2); Basophils % 0.4 % (0.0-0.8); Eosinophils % 0.1 % (0.00-10.9); Hematocrit 32.4 VOL% (35.7-47.0); Hemoglobin 10.8 GM/DL (12.0-16.0); Immature Granulocytes % 1.8 %; Immature Granulocytes Absolute 0.53 #; Lymphocytes # 1.9 10*3/uL (1.4-4.0); Lymphocytes % 6.7 % (21.3-54.2); Mean Corpuscular HGB Conc 33.3 GM/DL (32-36); Mean Corpuscular Volume 83.1 FL (87-102); Mean Platelet Volume 8.9 FL (9.6-12.0); Monocytes % 7.5 % (1.7-12.7); Neutrophils % 83.5 % (38.7-73.9); Platelet Count 544 T/CUMM (130-400)
[2019-10-09 12:58] LABS: Band Neutrophils 42 % (0-10); Lymphocytes 6 % (20-55); Metamyelocytes 1 %; Platelet Estimate Increased; Segmented Neutrophils 44 % (50-85); Total Cells Counted 100
[2019-10-09 12:59] LABS: Anisocytosis 1+
[2019-10-09] MEDS ORDERED: GLUCAGON 1 MG VIAL IM PRN (13:06)
[2019-10-09] MEDS ORDERED: ONDANSETRON 4 MG/2 ML VIAL IV PRN (13:06)
[2019-10-09] MEDS ORDERED: DEXTROSE 50% 25 GM/50 ML VIAL IV PRN (13:06)
[2019-10-09] MEDS ORDERED: SODIUM CHLORIDE 0.9% 500 ML IV ONE (13:17)
[2019-10-09 13:39] LABS: Risk Ratio 6.41; Thyroid Stimulating Hormone 1.11 uIU/ml (0.358-3.74); VLDL CHOLESTEROL 69.8 MG/DL
[2019-10-09] MEDS ORDERED: MEROPENEM 500 MG VIAL ONE (14:52)
[2019-10-09] MEDS ORDERED: MEROPENEM 1,000 MG in SODIUM CHLORIDE 0.9% 100 ML IV SCH (15:00)
[2019-10-09] MEDS: ENOXAPARIN 30 MG/0.3 ML SYRINGE SUBCUT SCH (15:10)
[2019-10-09] MEDS ORDERED: carvediloL 12.5 MG TABLET PO SCH (16:00)
[2019-10-09] MEDS: SODIUM CHLORIDE 0.9% 1,000 ML IV SCH (16:00)
[2019-10-09] MEDS ORDERED: LORazepam 1 MG TABLET PO SCH (18:00)
[2019-10-09] MEDS ORDERED: cefTRIAXone 1,000 MG in SYRINGE 1 EACH IV SCH (18:00)
[2019-10-09] MEDS: GABAPENTIN 300 MG CAPSULE PO SCH (19:03)
[2019-10-09] MEDS: ACETAMINOPHEN 325 MG TABLET PO PRN (19:31)
[2019-10-09] MEDS: SODIUM BICARBONATE 650 MG TABLET PO SCH (21:19)
[2019-10-09] MEDS: SODIUM CHLORIDE 0.9% 1,000 ML IV ONE ×2 (21:19)
[2019-10-09] MEDS: QUEtiapine 25 MG TABLET PO SCH (21:19)
[2019-10-09] MEDS ORDERED: ACETAMINOPHEN 650 MG SUPP RECTAL ONE (21:30)
[2019-10-09 21:33] LABS: Basophils # 0.1 10*3/uL (0.0-0.2); Basophils % 0.3 % (0.0-0.8); Eosinophils % 0.1 % (0.00-10.9); Hematocrit 23.8 VOL% (35.7-47.0); Immature Granulocytes % 1.4 %; Immature Granulocytes Absolute 0.25 #; Lymphocytes # 0.8 10*3/uL (1.4-4.0); Lymphocytes % 4.4 % (21.3-54.2); Mean Corpuscular HGB Conc 33.6 GM/DL (32-36); Mean Corpuscular Volume 84.7 FL (87-102); Mean Platelet Volume 8.9 FL (9.6-12.0); Monocytes % 7.9 % (1.7-12.7); Neutrophils % 85.9 % (38.7-73.9); Platelet Count 391 T/CUMM (130-400); Red Blood Count 2.81 MC/CUMM (3.8-5.5); White Blood Count 18.1 T/CUMM (4-12)
[2019-10-09 21:51] LABS: Albumin 1.4 G/DL (3.4-5.0); Bilirubin,Total 1.2 MG/DL (0.2-1.0); Calcium 7.1 MG/DL (8.5-10.1); Osmolality,Calculated 275.2 MOS/KG (273-304); Total Protein 5.1 G/DL (6.4-8.3)
[2019-10-09 21:54] LABS: Band Neutrophils 2 % (0-10); Eosinophils 2 % (0-10); Lymphocytes 1 % (20-55); Platelet Estimate Normal; Segmented Neutrophils 91 % (50-85); Total Cells Counted 100
[2019-10-09 21:55] LABS: Hypochromasia Slight; Microcytosis Slight
[2019-10-09] MEDS ORDERED: NOREPINEPHRINE 4 MG/4 ML VIAL IV ONE (22:59)
[2019-10-09] MEDS ORDERED: NOREPINEPHRINE 8 MG in SODIUM CHLORIDE 0.9% 242 ML IV PRN (23:10)
[2019-10-09] MEDS ORDERED: PIPERACILLIN/TAZOBACTAM 3,375 MG in SODIUM CHLORIDE 0.9% 100 ML IV SCH (23:30)
[2019-10-09] MEDS: INSULIN LISPRO 100 UNIT/ML SUBCUT SCH (23:37)
[2019-10-10] MEDS: SODIUM CHLORIDE 0.9% 1,000 ML IV SCH ×4 (02:00→20:45)
[2019-10-10] MEDS: GABAPENTIN 300 MG CAPSULE PO SCH ×5 (02:06→19:37)
[2019-10-10] MEDS: busPIRone 15 MG TABLET PO SCH ×4 (02:07→20:11)
[2019-10-10] MEDS: traZODone 50 MG TABLET PO SCH ×2 (02:08→20:08)
[2019-10-10] MEDS: ROSUVASTATIN 10 MG TABLET PO SCH ×2 (02:08→20:09)
[2019-10-10] MEDS: DIVALPROEX SPRINKLE 125 MG CAPSULE PO SCH ×3 (02:08→20:10)
[2019-10-10] MEDS: INSULIN LISPRO 100 UNIT/ML SUBCUT SCH ×5 (02:09→20:12)
[2019-10-10 03:53] LABS: Basophils # 0.1 10*3/uL (0.0-0.2); Basophils % 0.4 % (0.0-0.8); Hematocrit 29.5 VOL% (35.7-47.0); Hemoglobin 9.6 GM/DL (12.0-16.0); Immature Granulocytes % 1.8 %; Immature Granulocytes Absolute 0.41 #; Lymphocytes # 1.2 10*3/uL (1.4-4.0); Lymphocytes % 5.4 % (21.3-54.2); Mean Corpuscular HGB Conc 32.5 GM/DL (32-36); Mean Corpuscular Volume 85.3 FL (87-102); Mean Platelet Volume 9.1 FL (9.6-12.0); Monocytes % 7.5 % (1.7-12.7); Neutrophils % 84.9 % (38.7-73.9); Platelet Count 437 T/CUMM (130-400); Red Blood Count 3.46 MC/CUMM (3.8-5.5); Red Cell Distribution Width 14.3 % (9.3-17.3); White Blood Count 22.5 T/CUMM (4-12)
[2019-10-10 04:08] LABS: Calcium 7.8 MG/DL (8.5-10.1); Osmolality,Calculated 271.5 MOS/KG (273-304)
[2019-10-10 04:25] LABS: Band Neutrophils 2 % (0-10); Lymphocytes 3 % (20-55); Segmented Neutrophils 90 % (50-85); Total Cells Counted 100
[2019-10-10 04:26] LABS: Platelet Estimate Increased
[2019-10-10 04:27] LABS: Hypochromasia Slight; Microcytosis 1+
[2019-10-10 04:30] LABS: Polychromasia Slight
[2019-10-10] MEDS: LEVOTHYROXINE 137 MCG TABLET PO SCH (05:47)
[2019-10-10] MEDS ORDERED: amLODIPine 10 MG TABLET PO SCH (08:00)
[2019-10-10] MEDS: PANTOPRAZOLE 40 MG TABLET PO SCH (08:00)
[2019-10-10] MEDS ORDERED: PANTOPRAZOLE 40 MG TABLET PO SCH (09:00)
[2019-10-10] MEDS: FERROUS SULFATE 325 MG TABLET PO SCH (09:00)
[2019-10-10] MEDS: SODIUM BICARBONATE 650 MG TABLET PO SCH ×2 (09:26→20:10)
[2019-10-10] MEDS: ENOXAPARIN 30 MG/0.3 ML SYRINGE SUBCUT SCH (13:48)
[2019-10-10] MEDS: ACETAMINOPHEN 325 MG TABLET PO PRN (14:09)
[2019-10-10] MEDS ORDERED: NOREPINEPHRINE 4 MG/4 ML VIAL IV ONE (18:05)
[2019-10-10] MEDS: cefTRIAXone 1,000 MG in SYRINGE 1 EACH IV SCH (19:37)
[2019-10-10] MEDS: QUEtiapine 25 MG TABLET PO SCH (20:11)
[2019-10-10] MEDS: MENTHOL/ZINC OXIDE OINT 71 GM JAR TOP SCH (20:13)
[2019-10-11] MEDS: SODIUM CHLORIDE 0.9% 1,000 ML IV SCH ×4 (04:00→18:45)
[2019-10-11 04:34] LABS: Basophils # 0.1 10*3/uL (0.0-0.2); Basophils % 0.6 % (0.0-0.8); Eosinophils # 0.2 10*3/uL (0.0-0.87); Eosinophils % 1.4 % (0.00-10.9); Hematocrit 26.8 VOL% (35.7-47.0); Hemoglobin 8.6 GM/DL (12.0-16.0); Immature Granulocytes % 4.4 %; Immature Granulocytes Absolute 0.55 #; Lymphocytes # 1.2 10*3/uL (1.4-4.0); Lymphocytes % 9.8 % (21.3-54.2); Mean Corpuscular HGB Conc 32.1 GM/DL (32-36); Mean Platelet Volume 8.8 FL (9.6-12.0); Monocytes % 8.7 % (1.7-12.7); Neutrophils % 75.1 % (38.7-73.9); Platelet Count 445 T/CUMM (130-400); Red Blood Count 3.08 MC/CUMM (3.8-5.5); Red Cell Distribution Width 14.3 % (9.3-17.3); White Blood Count 12.5 T/CUMM (4-12)
[2019-10-11 04:39] LABS: Calcium 7.8 MG/DL (8.5-10.1); Osmolality,Calculated 278.5 MOS/KG (273-304)
[2019-10-11 05:17] LABS: Anisocytosis Slight; Band Neutrophils 6 % (0-10); Eosinophils 1 % (0-10); Lymphocytes 10 % (20-55); Macrocytosis Slight; Platelet Estimate Increased; Segmented Neutrophils 76 % (50-85); Total Cells Counted 100
[2019-10-11] MEDS: LEVOTHYROXINE 137 MCG TABLET PO SCH (06:18)
[2019-10-11] MEDS: INSULIN LISPRO 100 UNIT/ML SUBCUT SCH ×4 (06:48→20:22)
[2019-10-11] MEDS: GABAPENTIN 300 MG CAPSULE PO SCH ×4 (10:18→20:20)
[2019-10-11] MEDS: busPIRone 15 MG TABLET PO SCH ×3 (10:18→20:19)
[2019-10-11] MEDS: PANTOPRAZOLE 40 MG TABLET PO SCH (10:18)
[2019-10-11] MEDS: DIVALPROEX SPRINKLE 125 MG CAPSULE PO SCH ×2 (10:19→20:20)
[2019-10-11] MEDS: FERROUS SULFATE 325 MG TABLET PO SCH (10:19)
[2019-10-11] MEDS: SODIUM BICARBONATE 650 MG TABLET PO SCH ×2 (10:19→20:18)
[2019-10-11] MEDS: MENTHOL/ZINC OXIDE OINT 71 GM JAR TOP SCH ×2 (10:48→20:22)
[2019-10-11] MEDS: ENOXAPARIN 30 MG/0.3 ML SYRINGE SUBCUT SCH (13:09)
[2019-10-11] MEDS: cefTRIAXone 1,000 MG in SYRINGE 1 EACH IV SCH (18:10)
[2019-10-11] MEDS: traZODone 50 MG TABLET PO SCH (20:19)
[2019-10-11] MEDS: ROSUVASTATIN 10 MG TABLET PO SCH (20:20)
[2019-10-11] MEDS: QUEtiapine 25 MG TABLET PO SCH (20:20)
[2019-10-12] MEDS: SODIUM CHLORIDE 0.9% 1,000 ML IV SCH ×3 (00:16→10:31)
[2019-10-12] MEDS: LEVOTHYROXINE 137 MCG TABLET PO SCH (05:59)
[2019-10-12 06:17] LABS: Basophils # 0.1 10*3/uL (0.0-0.2); Basophils % 0.9 % (0.0-0.8); Eosinophils # 0.2 10*3/uL (0.0-0.87); Eosinophils % 2.1 % (0.00-10.9); Hematocrit 26.6 VOL% (35.7-47.0); Hemoglobin 8.6 GM/DL (12.0-16.0); Immature Granulocytes % 6.4 %; Immature Granulocytes Absolute 0.67 #; Lymphocytes # 1.4 10*3/uL (1.4-4.0); Mean Corpuscular HGB Conc 32.3 GM/DL (32-36); Mean Corpuscular Volume 85.8 FL (87-102); Mean Platelet Volume 9.1 FL (9.6-12.0); Monocytes % 11.1 % (1.7-12.7); Neutrophils % 66.5 % (38.7-73.9); Platelet Count 438 T/CUMM (130-400); Red Cell Distribution Width 14.3 % (9.3-17.3); White Blood Count 10.6 T/CUMM (4-12)
[2019-10-12 06:45] LABS: Calcium 7.6 MG/DL (8.5-10.1); Osmolality,Calculated 277.4 MOS/KG (273-304)
[2019-10-12] MEDS: INSULIN LISPRO 100 UNIT/ML SUBCUT SCH ×2 (07:19→11:14)
[2019-10-12] MEDS: PANTOPRAZOLE 40 MG TABLET PO SCH (08:09)
[2019-10-12] MEDS: busPIRone 15 MG TABLET PO SCH (08:09)
[2019-10-12] MEDS: FERROUS SULFATE 325 MG TABLET PO SCH (08:09)
[2019-10-12] MEDS: GABAPENTIN 300 MG CAPSULE PO SCH ×2 (08:09→11:27)
[2019-10-12] MEDS: DIVALPROEX SPRINKLE 125 MG CAPSULE PO SCH (08:10)
[2019-10-12] MEDS: SODIUM BICARBONATE 650 MG TABLET PO SCH (08:10)
[2019-10-12] MEDS: MENTHOL/ZINC OXIDE OINT 71 GM JAR TOP SCH (08:13)
[2019-10-12 09:47] LABS: Band Neutrophils 5 % (0-10); Eosinophils 1 % (0-10); Hypochromasia 2+; Lymphocytes 12 % (20-55); Metamyelocytes 2 %; Platelet Estimate Normal; Segmented Neutrophils 69 % (50-85); Total Cells Counted 100
[2019-10-12 11:17] VITALS: BP 132/48
[2019-10-12] MEDS ORDERED: ENOXAPARIN 40 MG/0.4 ML SYRINGE SUBCUT SCH (13:30)
== END 2019-10-12 15:08 | DRG 871 ==
LOC: EDBD → EDUNIT# → N.ED 10:53 → SUATTDRO 13:05 → N.EDINP 13:05 → N.3E 16:21 → N.CC 23:06 → N.ICU 10-10 01:03 → N.4E 10-11 15:43
PROVIDERS: ADMIT Family Medicine; ATTEND Emergency Medicine

== ENCOUNTER 2019-11-04 12:59 | Observation (INO) ==
[2019-11-04] MEDS ORDERED: SODIUM CHLORIDE 0.9% 1,000 ML IV STA (13:53)
[2019-11-04 14:11] LABS: Alanine Aminotransferase 14 U/L (13-56); Albumin 1.8 G/DL (3.4-5.0); Alkaline Phosphatase 81 U/L (45-117); Aspartate Amino Transferase 35 U/L (0-37); Blood Urea Nitrogen 57 MG/DL (7-18); Calcium 7.8 MG/DL (8.5-10.1); Estimated Glom Filtration Rate 14 ML/MIN; Glucose 82 MG/DL (74-106); Osmolality,Calculated 274.8 MOS/KG (273-304); Total Protein 5.5 G/DL (6.4-8.3); Troponin I < 0.015 NG/ML (0.00-0.045)
[2019-11-04 14:20] LABS: Basophils % 0.5 % (0.0-0.8); Eosinophils # 0.5 10*3/uL (0.0-0.87); Eosinophils % 6.8 % (0.00-10.9); Hematocrit 24.6 VOL% (35.7-47.0); Immature Granulocytes % 0.6 %; Immature Granulocytes Absolute 0.04 #; Lymphocytes # 1.5 10*3/uL (1.4-4.0); Lymphocytes % 22.6 % (21.3-54.2); Mean Corpuscular HGB Conc 32.5 GM/DL (32-36); Mean Corpuscular Volume 84.2 FL (87-102); Mean Platelet Volume 9.8 FL (9.6-12.0); Neutrophils % 57.5 % (38.7-73.9); Platelet Count 407 T/CUMM (130-400); Red Blood Count 2.92 MC/CUMM (3.8-5.5); Red Cell Distribution Width 16.1 % (9.3-17.3); White Blood Count 6.6 T/CUMM (4-12)
[2019-11-04 15:30] LABS: Bilirubin,Urine Negative (Negative); Blood, Urine Moderate mg/dL (Negative); Glucose,Urine (UA) Negative (Negative); Ketones,Urine Negative (Negative); Nitrite,Urine Positive (Negative); Protein,Urine 100 MG/DL; RBC,Urine 85 /HPF (0-4); Urine Appearance CLOUDY (Clear); Urine Color Yellow (Yellow); Urine Specific Gravity 1.011 (1.001-1.035); Urine Urobilinogen < 2.0 EU/DL (0.2-1.0); WBC,Urine 3793 /HPF (0-6)
[2019-11-04] MEDS ORDERED: LEVOFLOXACIN INJ 500 MG in PREMIX 1 EACH IV STA (15:59)
[2019-11-04] MEDS ORDERED: ONDANSETRON 4 MG TABLET PO PRN (17:02)
[2019-11-04] MEDS ORDERED: DEXTROSE 50% 25 GM/50 ML VIAL IV PRN (17:31)
[2019-11-04] MEDS ORDERED: ONDANSETRON 4 MG/2 ML VIAL IV PRN (17:31)
[2019-11-04] MEDS ORDERED: ACETAMINOPHEN 325 MG TABLET PO PRN (17:31)
[2019-11-04] MEDS ORDERED: GLUCAGON 1 MG VIAL IM PRN (17:31)
[2019-11-04] MEDS ORDERED: carvediloL 12.5 MG TABLET PO SCH (21:00)
[2019-11-04] MEDS: DIVALPROEX SPRINKLE 125 MG CAPSULE PO SCH (21:47)
[2019-11-04] MEDS: APIXABAN 5 MG TABLET PO SCH (21:47)
[2019-11-04] MEDS: ROSUVASTATIN 10 MG TABLET PO SCH (21:48)
[2019-11-04] MEDS: SODIUM BICARBONATE 650 MG TABLET PO SCH (21:48)
[2019-11-04] MEDS: SODIUM CHLORIDE 0.9% 1,000 ML IV SCH (22:05)
[2019-11-05 05:47] LABS: Basophils % 0.6 % (0.0-0.8); Eosinophils # 0.5 10*3/uL (0.0-0.87); Eosinophils % 7.4 % (0.00-10.9); Hematocrit 25.4 VOL% (35.7-47.0); Hemoglobin 8.2 GM/DL (12.0-16.0); Immature Granulocytes % 1.5 %; Lymphocytes # 1.3 10*3/uL (1.4-4.0); Lymphocytes % 19.5 % (21.3-54.2); Mean Corpuscular HGB Conc 32.3 GM/DL (32-36); Mean Corpuscular Volume 84.9 FL (87-102); Mean Platelet Volume 9.4 FL (9.6-12.0); Monocytes % 10.7 % (1.7-12.7); Neutrophils % 60.3 % (38.7-73.9); Platelet Count 396 T/CUMM (130-400); Red Blood Count 2.99 MC/CUMM (3.8-5.5); Red Cell Distribution Width 15.9 % (9.3-17.3); White Blood Count 6.8 T/CUMM (4-12)
[2019-11-05] MEDS: LEVOTHYROXINE 137 MCG TABLET PO SCH (06:10)
[2019-11-05 06:24] LABS: Osmolality,Calculated 280.1 MOS/KG (273-304)
[2019-11-05] MEDS: SODIUM CHLORIDE 0.9% 1,000 ML IV SCH ×2 (07:18→20:32)
[2019-11-05] MEDS ORDERED: HYDROmorphone 2 MG/1 ML VIAL IV ONE (07:34)
[2019-11-05] MEDS: SODIUM BICARBONATE 650 MG TABLET PO SCH ×2 (08:24→20:32)
[2019-11-05] MEDS: PANTOPRAZOLE 40 MG TABLET PO SCH (08:24)
[2019-11-05] MEDS: FERROUS SULFATE 325 MG TABLET PO SCH (08:24)
[2019-11-05] MEDS: DIVALPROEX SPRINKLE 125 MG CAPSULE PO SCH ×2 (08:25→20:30)
[2019-11-05] MEDS: APIXABAN 5 MG TABLET PO SCH ×2 (08:25→20:31)
[2019-11-05] MEDS ORDERED: CRAN VITC MANNOSE FOS BROMELN PO SCH (09:00)
[2019-11-05] MEDS: ROSUVASTATIN 10 MG TABLET PO SCH (20:31)
[2019-11-06] MEDS: SODIUM CHLORIDE 0.9% 1,000 ML IV SCH ×2 (01:30→14:50)
[2019-11-06] MEDS: LEVOTHYROXINE 137 MCG TABLET PO SCH (06:29)
[2019-11-06 08:06] LABS: Basophils # 0.1 10*3/uL (0.0-0.2); Basophils % 0.8 % (0.0-0.8); Eosinophils # 0.3 10*3/uL (0.0-0.87); Eosinophils % 3.7 % (0.00-10.9); Hematocrit 29.8 VOL% (35.7-47.0); Hemoglobin 9.4 GM/DL (12.0-16.0); Immature Granulocytes % 4.5 %; Immature Granulocytes Absolute 0.35 #; Lymphocytes # 1.3 10*3/uL (1.4-4.0); Lymphocytes % 16.2 % (21.3-54.2); Mean Corpuscular HGB Conc 31.5 GM/DL (32-36); Mean Corpuscular Volume 85.6 FL (87-102); Mean Platelet Volume 9.3 FL (9.6-12.0); Monocytes % 10.3 % (1.7-12.7); Neutrophils % 64.5 % (38.7-73.9); Platelet Count 441 T/CUMM (130-400); Red Blood Count 3.48 MC/CUMM (3.8-5.5); Red Cell Distribution Width 16.1 % (9.3-17.3); White Blood Count 7.8 T/CUMM (4-12)
[2019-11-06 08:27] LABS: Calcium 8.5 MG/DL (8.5-10.1); Osmolality,Calculated 278.7 MOS/KG (273-304)
[2019-11-06] MEDS: PANTOPRAZOLE 40 MG TABLET PO SCH (08:56)
[2019-11-06] MEDS: SODIUM BICARBONATE 650 MG TABLET PO SCH ×2 (08:57→21:35)
[2019-11-06] MEDS: DIVALPROEX SPRINKLE 125 MG CAPSULE PO SCH ×2 (08:57→21:35)
[2019-11-06] MEDS: FERROUS SULFATE 325 MG TABLET PO SCH (08:57)
[2019-11-06] MEDS: APIXABAN 5 MG TABLET PO SCH ×2 (08:57→21:35)
[2019-11-06] MEDS ORDERED: LEVOFLOXACIN INJ 250 MG in PREMIX 1 EACH IV SCH (09:00)
[2019-11-06] MEDS ORDERED: MAGNESIUM SULF RIDER 4 GM in PREMIX 1 EACH IV PRN (09:48)
[2019-11-06] MEDS ORDERED: MAGNESIUM SULF RIDER 2 GM in PREMIX 1 EACH IV PRN (09:48)
[2019-11-06] MEDS: ROSUVASTATIN 10 MG TABLET PO SCH (21:35)
[2019-11-07] MEDS: SODIUM CHLORIDE 0.9% 1,000 ML IV SCH (05:30)
[2019-11-07 05:44] LABS: Basophils # 0.1 10*3/uL (0.0-0.2); Basophils % 0.5 % (0.0-0.8); Eosinophils # 0.2 10*3/uL (0.0-0.87); Eosinophils % 2.4 % (0.00-10.9); Hematocrit 31.4 VOL% (35.7-47.0); Hemoglobin 10.3 GM/DL (12.0-16.0); Immature Granulocytes % 7.3 %; Immature Granulocytes Absolute 0.71 #; Lymphocytes # 1.6 10*3/uL (1.4-4.0); Lymphocytes % 16.1 % (21.3-54.2); Mean Corpuscular HGB Conc 32.8 GM/DL (32-36); Mean Corpuscular Volume 83.7 FL (87-102); Mean Platelet Volume 9.2 FL (9.6-12.0); Monocytes % 14.7 % (1.7-12.7); Platelet Count 476 T/CUMM (130-400); Red Blood Count 3.75 MC/CUMM (3.8-5.5); Red Cell Distribution Width 15.9 % (9.3-17.3); White Blood Count 9.7 T/CUMM (4-12)
[2019-11-07 05:55] LABS: Calcium 8.4 MG/DL (8.5-10.1); Osmolality,Calculated 272.8 MOS/KG (273-304)
[2019-11-07 06:12] LABS: Band Neutrophils 4 % (0-10); Eosinophils 3 % (0-10); Hypochromasia 1+; Lymphocytes 24 % (20-55); Microcytosis Slight; Platelet Estimate Adequate; Segmented Neutrophils 61 % (50-85); Total Cells Counted 100
[2019-11-07] MEDS: LEVOTHYROXINE 137 MCG TABLET PO SCH (06:41)
[2019-11-07 07:58] VITALS: BP 175/60
[2019-11-07] MEDS ORDERED: cefTRIAXone 1,000 MG in SYRINGE 1 EACH IV SCH (08:00)
[2019-11-07] MEDS ORDERED: LOSARTAN 25 MG TABLET PO SCH (09:00)
[2019-11-07] MEDS ORDERED: amLODIPine 5 MG TABLET PO SCH (09:00)
[2019-11-07] MEDS ORDERED: GABAPENTIN 300 MG CAPSULE PO SCH (09:00)
[2019-11-07] MEDS ORDERED: hydrALAZINE 10 MG TABLET PO SCH (09:00)
[2019-11-07] MEDS ORDERED: busPIRone 5 MG TABLET PO SCH (09:00)
[2019-11-07] MEDS: APIXABAN 5 MG TABLET PO SCH (09:26)
[2019-11-07] MEDS: DIVALPROEX SPRINKLE 125 MG CAPSULE PO SCH (09:26)
[2019-11-07] MEDS: PANTOPRAZOLE 40 MG TABLET PO SCH (09:27)
[2019-11-07] MEDS: SODIUM BICARBONATE 650 MG TABLET PO SCH (09:27)
[2019-11-07] MEDS: FERROUS SULFATE 325 MG TABLET PO SCH (09:27)
== END 2019-11-07 11:52 ==
LOC: EDUNIT# → EDBD → N.ED 12:59 → N.EDINP 12:59 → N.5E 17:56
PROVIDERS: ADMIT Internal Medicine; ATTEND Internal Medicine

== ENCOUNTER 2019-11-29 10:27 | Inpatient (IN) ==
[2019-11-29 11:10] LABS: Basophils # 0.1 10*3/uL (0.0-0.2); Basophils % 0.7 % (0.0-0.8); Eosinophils % 0.1 % (0.00-10.9); Hemoglobin 8.1 GM/DL (12.0-16.0); Immature Granulocytes % 1.2 %; Immature Granulocytes Absolute 0.15 #; Lymphocytes # 2.2 10*3/uL (1.4-4.0); Lymphocytes % 17.1 % (21.3-54.2); Mean Corpuscular HGB Conc 32.4 GM/DL (32-36); Mean Corpuscular Volume 85.9 FL (87-102); Mean Platelet Volume 8.8 FL (9.6-12.0); Monocytes % 9.9 % (1.7-12.7); Platelet Count 439 T/CUMM (130-400); Red Blood Count 2.91 MC/CUMM (3.8-5.5); Red Cell Distribution Width 17.2 % (9.3-17.3); White Blood Count 12.7 T/CUMM (4-12)
[2019-11-29 11:31] LABS: RBC,Urine 2182 /HPF (0-4); Urine Appearance Turbid (Clear); Urine Color Yellow (Yellow); WBC,Urine 52703 /HPF (0-6)
[2019-11-29 11:32] LABS: Bilirubin,Urine Negative (Negative); Blood, Urine Large mg/dL (Negative); Glucose,Urine (UA) Negative (Negative); Ketones,Urine Negative (Negative); Nitrite,Urine Negative (Negative); Protein,Urine 100 MG/DL; Urine Urobilinogen 0.2 EU/DL (0.2-1.0)
[2019-11-29 11:36] LABS: Osmolality,Calculated 269.9 MOS/KG (273-304)
[2019-11-29] MEDS ORDERED: cefTRIAXone 1,000 MG in SODIUM CHLORIDE 0.9% 100 ML IV STA (11:45)
[2019-11-29] MEDS ORDERED: cefTRIAXone 1,000 MG in SYRINGE 1 EACH IV STA (11:47)
[2019-11-29] MEDS ORDERED: SODIUM CHLORIDE 0.9% 500 ML IV STA (12:10)
[2019-11-29] MEDS ORDERED: SODIUM CHLORIDE 0.9% 100 ML IV ONE (12:24)
[2019-11-29] MEDS ORDERED: DEXTROSE 50% 25 GM/50 ML VIAL IV PRN (13:33)
[2019-11-29] MEDS ORDERED: GLUCAGON 1 MG VIAL IM PRN (13:33)
[2019-11-29] MEDS ORDERED: PNEUMOCOCCAL VACCINE (13 VALENT) 0.5 ML SYRINGE IM ONE (15:17)
[2019-11-29] MEDS: ACETAMINOPHEN 325 MG TABLET PO PRN (15:22)
[2019-11-29] MEDS ORDERED: INFLUENZA VIRUS VACCINE 0.5 ML SYRINGE IM ONE (15:23)
[2019-11-29] MEDS: SODIUM CHLORIDE 0.9% 1,000 ML IV SCH (17:04)
[2019-11-30] MEDS: SODIUM CHLORIDE 0.9% 1,000 ML IV SCH ×3 (01:15→22:15)
[2019-11-30] MEDS: ACETAMINOPHEN 325 MG TABLET PO PRN (04:36)
[2019-11-30 06:12] LABS: Calcium 7.9 MG/DL (8.5-10.1); Osmolality,Calculated 274.2 MOS/KG (273-304)
[2019-11-30 06:15] LABS: Basophils # 0.1 10*3/uL (0.0-0.2); Basophils % 0.6 % (0.0-0.8); Eosinophils # 0.1 10*3/uL (0.0-0.87); Eosinophils % 0.6 % (0.00-10.9); Hematocrit 24.3 VOL% (35.7-47.0); Hemoglobin 7.8 GM/DL (12.0-16.0); Immature Granulocytes % 1.2 %; Immature Granulocytes Absolute 0.13 #; Lymphocytes # 1.2 10*3/uL (1.4-4.0); Lymphocytes % 11.2 % (21.3-54.2); Mean Corpuscular HGB Conc 32.1 GM/DL (32-36); Mean Corpuscular Volume 85.9 FL (87-102); Monocytes % 8.9 % (1.7-12.7); Neutrophils % 77.5 % (38.7-73.9); Platelet Count 437 T/CUMM (130-400); Red Blood Count 2.83 MC/CUMM (3.8-5.5); Red Cell Distribution Width 16.9 % (9.3-17.3); White Blood Count 10.8 T/CUMM (4-12)
[2019-11-30] MEDS ORDERED: MAGNESIUM SULF RIDER 4 GM in PREMIX 1 EACH IV ONE (07:03)
[2019-11-30] MEDS: cefTRIAXone 1,000 MG in SYRINGE 1 EACH IV SCH (08:16)
[2019-11-30] MEDS ORDERED: MINERAL OIL ENEMA 133 ML BOTTLE RECTAL PRN (15:13)
[2019-11-30] MEDS ORDERED: MAGNESIUM HYDROXIDE SUSP 30 ML UDCUP PO PRN (15:13)
[2019-11-30] MEDS: POLYETHYLENE GLYCOL POWDER 17 GM PACK PO SCH (15:16)
[2019-11-30] MEDS: ONDANSETRON 4 MG/2 ML VIAL IV PRN (21:26)
[2019-12-01 04:59] LABS: Basophils # 0.1 10*3/uL (0.0-0.2); Basophils % 0.6 % (0.0-0.8); Eosinophils # 0.3 10*3/uL (0.0-0.87); Hemoglobin 7.9 GM/DL (12.0-16.0); Immature Granulocytes % 1.5 %; Immature Granulocytes Absolute 0.12 #; Lymphocytes # 1.5 10*3/uL (1.4-4.0); Lymphocytes % 19.3 % (21.3-54.2); Mean Corpuscular HGB Conc 32.9 GM/DL (32-36); Mean Corpuscular Volume 84.5 FL (87-102); Mean Platelet Volume 8.5 FL (9.6-12.0); Monocytes % 10.7 % (1.7-12.7); Neutrophils % 63.9 % (38.7-73.9); Platelet Count 387 T/CUMM (130-400); Red Blood Count 2.84 MC/CUMM (3.8-5.5); Red Cell Distribution Width 16.6 % (9.3-17.3); White Blood Count 7.8 T/CUMM (4-12)
[2019-12-01 05:19] LABS: Calcium 7.5 MG/DL (8.5-10.1); Osmolality,Calculated 274.8 MOS/KG (273-304)
[2019-12-01] MEDS: POLYETHYLENE GLYCOL POWDER 17 GM PACK PO SCH (08:36)
[2019-12-01] MEDS: cefTRIAXone 1,000 MG in SYRINGE 1 EACH IV SCH (09:15)
[2019-12-01] MEDS: DOCUSATE SODIUM 100 MG CAPSULE PO SCH ×2 (09:27→20:36)
[2019-12-01] MEDS: SODIUM CHLORIDE 0.9% 1,000 ML IV SCH ×2 (12:38→23:24)
[2019-12-01] MEDS: ONDANSETRON 4 MG/2 ML VIAL IV PRN (20:54)
[2019-12-02] MEDS: SODIUM CHLORIDE 0.9% 1,000 ML IV SCH (06:05)
[2019-12-02 07:16] LABS: Basophils # 0.1 10*3/uL (0.0-0.2); Basophils % 0.8 % (0.0-0.8); Eosinophils # 0.2 10*3/uL (0.0-0.87); Eosinophils % 2.7 % (0.00-10.9); Hematocrit 27.4 VOL% (35.7-47.0); Hemoglobin 8.9 GM/DL (12.0-16.0); Immature Granulocytes % 1.9 %; Immature Granulocytes Absolute 0.14 #; Lymphocytes # 1.2 10*3/uL (1.4-4.0); Lymphocytes % 15.6 % (21.3-54.2); Mean Corpuscular HGB Conc 32.5 GM/DL (32-36); Mean Corpuscular Volume 84.8 FL (87-102); Mean Platelet Volume 8.6 FL (9.6-12.0); Monocytes % 9.2 % (1.7-12.7); Neutrophils % 69.8 % (38.7-73.9); Platelet Count 436 T/CUMM (130-400); Red Blood Count 3.23 MC/CUMM (3.8-5.5); Red Cell Distribution Width 16.2 % (9.3-17.3); White Blood Count 7.4 T/CUMM (4-12)
[2019-12-02 07:24] LABS: Osmolality,Calculated 272.7 MOS/KG (273-304)
[2019-12-02] MEDS: DOCUSATE SODIUM 100 MG CAPSULE PO SCH (09:36)
[2019-12-02] MEDS: POLYETHYLENE GLYCOL POWDER 17 GM PACK PO SCH (09:36)
[2019-12-02] MEDS: cefTRIAXone 1,000 MG in SYRINGE 1 EACH IV SCH (09:36)
[2019-12-02 11:31] VITALS: BP 164/65
== END 2019-12-02 12:28 | disposition swing bed (61) | DRG 690 ==
LOC: EDUNIT# → N.ED 10:27 → SUATTDRO 14:32 → N.EDINP 14:32 → N.3E 15:01
PROVIDERS: ADMIT Internal Medicine; ATTEND Internal Medicine

== ENCOUNTER 2020-05-21 07:37 | Observation (INO) ==
[2020-05-21] MEDS ORDERED: SODIUM CHLORIDE 0.9% 1,000 ML IV STA (08:05)
[2020-05-21] MEDS ORDERED: PIPERACILLIN/TAZOBACTAM 3,375 MG in SODIUM CHLORIDE 0.9% 100 ML IV STA (08:05)
[2020-05-21 08:15] LABS: Basophils # 0.1 10*3/uL (0.0-0.2); Basophils % 0.4 % (0.0-0.8); Eosinophils % 0.3 % (0.00-10.9); Hematocrit 35.3 VOL% (35.7-47.0); Hemoglobin 11.1 GM/DL (12.0-16.0); Immature Granulocytes % 0.3 %; Immature Granulocytes Absolute 0.04 #; Lymphocytes % 16.1 % (21.3-54.2); Mean Corpuscular HGB Conc 31.4 GM/DL (32-36); Mean Corpuscular Volume 88.3 FL (87-102); Mean Platelet Volume 9.8 FL (9.6-12.0); Monocytes % 11.7 % (1.7-12.7); Neutrophils % 71.2 % (38.7-73.9); Platelet Count 303 T/CUMM (130-400); Red Cell Distribution Width 13.5 % (9.3-17.3); White Blood Count 12.6 T/CUMM (4-12)
[2020-05-21 08:29] LABS: INR 1.2; PT Patient Result 12.8 SECS (9.8-11.9); Partial Thromboplastin Time 32.3 SECS (23.9-33.8)
[2020-05-21 08:34] LABS: Albumin 3.1 G/DL (3.4-5.0); Bilirubin,Total 0.4 MG/DL (0.2-1.0); Calcium 8.9 MG/DL (8.5-10.1); Osmolality,Calculated 276.4 MOS/KG (273-304); Potassium 5.3 MMOL/L (3.5-5.1)
[2020-05-21 09:02] LABS: Bilirubin,Urine Negative (Negative); Blood, Urine Large mg/dL (Negative); Glucose,Urine (UA) Negative (Negative); Ketones,Urine Negative (Negative); Nitrite,Urine Negative (Negative); Protein,Urine 100 MG/DL; RBC,Urine 11407 /HPF (0-4); Urine Appearance CLOUDY (Clear); Urine Color Red (Yellow); Urine Urobilinogen < 2.0 EU/DL (0.2-1.0); WBC,Urine 56468 /HPF (0-6)
[2020-05-21] MEDS ORDERED: ACETAMINOPHEN 325 MG TABLET PO PRN (10:48)
[2020-05-21] MEDS ORDERED: hydrALAZINE 20 MG/1 ML VIAL IV PRN (10:48)
[2020-05-21] MEDS ORDERED: DEXTROSE 50% 25 GM/50 ML VIAL IV PRN (10:48)
[2020-05-21] MEDS ORDERED: ONDANSETRON 4 MG/2 ML VIAL IV PRN (10:48)
[2020-05-21] MEDS ORDERED: GLUCAGON 1 MG VIAL IM PRN (10:48)
[2020-05-21] MEDS: SODIUM CHLORIDE 0.45% 1,000 ML IV SCH (11:15)
[2020-05-21] MEDS: GABAPENTIN 300 MG CAPSULE PO SCH ×3 (13:43→20:38)
[2020-05-21] MEDS: busPIRone 5 MG TABLET PO SCH ×2 (14:57→20:38)
[2020-05-21] MEDS ORDERED: LORazepam 0.5 MG TABLET PO SCH (17:00)
[2020-05-21] MEDS: PIPERACILLIN/TAZOBACTAM 3,375 MG in SODIUM CHLORIDE 0.9% 100 ML IV SCH (20:37)
[2020-05-21] MEDS: carvediloL 12.5 MG TABLET PO SCH (20:38)
[2020-05-21] MEDS: SODIUM BICARBONATE 650 MG TABLET PO SCH (20:38)
[2020-05-21] MEDS: DIVALPROEX SPRINKLE 125 MG CAPSULE PO SCH (20:39)
[2020-05-21] MEDS ORDERED: QUEtiapine 25 MG TABLET PO SCH (21:00)
[2020-05-21] MEDS ORDERED: ROSUVASTATIN 10 MG TABLET PO SCH (21:00)
[2020-05-21] MEDS: hydrALAZINE 10 MG TABLET PO SCH (21:14)
[2020-05-21] MEDS: traMADol 50 MG TABLET PO PRN (21:52)
[2020-05-22] MEDS: SODIUM CHLORIDE 0.45% 1,000 ML IV SCH (03:41)
[2020-05-22] MEDS ORDERED: SODIUM CHLORIDE 0.9% 500 ML IV ONE (04:06)
[2020-05-22 06:17] LABS: Basophils % 0.5 % (0.0-0.8)
[2020-05-22 06:28] LABS: Eosinophils # 0.2 10*3/uL (0.0-0.87); Eosinophils % 2.5 % (0.00-10.9); Immature Granulocytes % 0.4 %; Immature Granulocytes Absolute 0.03 #; Lymphocytes # 1.9 10*3/uL (1.4-4.0); Mean Corpuscular Volume 89.5 FL (87-102); Mean Platelet Volume 10.1 FL (9.6-12.0); Monocytes % 11.7 % (1.7-12.7); Neutrophils % 62.9 % (38.7-73.9); Red Blood Count 3.24 MC/CUMM (3.8-5.5); Red Cell Distribution Width 13.5 % (9.3-17.3)
[2020-05-22] MEDS ORDERED: LEVOTHYROXINE 137 MCG TABLET PO SCH (06:30)
[2020-05-22 06:31] LABS: Platelet Count 220 T/CUMM (130-400); White Blood Count 8.5 T/CUMM (4-12)
[2020-05-22 06:44] LABS: Calcium 8.2 MG/DL (8.5-10.1); Potassium 4.3 MMOL/L (3.5-5.1)
[2020-05-22] MEDS: traMADol 50 MG TABLET PO PRN (08:19)
[2020-05-22] MEDS: SODIUM BICARBONATE 650 MG TABLET PO SCH (08:19)
[2020-05-22] MEDS: DIVALPROEX SPRINKLE 125 MG CAPSULE PO SCH (08:20)
[2020-05-22] MEDS: busPIRone 5 MG TABLET PO SCH (08:20)
[2020-05-22] MEDS: GABAPENTIN 300 MG CAPSULE PO SCH (08:20)
[2020-05-22] MEDS: PIPERACILLIN/TAZOBACTAM 3,375 MG in SODIUM CHLORIDE 0.9% 100 ML IV SCH (08:21)
[2020-05-22] MEDS: hydrALAZINE 10 MG TABLET PO SCH (08:21)
[2020-05-22] MEDS: carvediloL 12.5 MG TABLET PO SCH (08:21)
[2020-05-22] MEDS ORDERED: amLODIPine 5 MG TABLET PO SCH (09:00)
[2020-05-22] MEDS ORDERED: PANTOPRAZOLE 40 MG TABLET PO SCH (09:00)
[2020-05-22] MEDS ORDERED: FERROUS SULFATE 325 MG TABLET PO SCH (09:00)
[2020-05-22 11:57] VITALS: BP 105/30
[2020-05-22] MEDS ORDERED: PIPERACILLIN/TAZOBACTAM 3,375 MG in SODIUM CHLORIDE 0.9% 100 ML IV SCH (17:00)
== END 2020-05-22 12:18 ==
LOC: EDBD → EDUNIT# → N.ED 07:37 → N.EDINP 07:37 → SUATTDRO 10:48 → N.5E 12:30
PROVIDERS: ADMIT Internal Medicine; ATTEND Internal Medicine

== ENCOUNTER 2020-12-29 22:35 | Inpatient (IN) ==
[2020-12-29] MEDS ORDERED: SODIUM CHLORIDE 0.9% 1,000 ML IV STA (23:01)
[2020-12-29 23:18] LABS: Basophils % 0.4 % (0.0-0.8); Hematocrit 34.4 VOL% (35.7-47.0); Hemoglobin 11.2 GM/DL (12.0-16.0); Immature Granulocytes % 0.5 %; Immature Granulocytes Absolute 0.05 #; Lymphocytes # 1.5 10*3/uL (1.4-4.0); Lymphocytes % 14.6 % (21.3-54.2); Mean Corpuscular HGB Conc 32.6 GM/DL (32-36); Mean Corpuscular Volume 84.1 FL (87-102); Mean Platelet Volume 9.5 FL (9.6-12.0); Neutrophils % 67.5 % (38.7-73.9); Platelet Count 338 T/CUMM (130-400); Red Blood Count 4.09 MC/CUMM (3.8-5.5); Red Cell Distribution Width 14.3 % (9.3-17.3); White Blood Count 10.2 T/CUMM (4-12)
[2020-12-29 23:38] LABS: Albumin 2.9 G/DL (3.4-5.0); Bilirubin,Total 0.5 MG/DL (0.20-1.00); Calcium 8.8 MG/DL (8.5-10.1); Osmolality,Calculated 269.9 MOS/KG (273-304); Potassium 5.3 MMOL/L (3.5-5.1); Total Protein 7.4 G/DL (6.4-8.2)
[2020-12-29 23:43] LABS: Bilirubin,Urine Negative (Negative); Blood, Urine Moderate mg/dL (Negative); Glucose,Urine (UA) Negative (Negative); Ketones,Urine Negative (Negative); Nitrite,Urine Negative (Negative); Protein,Urine 30 MG/DL; RBC,Urine 670 /HPF (0-4); Squamous Epithelial Cell,Urine Many /HPF (0-10); Urine Appearance CLOUDY (Clear); Urine Color Yellow (Yellow); Urine Specific Gravity 1.005 (1.001-1.035); Urine Urobilinogen < 2.0 EU/DL (0.2-1.0)
[2020-12-30] MEDS ORDERED: MEROPENEM 1,000 MG in SODIUM CHLORIDE 0.9% 100 ML IV ONE ×2 (00:31→01:00)
[2020-12-30] MEDS ORDERED: IBUPROFEN 600 MG TABLET PO STA (00:32)
[2020-12-30] MEDS ORDERED: MEROPENEM 1,000 MG VIAL ONE (00:33)
[2020-12-30] MEDS ORDERED: SODIUM CHLORIDE 0.9% 100 ML IV ONE (00:34)
[2020-12-30] MEDS ORDERED: DEXTROSE 50% 25 GM/50 ML VIAL IV PRN (01:03)
[2020-12-30] MEDS ORDERED: GLUCAGON 1 MG VIAL IM PRN (01:03)
[2020-12-30] MEDS ORDERED: ENOXAPARIN 30 MG/0.3 ML SYRINGE SUBCUT SCH (01:30)
[2020-12-30] MEDS: LACTATED RINGERS 1,000 ML IV SCH ×2 (01:32→12:41)
[2020-12-30] MEDS: ACETAMINOPHEN 325 MG TABLET PO PRN ×3 (03:10→21:26)
[2020-12-30 05:16] LABS: Basophils # 0.1 10*3/uL (0.0-0.2); Basophils % 0.6 % (0.0-0.8); Eosinophils % 0.1 % (0.00-10.9); Hematocrit 27.9 VOL% (35.7-47.0); Hemoglobin 8.8 GM/DL (12.0-16.0); Immature Granulocytes % 0.4 %; Immature Granulocytes Absolute 0.03 #; Lymphocytes # 1.2 10*3/uL (1.4-4.0); Lymphocytes % 15.2 % (21.3-54.2); Mean Corpuscular HGB Conc 31.5 GM/DL (32-36); Mean Corpuscular Volume 86.4 FL (87-102); Mean Platelet Volume 9.8 FL (9.6-12.0); Monocytes % 15.3 % (1.7-12.7); Neutrophils % 68.4 % (38.7-73.9); Platelet Count 294 T/CUMM (130-400); Red Blood Count 3.23 MC/CUMM (3.8-5.5); Red Cell Distribution Width 14.5 % (9.3-17.3); White Blood Count 8.1 T/CUMM (4-12)
[2020-12-30 05:47] LABS: Calcium 8.3 MG/DL (8.5-10.1); Osmolality,Calculated 274.7 MOS/KG (273-304); Potassium 4.6 MMOL/L (3.5-5.1)
[2020-12-30] MEDS: PANTOPRAZOLE 40 MG TABLET PO SCH (08:33)
[2020-12-30] MEDS: busPIRone 15 MG TABLET PO SCH ×3 (08:33→21:27)
[2020-12-30] MEDS: DIVALPROEX SPRINKLE 125 MG CAPSULE PO SCH ×2 (08:33→21:26)
[2020-12-30] MEDS: APIXABAN 5 MG TABLET PO SCH ×2 (08:33→21:27)
[2020-12-30] MEDS: FERROUS SULFATE 325 MG TABLET PO SCH (08:33)
[2020-12-30] MEDS: LEVOTHYROXINE 125 MCG TABLET PO SCH (08:33)
[2020-12-30] MEDS: carvediloL 12.5 MG TABLET PO SCH ×2 (08:34→21:26)
[2020-12-30] MEDS: SODIUM CHLORIDE 0.9% 1,000 ML IV SCH ×2 (12:28→21:28)
[2020-12-30] MEDS: MEROPENEM 500 MG in SODIUM CHLORIDE 0.9% 100 ML IV SCH (14:47)
[2020-12-30] MEDS: POLYETHYLENE GLYCOL POWDER 17 GM PACK PO SCH (21:27)
[2020-12-30] MEDS: ONDANSETRON 4 MG/2 ML VIAL IV PRN (21:32)
[2020-12-31] MEDS: ACETAMINOPHEN 325 MG TABLET PO PRN ×3 (01:45→22:15)
[2020-12-31] MEDS: MEROPENEM 500 MG in SODIUM CHLORIDE 0.9% 100 ML IV SCH ×2 (04:01→15:14)
[2020-12-31 05:00] LABS: Basophils # 0.1 10*3/uL (0.0-0.2); Basophils % 0.6 % (0.0-0.8); Eosinophils # 0.1 10*3/uL (0.0-0.87); Hematocrit 28.9 VOL% (35.7-47.0); Hemoglobin 9.1 GM/DL (12.0-16.0); Immature Granulocytes % 0.6 %; Immature Granulocytes Absolute 0.05 #; Lymphocytes # 1.4 10*3/uL (1.4-4.0); Lymphocytes % 16.7 % (21.3-54.2); Mean Corpuscular HGB Conc 31.5 GM/DL (32-36); Mean Corpuscular Volume 86.8 FL (87-102); Mean Platelet Volume 10.2 FL (9.6-12.0); Monocytes % 17.2 % (1.7-12.7); Neutrophils % 63.9 % (38.7-73.9); Platelet Count 291 T/CUMM (130-400); Red Blood Count 3.33 MC/CUMM (3.8-5.5); Red Cell Distribution Width 14.5 % (9.3-17.3); White Blood Count 8.6 T/CUMM (4-12)
[2020-12-31 05:27] LABS: Hypochromasia 1+; Lymphocytes 20 % (20-55); Microcytosis 1+; Platelet Estimate Adequate; Segmented Neutrophils 63 % (50-85); Total Cells Counted 100
[2020-12-31 05:29] LABS: Calcium 8.3 MG/DL (8.5-10.1); Osmolality,Calculated 275.4 MOS/KG (273-304); Potassium 4.4 MMOL/L (3.5-5.1)
[2020-12-31] MEDS: LEVOTHYROXINE 125 MCG TABLET PO SCH (08:32)
[2020-12-31] MEDS: POLYETHYLENE GLYCOL POWDER 17 GM PACK PO SCH ×2 (08:33→22:15)
[2020-12-31] MEDS: busPIRone 15 MG TABLET PO SCH ×3 (08:33→22:15)
[2020-12-31] MEDS: DIVALPROEX SPRINKLE 125 MG CAPSULE PO SCH ×2 (08:33→22:16)
[2020-12-31] MEDS: FERROUS SULFATE 325 MG TABLET PO SCH (08:33)
[2020-12-31] MEDS: carvediloL 12.5 MG TABLET PO SCH ×2 (08:33→22:15)
[2020-12-31] MEDS: PANTOPRAZOLE 40 MG TABLET PO SCH (08:33)
[2020-12-31] MEDS: APIXABAN 5 MG TABLET PO SCH ×2 (08:33→22:15)
[2020-12-31] MEDS: ONDANSETRON 4 MG/2 ML VIAL IV PRN ×3 (08:38→22:16)
[2020-12-31] MEDS: SODIUM CHLORIDE 0.9% 1,000 ML IV SCH ×2 (08:40→19:00)
[2020-12-31 18:17] LABS: ABG Base Excess -2.1 MMOL/L (-2.5-2.5); ABG HCO3 22.6 MMOL/L (20-26); ABG Oxygen Saturation 91.3 % (95-100); ABG PCO2 39.5 MM HG (35-48); ABG PH 7.372 (7.35-7.45); ABG PO2 63.5 MM HG (80-95); ABG TCO2 20.9 MMOL/L (23-27); Allen Test Positive
[2020-12-31] MEDS ORDERED: VANCOMYCIN INJ 1,000 MG in SODIUM CHLORIDE 0.9% 250 ML IV SCH (20:00)
[2020-12-31] MEDS: ALBUTEROL/IPRATROPIUM 3 ML NEB RESP TX SCH ×2 (20:00→23:36)
[2020-12-31] MEDS ORDERED: VANCOMYCIN INJ 1,750 MG in SODIUM CHLORIDE 0.9% 500 ML IV ONE (21:00)
[2021-01-01] MEDS: ONDANSETRON 4 MG/2 ML VIAL IV PRN ×2 (02:37→07:37)
[2021-01-01] MEDS: MEROPENEM 500 MG in SODIUM CHLORIDE 0.9% 100 ML IV SCH ×2 (02:38→15:11)
[2021-01-01] MEDS: ALBUTEROL/IPRATROPIUM 3 ML NEB RESP TX SCH ×6 (03:13→23:59)
[2021-01-01 05:33] LABS: Calcium 8.8 MG/DL (8.5-10.1); Osmolality,Calculated 272.2 MOS/KG (273-304); Potassium 4.2 MMOL/L (3.5-5.1)
[2021-01-01 05:46] LABS: Basophils # 0.1 10*3/uL (0.0-0.2); Basophils % 0.6 % (0.0-0.8); Eosinophils % 0.2 % (0.00-10.9); Hematocrit 32.4 VOL% (35.7-47.0); Hemoglobin 10.6 GM/DL (12.0-16.0); Immature Granulocytes % 1.9 %; Immature Granulocytes Absolute 0.27 #; Lymphocytes # 1.1 10*3/uL (1.4-4.0); Lymphocytes % 7.6 % (21.3-54.2); Mean Corpuscular HGB Conc 32.7 GM/DL (32-36); Mean Corpuscular Volume 85.5 FL (87-102); Mean Platelet Volume 9.6 FL (9.6-12.0); Monocytes % 7.4 % (1.7-12.7); Neutrophils % 82.3 % (38.7-73.9); Red Blood Count 3.79 MC/CUMM (3.8-5.5); Red Cell Distribution Width 14.5 % (9.3-17.3)
[2021-01-01 06:00] LABS: Platelet Count 410 T/CUMM (130-400); White Blood Count 14.1 T/CUMM (4-12)
[2021-01-01 06:02] LABS: Alanine Aminotransferase 72 U/L (13-56); Aspartate Amino Transferase 82 U/L (0-37)
[2021-01-01 06:26] LABS: Anisocytosis 1+; Band Neutrophils 32 % (0-10); Lymphocytes 10 % (20-55); Nucleated Red Blood Cells 1 (0-5); Platelet Estimate Normal; Segmented Neutrophils 51 % (50-85); Total Cells Counted 100
[2021-01-01] MEDS: busPIRone 15 MG TABLET PO SCH ×3 (09:49→22:50)
[2021-01-01] MEDS: PANTOPRAZOLE 40 MG TABLET PO SCH (09:50)
[2021-01-01] MEDS: FERROUS SULFATE 325 MG TABLET PO SCH (09:50)
[2021-01-01] MEDS: carvediloL 12.5 MG TABLET PO SCH ×2 (09:50→22:51)
[2021-01-01] MEDS: APIXABAN 5 MG TABLET PO SCH ×2 (09:50→22:50)
[2021-01-01] MEDS: POLYETHYLENE GLYCOL POWDER 17 GM PACK PO SCH ×2 (09:50→22:51)
[2021-01-01] MEDS: DIVALPROEX SPRINKLE 125 MG CAPSULE PO SCH ×2 (09:50→22:51)
[2021-01-01] MEDS: LEVOTHYROXINE 125 MCG TABLET PO SCH (09:54)
[2021-01-01] MEDS: SODIUM CHLORIDE 0.9% 1,000 ML IV SCH ×2 (10:49→16:05)
[2021-01-01] MEDS: LINEZOLID INJ 600 MG/300 ML PREMIX IV SCH ×2 (11:41→22:50)
[2021-01-02] MEDS: MEROPENEM 500 MG in SODIUM CHLORIDE 0.9% 100 ML IV SCH ×2 (03:11→14:51)
[2021-01-02] MEDS: ALBUTEROL/IPRATROPIUM 3 ML NEB RESP TX SCH ×5 (04:00→19:45)
[2021-01-02] MEDS: ONDANSETRON 4 MG/2 ML VIAL IV PRN ×2 (06:32→12:39)
[2021-01-02 06:34] LABS: Basophils # 0.1 10*3/uL (0.0-0.2); Basophils % 0.8 % (0.0-0.8); Eosinophils # 0.2 10*3/uL (0.0-0.87); Eosinophils % 2.1 % (0.00-10.9); Hematocrit 29.9 VOL% (35.7-47.0); Hemoglobin 9.8 GM/DL (12.0-16.0); Immature Granulocytes % 3.8 %; Immature Granulocytes Absolute 0.36 #; Lymphocytes # 1.2 10*3/uL (1.4-4.0); Lymphocytes % 12.3 % (21.3-54.2); Mean Corpuscular HGB Conc 32.8 GM/DL (32-36); Mean Platelet Volume 9.2 FL (9.6-12.0); Monocytes % 8.5 % (1.7-12.7); Neutrophils % 72.5 % (38.7-73.9); Platelet Count 389 T/CUMM (130-400); Red Blood Count 3.56 MC/CUMM (3.8-5.5); Red Cell Distribution Width 14.2 % (9.3-17.3); White Blood Count 9.5 T/CUMM (4-12)
[2021-01-02 06:58] LABS: Calcium 8.5 MG/DL (8.5-10.1); Potassium 3.7 MMOL/L (3.5-5.1)
[2021-01-02] MEDS: APIXABAN 5 MG TABLET PO SCH ×2 (08:42→21:45)
[2021-01-02] MEDS: FERROUS SULFATE 325 MG TABLET PO SCH (08:42)
[2021-01-02] MEDS: busPIRone 15 MG TABLET PO SCH ×3 (08:42→21:45)
[2021-01-02] MEDS: carvediloL 12.5 MG TABLET PO SCH ×2 (08:42→21:45)
[2021-01-02] MEDS: PANTOPRAZOLE 40 MG TABLET PO SCH (08:42)
[2021-01-02] MEDS: DIVALPROEX SPRINKLE 125 MG CAPSULE PO SCH ×2 (08:42→21:45)
[2021-01-02] MEDS: SODIUM CHLORIDE 0.9% 1,000 ML IV SCH ×2 (08:45→21:46)
[2021-01-02] MEDS: LEVOTHYROXINE 125 MCG TABLET PO SCH (09:58)
[2021-01-02] MEDS: LINEZOLID INJ 600 MG/300 ML PREMIX IV SCH ×2 (10:01→22:50)
[2021-01-02] MEDS: POLYETHYLENE GLYCOL POWDER 17 GM PACK PO SCH ×2 (10:03→21:45)
[2021-01-02] MEDS: ACETAMINOPHEN 325 MG TABLET PO PRN (22:13)
[2021-01-03] MEDS: ALBUTEROL/IPRATROPIUM 3 ML NEB RESP TX SCH ×6 (01:00→23:04)
[2021-01-03] MEDS: MEROPENEM 500 MG in SODIUM CHLORIDE 0.9% 100 ML IV SCH ×2 (02:43→16:12)
[2021-01-03] MEDS: ACETAMINOPHEN 325 MG TABLET PO PRN (02:47)
[2021-01-03] MEDS: ONDANSETRON 4 MG/2 ML VIAL IV PRN ×4 (06:25→18:00)
[2021-01-03 06:39] LABS: Basophils # 0.1 10*3/uL (0.0-0.2); Basophils % 1.2 % (0.0-0.8); Eosinophils # 0.2 10*3/uL (0.0-0.87); Eosinophils % 3.2 % (0.00-10.9); Hematocrit 28.8 VOL% (35.7-47.0); Hemoglobin 9.4 GM/DL (12.0-16.0); Immature Granulocytes % 5.7 %; Immature Granulocytes Absolute 0.42 #; Lymphocytes # 1.4 10*3/uL (1.4-4.0); Lymphocytes % 18.5 % (21.3-54.2); Mean Corpuscular HGB Conc 32.6 GM/DL (32-36); Mean Corpuscular Volume 84.5 FL (87-102); Mean Platelet Volume 9.2 FL (9.6-12.0); Monocytes % 10.8 % (1.7-12.7); Neutrophils % 60.6 % (38.7-73.9); Platelet Count 412 T/CUMM (130-400); Red Blood Count 3.41 MC/CUMM (3.8-5.5); Red Cell Distribution Width 14.3 % (9.3-17.3); White Blood Count 7.4 T/CUMM (4-12)
[2021-01-03 06:55] LABS: Calcium 8.1 MG/DL (8.5-10.1); Osmolality,Calculated 274.7 MOS/KG (273-304); Potassium 3.6 MMOL/L (3.5-5.1)
[2021-01-03] MEDS ORDERED: POTASSIUM CHLORIDE 20 MEQ TABLET PO ONE (09:00)
[2021-01-03] MEDS: DIVALPROEX SPRINKLE 125 MG CAPSULE PO SCH ×2 (09:25→20:53)
[2021-01-03] MEDS: SODIUM CHLORIDE 0.9% 1,000 ML IV SCH ×2 (09:25→16:55)
[2021-01-03] MEDS: busPIRone 15 MG TABLET PO SCH ×3 (09:25→20:53)
[2021-01-03] MEDS: LEVOTHYROXINE 125 MCG TABLET PO SCH (09:25)
[2021-01-03] MEDS: PANTOPRAZOLE 40 MG TABLET PO SCH (09:25)
[2021-01-03] MEDS: APIXABAN 5 MG TABLET PO SCH ×2 (09:25→20:53)
[2021-01-03] MEDS: FERROUS SULFATE 325 MG TABLET PO SCH (09:26)
[2021-01-03] MEDS: carvediloL 12.5 MG TABLET PO SCH ×2 (09:26→20:53)
[2021-01-03] MEDS: POLYETHYLENE GLYCOL POWDER 17 GM PACK PO SCH ×2 (10:29→21:12)
[2021-01-03] MEDS: LINEZOLID INJ 600 MG/300 ML PREMIX IV SCH ×2 (10:58→23:00)
[2021-01-03] MEDS ORDERED: hydrALAZINE 20 MG/1 ML VIAL IV PRN (12:44)
[2021-01-03] MEDS ORDERED: MORPHINE 2 MG/1 ML SYRINGE IV ONE (16:38)
[2021-01-04] MEDS: ONDANSETRON 4 MG/2 ML VIAL IV PRN ×2 (01:06→11:08)
[2021-01-04] MEDS: MEROPENEM 500 MG in SODIUM CHLORIDE 0.9% 100 ML IV SCH ×2 (02:46→14:33)
[2021-01-04] MEDS: ALBUTEROL/IPRATROPIUM 3 ML NEB RESP TX SCH ×6 (03:36→23:55)
[2021-01-04 06:50] LABS: Basophils # 0.1 10*3/uL (0.0-0.2); Eosinophils # 0.3 10*3/uL (0.0-0.87); Eosinophils % 3.3 % (0.00-10.9); Hematocrit 31.9 VOL% (35.7-47.0); Hemoglobin 10.4 GM/DL (12.0-16.0); Immature Granulocytes % 4.9 %; Immature Granulocytes Absolute 0.44 #; Lymphocytes # 1.5 10*3/uL (1.4-4.0); Lymphocytes % 16.8 % (21.3-54.2); Mean Corpuscular HGB Conc 32.6 GM/DL (32-36); Mean Corpuscular Volume 84.2 FL (87-102); Mean Platelet Volume 8.9 FL (9.6-12.0); Monocytes % 8.2 % (1.7-12.7); Neutrophils % 65.8 % (38.7-73.9); Platelet Count 505 T/CUMM (130-400); Red Blood Count 3.79 MC/CUMM (3.8-5.5); Red Cell Distribution Width 14.4 % (9.3-17.3)
[2021-01-04 07:21] LABS: Calcium 8.5 MG/DL (8.5-10.1); Osmolality,Calculated 266.2 MOS/KG (273-304); Potassium 3.9 MMOL/L (3.5-5.1)
[2021-01-04] MEDS: busPIRone 15 MG TABLET PO SCH ×4 (08:41→22:14)
[2021-01-04] MEDS: carvediloL 12.5 MG TABLET PO SCH ×3 (08:42→22:14)
[2021-01-04] MEDS: APIXABAN 5 MG TABLET PO SCH ×3 (08:44→22:14)
[2021-01-04] MEDS: DIVALPROEX SPRINKLE 125 MG CAPSULE PO SCH ×3 (08:44→22:14)
[2021-01-04] MEDS: FERROUS SULFATE 325 MG TABLET PO SCH (08:45)
[2021-01-04] MEDS: PANTOPRAZOLE 40 MG TABLET PO SCH (08:46)
[2021-01-04] MEDS: POLYETHYLENE GLYCOL POWDER 17 GM PACK PO SCH ×3 (08:46→22:15)
[2021-01-04] MEDS: LEVOTHYROXINE 125 MCG TABLET PO SCH (08:47)
[2021-01-04] MEDS: LINEZOLID 600 MG TABLET PO SCH ×3 (10:13→22:15)
[2021-01-04] MEDS ORDERED: FUROSEMIDE 40 MG/4 ML VIAL IV ONE (13:30)
[2021-01-04] MEDS ORDERED: MAGNESIUM SULF RIDER 2 GM/50 ML PREMIX IV ONE (15:00)
[2021-01-05] MEDS: ONDANSETRON 4 MG/2 ML VIAL IV PRN ×2 (00:20→07:35)
[2021-01-05] MEDS: ALBUTEROL/IPRATROPIUM 3 ML NEB RESP TX SCH ×6 (03:35→23:05)
[2021-01-05] MEDS: MEROPENEM 500 MG in SODIUM CHLORIDE 0.9% 100 ML IV SCH ×2 (04:30→15:37)
[2021-01-05 05:38] LABS: Basophils # 0.1 10*3/uL (0.0-0.2); Basophils % 0.7 % (0.0-0.8); Eosinophils # 0.3 10*3/uL (0.0-0.87); Eosinophils % 3.1 % (0.00-10.9); Hematocrit 31.4 VOL% (35.7-47.0); Hemoglobin 10.6 GM/DL (12.0-16.0); Immature Granulocytes % 2.6 %; Immature Granulocytes Absolute 0.28 #; Lymphocytes # 1.5 10*3/uL (1.4-4.0); Lymphocytes % 14.2 % (21.3-54.2); Mean Corpuscular HGB Conc 33.8 GM/DL (32-36); Mean Corpuscular Volume 83.5 FL (87-102); Mean Platelet Volume 8.5 FL (9.6-12.0); Monocytes % 7.3 % (1.7-12.7); Neutrophils % 72.1 % (38.7-73.9); Platelet Count 498 T/CUMM (130-400); Red Blood Count 3.76 MC/CUMM (3.8-5.5); Red Cell Distribution Width 14.2 % (9.3-17.3); White Blood Count 10.8 T/CUMM (4-12)
[2021-01-05 05:54] LABS: Calcium 8.4 MG/DL (8.5-10.1); Osmolality,Calculated 269.1 MOS/KG (273-304); Potassium 3.7 MMOL/L (3.5-5.1)
[2021-01-05] MEDS ORDERED: FUROSEMIDE 100 MG/10 ML VIAL IV ONE (09:00)
[2021-01-05] MEDS ORDERED: POTASSIUM CHLORIDE 20 MEQ TABLET PO ONE (09:00)
[2021-01-05] MEDS: PANTOPRAZOLE 40 MG TABLET PO SCH (10:05)
[2021-01-05] MEDS: LINEZOLID 600 MG TABLET PO SCH ×2 (10:06→20:59)
[2021-01-05] MEDS: LEVOTHYROXINE 125 MCG TABLET PO SCH (10:06)
[2021-01-05] MEDS: busPIRone 15 MG TABLET PO SCH ×3 (10:06→20:59)
[2021-01-05] MEDS: DIVALPROEX SPRINKLE 125 MG CAPSULE PO SCH ×2 (10:07→20:59)
[2021-01-05] MEDS: FERROUS SULFATE 325 MG TABLET PO SCH (10:07)
[2021-01-05] MEDS: APIXABAN 5 MG TABLET PO SCH ×2 (10:07→20:59)
[2021-01-05] MEDS: carvediloL 12.5 MG TABLET PO SCH ×2 (10:07→20:59)
[2021-01-05] MEDS: POLYETHYLENE GLYCOL POWDER 17 GM PACK PO SCH ×2 (10:08→20:59)
[2021-01-05] MEDS: ACETAMINOPHEN 325 MG TABLET PO PRN ×2 (10:13→23:41)
[2021-01-05] MEDS ORDERED: diphenhydrAMINE CAP 25 MG CAPSULE PO PRN (14:40)
[2021-01-06 00:56] LABS: CDT Result Negative (Negative); CDT Specimen Source STOOL
[2021-01-06] MEDS: ALBUTEROL/IPRATROPIUM 3 ML NEB RESP TX SCH ×3 (03:08→11:23)
[2021-01-06] MEDS: MEROPENEM 500 MG in SODIUM CHLORIDE 0.9% 100 ML IV SCH (03:27)
[2021-01-06 05:49] LABS: Basophils # 0.1 10*3/uL (0.0-0.2); Basophils % 0.7 % (0.0-0.8); Eosinophils # 0.3 10*3/uL (0.0-0.87); Eosinophils % 3.2 % (0.00-10.9); Hematocrit 33.1 VOL% (35.7-47.0); Hemoglobin 10.4 GM/DL (12.0-16.0); Immature Granulocytes % 1.9 %; Immature Granulocytes Absolute 0.18 #; Lymphocytes # 1.6 10*3/uL (1.4-4.0); Lymphocytes % 16.9 % (21.3-54.2); Mean Corpuscular HGB Conc 31.4 GM/DL (32-36); Mean Corpuscular Volume 85.1 FL (87-102); Mean Platelet Volume 8.5 FL (9.6-12.0); Monocytes % 8.6 % (1.7-12.7); Neutrophils % 68.7 % (38.7-73.9); Platelet Count 503 T/CUMM (130-400); Red Blood Count 3.89 MC/CUMM (3.8-5.5); Red Cell Distribution Width 14.3 % (9.3-17.3); White Blood Count 9.5 T/CUMM (4-12)
[2021-01-06 06:00] LABS: Albumin 2.5 G/DL (3.4-5.0); Bilirubin,Total 0.6 MG/DL (0.20-1.00); Calcium 8.5 MG/DL (8.5-10.1); Osmolality,Calculated 270.1 MOS/KG (273-304); Potassium 3.8 MMOL/L (3.5-5.1); Total Protein 6.3 G/DL (6.4-8.2)
[2021-01-06] MEDS: busPIRone 15 MG TABLET PO SCH (08:56)
[2021-01-06] MEDS: LEVOTHYROXINE 125 MCG TABLET PO SCH (08:56)
[2021-01-06] MEDS: PANTOPRAZOLE 40 MG TABLET PO SCH (08:56)
[2021-01-06] MEDS: LINEZOLID 600 MG TABLET PO SCH (08:56)
[2021-01-06] MEDS: DIVALPROEX SPRINKLE 125 MG CAPSULE PO SCH (08:56)
[2021-01-06] MEDS: FERROUS SULFATE 325 MG TABLET PO SCH (08:56)
[2021-01-06] MEDS: carvediloL 12.5 MG TABLET PO SCH (08:56)
[2021-01-06] MEDS: APIXABAN 5 MG TABLET PO SCH (08:56)
[2021-01-06] MEDS: POLYETHYLENE GLYCOL POWDER 17 GM PACK PO SCH (08:57)
[2021-01-06 12:11] VITALS: BP 150/52
== END 2021-01-06 14:17 | DRG 682 ==
LOC: EDBD → EDUNIT# → N.ED 22:35 → N.5E 12-30 01:03 → SUATTDRO 12-30 01:03 → N.5E 12-30 02:37
PROVIDERS: ADMIT Internal Medicine; ATTEND Internal Medicine